=== PATIENT | female | born 1950 | race Caucasian/White ===

== ENCOUNTER → 2017-11-27 | Outpatient (CLI) | payer OTHER, MEDICARE ==
--- NOTE | 2017-11-27 20:15 | RADIOLOGY REPORT (SQ) ---
EXAM DESCRIPTION: MRI LUMBAR SPINE COMBO COMPLETED DATE/TIME: 11/27/2017 1:57 pm REASON FOR STUDY: OTHER SPONDYLOSIS WITH RADICULOPATHY, LUMBAR REGION (M47.26) M47.26 OTHER SPONDYL OSIS WITH RADICULOPATHY, LUMBAR REGION COMPARISON: PET-CT 04/11/2016 TECHNIQUE: Sagittal and Axial imaging includes T1, T1 post gadolinium, T2, STIR and gradient echo se quences. Coronal T2/HASTE imaging. CONTRAST TYPE AND DOSE: 15 mL Multihance. RENAL FUNCTION: GFR > 60. LIMITATIONS: None. FINDINGS: VISUALIZED UPPER ABDOMEN: Limited evaluation. No acute or suspicious findings suggested. SEGMENTATION: No transitional anatomy. The lowest well-developed disc space is labeled L5-S1. ALIGNMENT: Anatomic. VERTEBRAE: Intact. No fractures. BONE MARROW: Normal. No marrow replacement or reactive changes. DISC SIGNAL: Diffuse decreased T2 weighted intervertebral disc signal. High-grade disc space loss of height at L5-S1. POSTERIOR ELEMENTS: Right laminectomy at L3-4 HARDWARE: None in the spine. CORD AND CONUS: Normal in size and signal intensity. Conus at the L1-2 level. SOFT TISSUES: No aortic aneurysm seen. No bulky retroperitoneal adenopathy or mass. No paraspinal mas s or fluid. T11-12: Mild bilateral facet hypertrophy. No central or foraminal encroachment. T12-L1: No central or foraminal encroachment. L1-L2: Minimal posterior disc bulging. Mild bilateral facet and ligament hypertrophy. Borderline ce ntral canal narrowing. Mild bilateral inferior foraminal narrowing. L2-L3: Mild diffuse posterior disc bulging, moderate bilateral facet and ligament hypertrophy. Mild central canal narrowing. Mild bilateral inferior foraminal narrowing. L3-L4: Post right laminectomy. There is bulky bilateral facet hypertrophy, ligamentum flavum thicken ing, facet joint fluid. These findings combine with moderate posterior disc bulging cause moderate c entral canal narrowing with flattening of the thecal sac into a triangular shape, and effacement of t he CSF around the lumbar nerve roots. This is best shown on axial T2 image 18. Elsewhere at L3-4, there is moderate bilateral inferior foraminal narrowing without exiting L3 nerve root impingement. L4-L5: Mild diffuse posterior disc bulging, moderate bilateral facet and ligament hypertrophy. Borde rline central canal narrowing. Mild bilateral inferior foraminal narrowing. L5-S1: Mild diffuse posterior disc bulge with a small superimposed central protrusion. Moderate bila teral facet and ligament hypertrophy. No central stenosis. Moderate right, moderate left foraminal narrowing without definite exiting L5 nerve root impingement. SACRUM: Visualized upper sacrum intact. ENHANCEMENT: On the post contrasted images, there is enhancement of the ligamentum flavum a at L3-4. No abnormal conus or lumbar nerve root enhancement. OTHER: No other significant findings. IMPRESSION: Moderate central canal stenosis at L3-4 with facet arthropathy and enhancement of the li gamentum flavum. TECHNICAL DOCUMENTATION: JOB ID: [id number] [employer]- All Rights Reserved Reading location - IP/workstation name: [email or web address]
== END ==
LOC: RAD 12:51
PROVIDERS: ATTEND Neurological Surgery
DX: M47.26 Other spondylosis with radiculopathy, lumbar region (principal)
CPT/HCPCS: 82565; 72158; A9577

== ENCOUNTER 2018-08-10 07:26 | Day surgery (SDC) | payer BC, MEDICARE ==
--- NOTE | 2018-08-09 11:21 | RADIOLOGY REPORT (SQ) ---
EXAM DESCRIPTION: CHEST PA/LATERAL COMPLETED DATE/TIME: 08/09/2018 11:00 am REASON FOR STUDY: PRE-OP COMPARISON: 11/13/2013 EXAM PARAMETERS: NUMBER OF VIEWS: two views TECHNIQUE: Digital Frontal and Lateral radiographic views of the chest acquired. RADIATION DOSE: NA LIMITATIONS: none FINDINGS: LUNGS AND PLEURA: No opacities, masses or pneumothorax. No pleural effusion. MEDIASTINUM AND HILAR STRUCTURES: No masses or contour abnormalities. HEART AND VASCULAR STRUCTURES: Heart normal size. No evidence for failure. BONES: No acute findings. HARDWARE: None in the chest. OTHER: No other significant finding. IMPRESSION: NO SIGNIFICANT RADIOGRAPHIC FINDING IN THE CHEST. TECHNICAL DOCUMENTATION: JOB ID: [id number] [employer]- All Rights Reserved Reading location - IP/workstation name: [email or web address]
[2018-08-09 11:33] LABS: HEMATOCRIT 38.9 % (36.0-47.0); HEMOGLOBIN 13.5 g/dL (12.0-15.5); MEAN CORPUSCULAR HEMOGLOBIN 32.7 pg (27.0-33.4); MEAN CORPUSCULAR HGB CONC 34.7 g/dL (32.0-36.0); MEAN CORPUSCULAR VOLUME 94 fl (80-97); PLATELET COUNT 261 10^3/uL (150-450); RED BLOOD COUNT 4.12 10^6/uL (3.72-5.28); RED CELL DISTRIBUTION WIDTH 14.5 % (11.5-14.0); WHITE BLOOD COUNT 8.6 10^3/uL (4.0-10.5)
[2018-08-09 11:38] LABS: APPEARANCE,URINE CLOUDY; BILIRUBIN,URINE NEGATIVE (NEGATIVE); COLOR,URINE YELLOW; GLUCOSE, URINE NEGATIVE (NEGATIVE); KETONES,URINE NEGATIVE (NEGATIVE); LEUKOCYTE ESTERASE,URINE TRACE (NEGATIVE); NITRITE,URINE NEGATIVE (NEGATIVE); PROTEIN,URINE 30 mg/dL (NEGATIVE); URINE SPECIFIC GRAVITY 1.023; UROBILINOGEN,URINE NEGATIVE mg/dL (<2.0)
[2018-08-09 11:55] LABS: INTERNATIONAL RATION (INR) 0.94; PROTHROMBIN TIME 13.1 SEC (11.4-15.4)
[2018-08-09 11:56] LABS: PARTIAL THROMBOPLASTIN TIME 30.3 SEC (23.5-35.8)
--- NOTE | 2018-08-09 18:38 | EKG REPORT ---
SEVERITY:- NORMAL ECG - SINUS RHYTHM : Confirmed by: Kwabena Glover 09-Aug-2018 18:36:37
[~2018-08-10 07:26] MED LIST: CEFAZOLIN 1 GM/D5W RTU 1 GM/50 ML RTUPB IV PRN; LACTATED RINGERS 1000 ML IV PRN; LIDOCAINE 0.5% INJ-PF (5 MG/ML) 50 ML SDV SUBCUT PRN
[2018-08-10] MEDS ORDERED: BUPIVACAINE HCL 0.25% /EPINEPHRINE INJ/PF 30 ML SDV ONE ×2 (07:32→10:47)
[2018-08-10] MEDS ORDERED: SODIUM BICARBONATE 8.4% INJ 50 MEQ/50 ML DISP.SYRIN ONE (07:32)
[2018-08-10] MEDS ORDERED: LIDOCAINE 1% INJ-PF (10 MG/ML) 30 ML SDV ONE ×2 (07:32→10:50)
[2018-08-10] MEDS ORDERED: CEFAZOLIN 1 GM/D5W RTU 1 GM/50 ML RTUPB IV ONE (07:37)
[2018-08-10] MEDS ORDERED: ALBUTEROL SULFATE 0.083% NEB 2.5 MG/3 ML AMPUL NEB PRN (08:47)
[2018-08-10] MEDS ORDERED: ALBUTEROL SULFATE 0.083% NEB 2.5 MG/3 ML AMPUL NEB ONE (09:03)
[2018-08-10] MEDS ORDERED: MIDAZOLAM 2 MG/2 ML INJ ONE ×2 (09:18→10:02)
[2018-08-10] MEDS ORDERED: ONDANSETRON HCL INJ/PF 4 MG/2 ML SDV ONE (10:02)
[2018-08-10] MEDS ORDERED: FENTANYL CITRATE INJ/PF 100 MCG/2 ML AMPUL ONE (10:02)
[2018-08-10] MEDS ORDERED: PROPOFOL INJ 200 MG/20 ML VIAL IV ONE (10:03)
[2018-08-10] MEDS ORDERED: DIPHENHYDRAMINE HCL 50 MG/ML VIAL IV PRN (10:42)
[2018-08-10] MEDS ORDERED: PROMETHAZINE HCL INJ 25 MG/1 ML VIAL IV PRN (10:42)
[2018-08-10] MEDS ORDERED: MEPERIDINE HCL/PF INJ 25 MG/1 ML DISP.SYRIN IV PRN (10:42)
[2018-08-10] MEDS ORDERED: FENTANYL CITRATE INJ/PF 100 MCG/2 ML AMPUL IV PRN ×3 (10:42)
[2018-08-10] MEDS ORDERED: MORPHINE SULFATE 10 MG/ML INJ IV PRN (10:42)
[2018-08-10] MEDS ORDERED: CEFAZOLIN INJ 1 GM VIAL ONE (12:00)
[2018-08-10] MEDS: FENTANYL CITRATE INJ/PF 100 MCG/2 ML AMPUL ONE ×2 (12:05→12:15)
[2018-08-10] MEDS ORDERED: OXYCODONE-ACETAMINOPHEN 5-325 MG TABLET PO PRN (12:16)
--- NOTE | 2018-08-10 12:27 | OPERATIVE REPORT E ---
Operative Report NAME: PARESH FRANCISCO : 1950 AGE: 67Y DATE OF SURGERY: 08/10/2018 ROOM: PREOPERATIVE DIAGNOSIS: Lumbar radiculopathy. POSTOPERATIVE DIAGNOSIS: Lumbar radiculopathy. OPERATION: Spinal cord stimulator implantation with Dual leads and pulse generator lumbar radiculopathy with [employer]. SURGEON: JUAN ALBERTO ALEXANDRA M.D. TRAIN ATTENDANT: Raman Acosta MD ANESTHESIA: MAC. COMPLICATIONS: None. PROCEDURE IN DETAIL: After obtaining informed consent, I advised the patient of all the risks and benefits including serious neurologic injury, bleeding, infection, spinal fluid leak, allergic reaction, paralysis, nerve injury, , and failure to obtain satisfactory relief. She was taken to the operating room, placed comfortably in the prone position. MAC anesthesia was administered after application of monitoring. She was then prepped with ChloraPrep x2 and then draped. After appropriate waiting and drying time, she was then evaluated under fluoroscopy and adequate space was found at T12-L1. The skin over both of the pre-marked buttock incision on the left and the midline were anesthetized with 1% lidocaine with bicarbonate followed by 0.25% bupivacaine with epinephrine. Beginning at the midline incision, sharp and blunt dissection was performed down to the fascia. Using a left paramedian approach, a 14-gauge Tuohy needle was placed into the epidural space at T12-L1 level. Loss of resistance with saline technique was utilized beginning with the first needle. Electrode was advanced under fluoroscopic guidance at the bottom of T7, being positioned in the midline. A second lead was placed through a second needle using the same technique with loss of resistance to saline using a right paramedian approach on the right side. Lateral views were taken and initially showed satisfactory placement. The leads were then tested and appropriate stimulation was found with discussion with the patient and the [employer] rep. Once again, the lead was then secured using pursestrings with anchors in place. The anchors were then sutured in place. The needles were removed sequentially and the pursestrings were secured and the anchor was placed and secured as well. While lead positioning was occurring, Raman Acosta M.D. was assisting in creating the pocket for the new pulse generator. As soon as the pocket was made, proper hemostasis was confirmed. The skin between tunneling had been performed using anesthesia, 1% lidocaine and standard tunneling tool. Both incisions were felt to be satisfactory and proper hemostasis was confirmed. The wires were easily placed in the midline incision and stitched to the pocket and connected to the pulse generator which was then tested and appropriate communication was made. All connections were secured and the generator was then placed in the pocket, assessed and found to be satisfactory. Position was again checked via fluoroscopy in both the AP and lateral views. The wounds were then copiously irrigated. The areas were then closed with interrupted vertical mattress sutures using 3-0 Vicryl and 2-0 Vicryl for the deeper layer in the midline. Tape and Dermabond and skin cement was used. No mala were used. OpSite dressings were placed over the tape. The patient was then taken to the PACU for further postoperative care, wound care and management. DICTATING PHYSICIAN: JUAN ALBERTO ALEXANDRA M.D. [id number] PHY#: [id number] ID: [id number] JOB#: [id number] ACCT: [id number] cc:JUAN ALBERTO ALEXANDRA M.D. >
[2018-08-10] MEDS ORDERED: ACETAMINOPHEN 1,000 MG/100 ML RTUPB IV ONE (12:43)
[2018-08-10] MEDS ORDERED: KETOROLAC TROMETHAMINE INJ/PF 30 MG/1 ML SDV ONE (13:28)
--- NOTE | 2018-08-10 13:38 | RADIOLOGY REPORT (SQ) ---
EXAM DESCRIPTION: NO CHG FLUORO; THORACOLUMBAR SPINE AP/LAT COMPLETED DATE/TIME: 08/10/2018 12:58 pm REASON FOR STUDY: SPINAL STIMULATOR PLCMT ASST WITH FLUORO IN OR COMPARISON: None. FLUOROSCOPY TIME: 4.1 minutes 7 Images saved to PACS LIMITATIONS: None. PROCEDURE: Neurostimulator electrode placement. FINDINGS: Images from fluoro document the placement of the neurostimulator electrodes in the mid to lower thoracic spine. IMPRESSION: Neurostimulator electrode placement. Refer to operative note for further information. COMMENT: PQRS 6045F: Fluoroscopy time of the procedure is documented in the report. TECHNICAL DOCUMENTATION: JOB ID: [id number] [employer]- All Rights Reserved Reading location - IP/workstation name: [email or web address]
--- NOTE | 2018-08-10 13:38 | RADIOLOGY REPORT (SQ) ---
EXAM DESCRIPTION: NO CHG FLUORO; THORACOLUMBAR SPINE AP/LAT COMPLETED DATE/TIME: 08/10/2018 12:58 pm REASON FOR STUDY: SPINAL STIMULATOR PLCMT ASST WITH FLUORO IN OR COMPARISON: None. FLUOROSCOPY TIME: 4.1 minutes 7 Images saved to PACS LIMITATIONS: None. PROCEDURE: Neurostimulator electrode placement. FINDINGS: Images from fluoro document the placement of the neurostimulator electrodes in the mid to lower thoracic spine. IMPRESSION: Neurostimulator electrode placement. Refer to operative note for further information. COMMENT: PQRS 6045F: Fluoroscopy time of the procedure is documented in the report. TECHNICAL DOCUMENTATION: JOB ID: [id number] [employer]- All Rights Reserved Reading location - IP/workstation name: [email or web address]
[2018-08-10] MEDS ORDERED: OXYCODONE-ACETAMINOPHEN 5-325 MG TABLET ONE (13:59)
[2018-08-10 16:22] VITALS: BP 122/62
== END 2018-08-10 16:00 | disposition home or self-care (01) ==
LOC: OROUT 07:26
PROVIDERS: ATTEND Student in an Organized Health Care Education/Training Program
DX: M54.16 Radiculopathy, lumbar region (principal); Z79.899 Other long term (current) drug therapy; Z79.82 Long term (current) use of aspirin; F17.210 Nicotine dependence, cigarettes, uncomplicated; M19.90 Unspecified osteoarthritis, unspecified site; Z85.3 Personal history of malignant neoplasm of breast
CPT/HCPCS: 93005; 36415; 85027; 85610; 85730; 81001; 71046; 72080; 93010; 94640; 63685; 63650; C1778; C1820; C1713; J2250; J3490 ×3; J0690 ×2; J3010; J1885; J2405; J2704; J0131; 1936

== ENCOUNTER 2018-08-11 12:45 | Emergency (ER) | payer BC, MEDICARE ==
--- NOTE | 2018-08-11 13:14 | ER Document Report ---
ED General - General Chief Complaint: Back Pain Stated Complaint: BACK PAIN Time Seen by Provider: 08/11/18 13:13 TRAVEL OUTSIDE OF THE [place] IN LAST 30 DAYS: No - Related Data Allergies/Adverse Reactions: No Known Allergies Allergy (Verified 08/10/18 07:42) Past Medical History - Social History Smoking Status: Former Smoker Smoking Education Provided: Yes Family History: Reviewed & Not Pertinent - Past Medical History Cardiac Medical History: Denies: Hx Coronary Artery Disease, Hx Heart Attack, Hx Hypertension Pulmonary Medical History: Denies: Hx Asthma, Hx Bronchitis, Hx COPD, Hx Pneumonia Neurological Medical History: Denies: Hx Cerebrovascular Accident, Hx Seizures Musculoskeletal Medical History: Denies Hx Arthritis Psychiatric Medical History: Reports: Hx Anxiety - Immunizations Hx Diphtheria, Pertussis, Tetanus Vaccination: Yes Physical Exam - Vital signs Vitals: Temp Pulse Resp BP Pulse Ox 97.9 F 92 18 115/88 H 95 08/11/18 12:56 08/11/18 12:56 08/11/18 12:56 08/11/18 12:56 08/11/18 12:56 Course - Re-evaluation Re-evalutation: 67-year-old female who underwent implantation of a spinal stimulator yesterday for chronic pain and issues worse usually in her left leg who thereafter had worsening pain in her right leg following returning home. Her examination however does not demonstrate any obvious neurologic deficit she has intact patellar reflexes. She has intact strength in all extensors and flexors in her right lower extremity, 5 out of 5. Sp[address] Juan Alberto Trevino her anesthesiologist and interventionalist who performed her procedure yesterday he notes that his concerns would potentially be neuritis as a result of lead implantation possible DVT or hematoma around the spine. He had requested that the patient come to his office which she said because of the pain she was concerned she would be unable to make it. I discussed with the patient the concerns expressed by Dr. Trevino, though my examination is not consistent with DVT or an obvious hematoma as she is neurologically intact in the right lower extremity it is still possibly a risk, she stated that if she could have the appropriate level of pain control she does not think there would be an issue. She states that she does not wish to pursue workup of these diagnoses at this time. Because of this we agreed to treat presumptively neuritis with a burst of steroids. She also is able to see Dr. Trevino tomorrow in his office as he is agreed to this with me on the phone earlier. She stated that she will use the steroids prescribed, I did give her a shot of Toradol in the emergency department which helped greatly with her pain she also got a low-dose of an oral narcotic. Following administration of these analgesia measurements her pain did improve and she was able to ambulate with little assistance. I do not believe that she requires further investigation at this time she agreed with me. We will plan for her to undergo discharge and follow-up tomorrow with Dr. Trevino. At this time I do not believe that she has a DVT, large hematoma, CVA, or cauda equina syndrome. - Vital Signs Vital signs: Temp Pulse Resp BP Pulse Ox 97.7 F 85 18 141/60 H 93 08/11/18 15:47 08/11/18 15:47 08/11/18 15:47 08/11/18 15:47 08/11/18 15:47 Discharge - Discharge Clinical Impression: Leg pain, right Post-operative complication Qualifiers: Surgical complication system/body Area: musculoskeletal system Surgical complication type: unspecified Procedure type: musculoskeletal Qualified Code(s) : M96.89 - Other intraoperative and postprocedural complications and disorders of the musculoskeletal system Condition: Good Disposition: HOME, SELF-CARE Instructions: Oral Narcotic Medication ([facility]), Steroid Medication Additional Instructions: You were seen today in the emergency department for the pain in your leg after having a procedure done yesterday. You had evaluation including a physical exam. I spoke to your doctor, Dr. Lim. He is willing to see you tomorrow in clinic. Call his clinic at [phone] for your appointment tomorrow. Use the steroids prescribed to you as directed to help with your possible neuritis. Use the pain medication only as needed. We spoke about whether or not this could potentially be a clot in your leg or hematoma both which seem unlikely. We deferred doing any studies today, if you return we will consider doing further tests. If you are unable to go to your doctor tomorrow please return and we will reevaluate you. Prescriptions: Hydrocodone/Acetaminophen [[place] 10-325 Tablet] 1 each PO Q8 PRN 2 Days #5 tablet PRN Reason: For Pain Scale 4-5 Prednisone 50 mg PO DAILY 5 Days #5 tablet Referrals: JUAN ALBERTO TREVINO MD [ACTIVE STAFF] - Follow up tomorrow
[2018-08-11] MEDS ORDERED: OXYCODONE-ACETAMINOPHEN 5-325 MG TABLET PO ONE (13:44)
[2018-08-11] MEDS ORDERED: PREDNISONE 20 MG TABLET PO ONE (14:26)
[2018-08-11] MEDS ORDERED: KETOROLAC TROMETHAMINE 60 MG/2 ML SDV IM ONE (14:29)
[2018-08-11 15:49] VITALS: BP 141/60
== END 2018-08-11 15:49 | disposition home or self-care (01) ==
LOC: ER 12:45
DX: M96.89 Other intraoperative and postprocedural complications and disorders of the musculoskeletal system (principal); Y83.8 Other surgical procedures as the cause of abnormal reaction of the patient, or of later complication, without mention of misadventure at the time of the procedure; M79.604 Pain in right leg; G89.29 Other chronic pain
CPT/HCPCS: 99283; 96372; J1885; J7512

== ENCOUNTER 2018-09-10 10:26 | Emergency (ER) | payer BC, MEDICARE ==
[2018-09-10] MEDS ORDERED: NORMAL SALINE 500 ML IV ONE (11:02)
[2018-09-10 11:56] LABS: HEMATOCRIT 40.4 % (36.0-47.0); HEMOGLOBIN 13.7 g/dL (12.0-15.5); MEAN CORPUSCULAR HEMOGLOBIN 31.9 pg (27.0-33.4); MEAN CORPUSCULAR HGB CONC 33.8 g/dL (32.0-36.0); MEAN CORPUSCULAR VOLUME 94 fl (80-97); PLATELET COUNT 316 10^3/uL (150-450); RED BLOOD COUNT 4.29 10^6/uL (3.72-5.28); WHITE BLOOD COUNT 22.2 10^3/uL (4.0-10.5)
[2018-09-10 12:14] LABS: ALANINE AMINOTRANSFERASE 24 U/L (9-52); ALBUMIN 4.6 g/dL (3.5-5.0); ALKALINE PHOSPHATASE 140 U/L (38-126); ANION GAP 11 (5-19); ASPARTATE AMINO TRANSFERASE 80 U/L (14-36); BILIRUBIN,DIRECT 0.3 mg/dL (0.0-0.4); BILIRUBIN,TOTAL 0.6 mg/dL (0.2-1.3); BLOOD UREA NITROGEN 18 mg/dL (7-20); CALCIUM 9.8 mg/dL (8.4-10.2); CARBON DIOXIDE 26 mmol/L (22-30); CHLORIDE 105 mmol/L (98-107); GLUCOSE 115 mg/dL (75-110); POTASSIUM 4.2 mmol/L (3.6-5.0); SODIUM 142.2 mmol/L (137-145); TOTAL PROTEIN 8.2 g/dL (6.3-8.2)
[2018-09-10 12:20] LABS: ABSOLUTE LYMPHOCYTES# (MANUAL) 2.7 10^3/uL (0.5-4.7); ABSOLUTE MONOCYTES # (MANUAL) 0.9 10^3/uL (0.1-1.4); ABSOLUTE NEUTROPHILS# (MANUAL) 18.6 10^3/uL (1.7-8.2); BASOPHILS % (MANUAL) 0 % (0-2); EOSINOPHILS % (MANUAL) 0 % (0-6); LYMPHOCYTES % (MANUAL) 11 % (13-45); MONOCYTES % (MANUAL) 4 % (3-13); PLATELET COMMENT ADEQUATE; RBC MORPHOLOGY COMMENT NORMO-CYTIC/CHROMIC; SEGMENTED NEUTROPHILS % (MAN) 84 % (42-78); TOTAL CELLS COUNTED 100
[2018-09-10 12:26] LABS: C-REACTIVE PROTEIN 185.5 mg/L (<10.0)
[2018-09-10 12:32] LABS: ERYTHROCYTE SEDIMENTATION RATE 54 mm/hr (0-30)
--- NOTE | 2018-09-10 14:07 | RADIOLOGY REPORT (SQ) ---
EXAM DESCRIPTION: CT HEAD WITHOUT COMPLETED DATE/TIME: 09/10/2018 1:52 pm REASON FOR STUDY: rle weakness COMPARISON: None. TECHNIQUE: Axial images acquired through the brain without intravenous contrast. Images reviewed wi th bone, brain and subdural windows. Additional sagittal and coronal reconstructions were generated. Images stored on PACS. All CT scanners at this facility use dose modulation, iterative reconstruction, and/or weight based d osing when appropriate to reduce radiation dose to as low as reasonably achievable (ALARA). [facility]: Dose Right [facility]: CareDose [facility]: Dose Right [facility]: Teradose 4D [facility]: Smart hopTo RADIATION DOSE: CT Rad equipment meets quality standard of care and radiation dose reduction techniq ues were employed. CTDIvol: 53.2 mGy. DLP: 991 mGy-cm. mGy. LIMITATIONS: None. FINDINGS: VENTRICLES: Normal size and contour. CEREBRUM: No masses. No hemorrhage. No midline shift. No evidence for acute infarction. Normal gra y/white matter differentiation. No areas of low density in the white matter. CEREBELLUM: No masses. No hemorrhage. No alteration of density. No evidence for acute infarction. EXTRAAXIAL SPACES: No fluid collections. No masses. ORBITS AND GLOBE: No intra- or extraconal masses. Normal contour of globe without masses. CALVARIUM: No fracture. PARANASAL SINUSES: Mucosal thickening of the maxillary sinuses and ethmoid air cells with small bila teral air fluid levels of the maxillary sinuses. SOFT TISSUES: No mass or hematoma. OTHER: No other significant finding. IMPRESSION: 1. NO ACUTE INTRACRANIAL IMAGING FINDINGS. 2. Paranasal sinus disease. Correlate for signs and symptoms of acute sinusitis. EVIDENCE OF ACUTE STROKE: NO. COMMENT: Quality ID # [id number]: Final reports with documentation of one or more dose reduction techniques (e.g., Automated exposure control, adjustment of the mA and/or kV according to patient size, use of iterative reconstruction technique) TECHNICAL DOCUMENTATION: JOB ID: [id number] [employer] - [facility]- All Rights Reserved Reading location - IP/workstation name: [email or web address]
--- NOTE | 2018-09-10 16:25 | RADIOLOGY REPORT (SQ) ---
EXAM DESCRIPTION: MRI LUMBAR SPINE COMBO COMPLETED DATE/TIME: 09/10/2018 3:35 pm REASON FOR STUDY: Right leg weakness history of spinal stimulator COMPARISON: None. TECHNIQUE: Sagittal and Axial imaging includes T1, T1 post gadolinium, T2, STIR and gradient echo se quences. Coronal T2/HASTE imaging. CONTRAST TYPE AND DOSE: ML RENAL FUNCTION: Creatinine 0.8 LIMITATIONS: None. FINDINGS: VISUALIZED UPPER ABDOMEN: Limited evaluation. No acute or suspicious findings suggested. SEGMENTATION: No transitional anatomy. The lowest well-developed disc space is labeled L5-S1. ALIGNMENT: Anatomic. VERTEBRAE: Intact. No fractures. BONE MARROW: Normal. No marrow replacement or reactive changes. DISC SIGNAL: Disc desiccation and height loss at L5-S1. Remaining discs demonstrate normal signal. Posterior disc bulges as detailed below. POSTERIOR ELEMENTS: Generally intact. No pars defect evident. HARDWARE: Partially evaluated spinal stimulator device. CORD AND CONUS: There is increased T2 and STIR signal abnormality within the visualized cord extendin g from T12-L1. Cord demonstrates mild diffuse expansion compared to prior. Conus terminates at L2. SOFT TISSUES: No aortic aneurysm seen. No bulky retroperitoneal adenopathy or mass. No paraspinal mas s or fluid. L1-L2: Small broad-based disc bulge without significant spinal canal stenosis or neural foraminal aj rowing. L2-L3: Small broad-based disc bulge without significant spinal canal stenosis or neural foraminal aj rowing. L3-L4: Evidence of prior micro laminectomy on the right. Moderate broad-based disc bulge with associ ated facet hypertrophy and postsurgical changes from the micro laminectomy resulting in high-grade sp inal canal stenosis. Likely 3 mm synovial cyst on the left. Moderate bilateral neural foraminal aj rowing. L4-L5: Broad-based disc bulge and ligamentum flavum thickening with mild canal stenosis. Mild bilate ral neural foraminal narrowing. L5-S1: Disc desiccation and height loss with central disc extrusion resulting in mild canal stenosis and abutting the traversing nerve roots bilaterally. There is jezs-xy-suzitwic bilateral neural fora dm narrowing. LOWER THORACIC: Incompletely imaged. No stenosis seen. SACRUM: Visualized upper sacrum intact. ENHANCEMENT: No abnormal masslike enhancement. OTHER: Postsurgical change in the posterior subcutaneous tissue. No focal drainable collection or ma ss. IMPRESSION: 1. Mild diffuse cord expansion and abnormal signal in the visualized cord extending fro m T12-L1. Differential includes cord edema or spinal cord infarct. 2. Multilevel degenerative changes with high-grade spinal canal stenosis at L3-4 secondary to disc, facet and postsurgical change. 3. Additional multilevel degenerative changes as detailed above. COMMENT: Findings discussed with Dr. Cortez at the time of interpretation. TECHNICAL DOCUMENTATION: JOB ID: [id number] [employer]- All Rights Reserved Reading location - IP/workstation name: [email or web address]
[2018-09-10 16:28] LABS: APPEARANCE,URINE CLEAR; BILIRUBIN,URINE NEGATIVE (NEGATIVE); COLOR,URINE YELLOW; GLUCOSE, URINE NEGATIVE (NEGATIVE); KETONES,URINE 20 mg/dL (NEGATIVE); LEUKOCYTE ESTERASE,URINE NEGATIVE (NEGATIVE); NITRITE,URINE NEGATIVE (NEGATIVE); PROTEIN,URINE >=500 mg/dL (NEGATIVE); URINE SPECIFIC GRAVITY 1.017; UROBILINOGEN,URINE NEGATIVE mg/dL (<2.0)
--- NOTE | 2018-09-10 16:30 | ER Document Report ---
ED General - General TRAVEL OUTSIDE OF THE U.S. IN LAST 30 DAYS: No - HPI Patient complains to provider of: Right leg weakness <BUCK GALLO - Last Filed: 09/10/18 16:37> <VALENTINO ZARATE - Last Filed: 09/11/18 02:33> - General Chief Complaint: Fall Stated Complaint: RIGHT LEG WEAKNESS Time Seen by Provider: 09/10/18 10:53 - HPI Notes: Patient coming in for evaluation of right leg weakness. Patient on August 10 had a spinal cord similar placed in patient did follow-up on the due to some right leg weakness was thought to be postop neuritis started on steroids patient states did have a period of feeling better however worse over the last few days patient was able to see the paint roller cover machine setter that placed the stimulator in 24 hours ago was scheduled to have MRI however unfortunately did not have the proper equipment to have the MRI performed patient continued to have right leg weakness therefore came to the ER today for further evaluation. Patient states that she has had bowel bladder incontinence along with numbness and tingling of the perineal region. Patient states that she has been having difficulty in ambulating EMS reports that the patient was dragging her right foot when trying to get to the EMS stretcher. Patient otherwise does have a history of anxiety and hypertension. Patient denies any fevers chills or nausea (BUCK GALLO) - Related Data Allergies/Adverse Reactions: No Known Allergies Allergy (Verified 08/10/18 07:42) Past Medical History - Social History Smoking Status: Former Smoker Frequency of alcohol use: Social Drug Abuse: Marijuana Family History: Reviewed & Not Pertinent Patient has suicidal ideation: No Patient has homicidal ideation: No - Past Medical History Cardiac Medical History: Denies: Hx Coronary Artery Disease, Hx Heart Attack, Hx Hypertension Pulmonary Medical History: Denies: Hx Asthma, Hx Bronchitis, Hx COPD, Hx Pneumonia Neurological Medical History: Denies: Hx Cerebrovascular Accident, Hx Seizures Renal/ Medical History: Denies: Hx Peritoneal Dialysis Musculoskeletal Medical History: Denies Hx Arthritis Psychiatric Medical History: Reports: Hx Anxiety Past Surgical History: Reports: Hx Appendectomy, Hx Breast Surgery - lumpectomy, Hx Hysterectomy, Hx Neurologic Surgery - spinal stimulator 08/10/2018, Hx Orthopedic Surgery - L knee - Immunizations Hx Diphtheria, Pertussis, Tetanus Vaccination: Yes <BUCK GALLO - Last Filed: 09/10/18 16:37> Review of Systems - Review of Systems Constitutional: No symptoms reported EENT: No symptoms reported Cardiovascular: No symptoms reported Respiratory: No symptoms reported Gastrointestinal: No symptoms reported Genitourinary: No symptoms reported Female Genitourinary: No symptoms reported Musculoskeletal: Other - Weakness Skin: No symptoms reported Hematologic/Lymphatic: No symptoms reported Neurological/Psychological: Weakness -: Yes All other systems reviewed and negative <BUCK GALLO - Last Filed: 09/10/18 16:37> Physical Exam - Vital signs Interpretation: Normal - General General appearance: Appears well, Alert - HEENT Head: Normocephalic, Atraumatic Eyes: Normal Pupils: PERRL - Respiratory Respiratory status: No respiratory distress Chest status: Nontender Breath sounds: Normal Chest palpation: Normal - Cardiovascular Rhythm: Regular Heart sounds: Normal auscultation Murmur: No - Abdominal Inspection: Normal Distension: No distension Bowel sounds: Normal Tenderness: Nontender Organomegaly: No organomegaly - Back Back: Normal, Nontender - Extremities General upper extremity: Normal inspection, Nontender, Normal color, Normal ROM, Normal temperature General lower extremity: Normal inspection, Nontender, Normal color, Normal ROM, Normal temperature, Normal weight bearing. No: Sigrid's sign - Neurological Neuro grossly intact: Yes Cognition: Normal Orientation: AAOx4 Max Coma Scale Eye Opening: Spontaneous [place] Coma Scale Verbal: Oriented [place] Coma Scale Motor: Obeys Commands Max Coma Scale Total: 15 Speech: Normal Sensory: Normal - Psychological Associated symptoms: Normal affect, Normal mood - Skin Skin Temperature: Warm Skin Moisture: Dry Skin Color: Normal <BUCK GALLO - Last Filed: 09/10/18 16:37> - Vital signs Vitals: Resp Pulse Ox 14 94 09/10/18 10:32 09/10/18 10:32 - Rectal Notes: Patient with no rectal tone on examination patient does have sensation around the anal region however states that it feels different and not normal however the abnormal feeling of bilateral patient also has feeling sensation bilateral gluteal regions however again states that it feels abnormal but equal bilateral (BUCK GALLO) - Neurological Notes: Patient is unable to lift her leg off the stretcher has no effort with plantar or dorsiflexion of the right leg minimal with the left leg is only able to lift her left leg off the stretcher approximately 2 cm. Deep tendon reflexes are intact at the patella (BUCK GALLO) Course - Laboratory Result Diagrams: 09/10/18 11:25 09/10/18 11:25 <BUCK GALLO - Last Filed: 09/10/18 16:37> - Laboratory Result Diagrams: 09/10/18 11:25 09/10/18 11:25 <VALENTINO ZARATE - Last Filed: 09/11/18 02:33> - Re-evaluation Re-evalutation: 09/10/18 16:40 Patient's procedure was performed by Dr. Trevino of [facility] here in [place] was able to contact him who requested sed rate CBC CRP and MRI with IV contrast be performed. I have just received word from the radiologist that there is abnormal cord signal at T12-L1 is consistent with possible infarction versus edema otherwise patient does have otherwise chronic findings. I did notify the patient of these findings and they recommend transfer for neurological neurosurgical evaluation. Patient initially requested to go to [facility] then to [facility] with no symptoms is that these 3 facilities are on diversion at this time is that they are at capacity. Did contact [facility] currently waiting call back (BUCK GALLO) 09/10/18 17:18 Dr. Trevino called regarding the patient. He states that he has spoken to a neurosurgeon at [facility] who states that the spinal stimulator should be removed immediately. He questioned where the patient was going and states that he will call me back regarding a change in transfer. 09/10/18 17:34 Dr. Trevino called back and stated that neurosurgery said to continue with the transfer to [facility]. He states that he will come and assess the patient now. 09/10/18 17:35 Patient requesting her home medication of clonazepam. Patient also requesting cough medicine. 09/11/18 02:33 Patient evaluated upon transfer team arrival vital signs stable. Patient stable for transfer. (VALENTINO ZARATE) - Vital Signs Vital signs: Temp Pulse Resp BP Pulse Ox 98 F 110 H 22 H 120/50 L 94 09/10/18 23:00 09/10/18 22:21 09/10/18 23:01 09/10/18 23:01 09/10/18 22:50 - Laboratory Laboratory results interpreted by me: 09/10/18 09/10/18 09/10/18 11:25 11:25 16:10 WBC 22.2 H Seg Neuts % (Manual) 84 H Lymphocytes % (Manual) 11 L Abs Neuts (Manual) 18.6 H ESR 54 H Glucose 115 H AST 80 H Alkaline Phosphatase 140 H C-Reactive Protein 185.5 H Urine Protein >=500 H Urine Ketones 20 H Critical Care Note - Critical Care Note Total time excluding time spent on procedures (mins): 35 <BUCK GALLO - Last Filed: 09/10/18 16:37> - Critical Care Note Comments: Multiple evaluation for patient with abnormal neurological findings. (BUCK GALLO) Discharge <BUCK GALLO - Last Filed: 09/10/18 16:37> <VALENTINO ZARATE - Last Filed: 09/11/18 02:33> - Discharge Clinical Impression: Edema, spinal cord, Right leg weakness Bowel incontinence Qualifiers: Fecal incontinence type: unspecified Qualified Code(s): R15.9 - Full incontinence of feces Bladder incontinence Qualifiers: Urinary Incontinence type: unspecified incontinence Qualified Code(s): R32 - Unspecified urinary incontinence Condition: Good Disposition: [place]
[2018-09-10] MEDS ORDERED: CLONAZEPAM 1 MG TABLET PO ONE (17:19)
[2018-09-10] MEDS ORDERED: BENZONATATE 100 MG CAPSULE PO ONE (20:42)
[2018-09-10 23:46] VITALS: BP 120/50
== END 2018-09-10 23:30 | disposition short-term general hospital (02) ==
LOC: ER 10:26
DX: R15.9 Full incontinence of feces (principal); G95.19 Other vascular myelopathies; R32 Unspecified urinary incontinence; R53.1 Weakness; R20.2 Paresthesia of skin; R26.2 Difficulty in walking, not elsewhere classified; I10 Essential (primary) hypertension; F41.9 Anxiety disorder, unspecified; Z79.899 Other long term (current) drug therapy; Z96.89 Presence of other specified functional implants; Z87.891 Personal history of nicotine dependence
CPT/HCPCS: 99291; 96360; 51701; 36415; 87040; 85025; 85652; 86140; 80053; 81001; 72158; 70450; A9576; J7040

== ENCOUNTER 2018-11-15 17:03 | Inpatient (IN) | payer BC, MEDICARE ==
[2018-11-15 18:31] LABS: ABSOLUTE BASOPHILS # (AUTO) 0.1 10^3/uL (0.0-0.2); ABSOLUTE EOSINOPHILS # (AUTO) 0.2 10^3/uL (0.0-0.6); ABSOLUTE LYMPHOCYTES (AUTO) 3.4 10^3/uL (0.5-4.7); ABSOLUTE MONOCYTES (AUTO) 1.4 10^3/uL (0.1-1.4); ABSOLUTE NEUT (AUTO) 11.3 10^3/uL (1.7-8.2); BASOPHILS % (AUTO) 0.8 % (0-2); HEMATOCRIT 28.5 % (36.0-47.0); HEMOGLOBIN 9.5 g/dL (12.0-15.5); MEAN CORPUSCULAR HEMOGLOBIN 29.5 pg (27.0-33.4); MEAN CORPUSCULAR HGB CONC 33.5 g/dL (32.0-36.0); MEAN CORPUSCULAR VOLUME 88 fl (80-97); MONOCYTES % (AUTO) 8.3 % (3-13); PLATELET COUNT 467 10^3/uL (150-450); RED BLOOD COUNT 3.23 10^6/uL (3.72-5.28); RED CELL DISTRIBUTION WIDTH 14.5 % (11.5-14.0); SEGMENTED NEUTROPHILS % (AUTO) 68.9 % (42-78); TOTAL CELLS COUNTED % (AUTO) 100 %; WHITE BLOOD COUNT 16.3 10^3/uL (4.0-10.5)
--- NOTE | 2018-11-15 18:34 | ER Document Report ---
ED General - General Chief Complaint: General Weakness Stated Complaint: WEAKNESS Time Seen by Provider: 11/15/18 18:33 Mode of Arrival: Medic Information source: Patient, Relative TRAVEL OUTSIDE OF THE [place].S. IN LAST 30 DAYS: No - HPI Onset: Just prior to arrival Onset/Duration: Sudden Quality of pain: No pain Severity: None Pain Level: Denies Associated symptoms: None Exacerbated by: Denies Relieved by: Denies Similar symptoms previously: No Recently seen / treated by doctor: Yes - Related Data Allergies/Adverse Reactions: No Known Allergies Allergy (Verified 08/10/18 07:42) Past Medical History - Social History Smoking Status: Former Smoker Family History: Reviewed & Not Pertinent Patient has suicidal ideation: No Patient has homicidal ideation: No - Past Medical History Cardiac Medical History: Denies: Hx Coronary Artery Disease, Hx Heart Attack, Hx Hypertension Pulmonary Medical History: Denies: Hx Asthma, Hx Bronchitis, Hx COPD, Hx Pneumonia Neurological Medical History: Denies: Hx Cerebrovascular Accident, Hx Seizures Renal/ Medical History: Denies: Hx Peritoneal Dialysis Musculoskeletal Medical History: Denies Hx Arthritis Psychiatric Medical History: Reports: Hx Anxiety Past Surgical History: Reports: Hx Appendectomy, Hx Breast Surgery - lumpectomy, Hx Hysterectomy, Hx Neurologic Surgery - spinal stimulator 08/10/2018, Hx Orthopedic Surgery - L knee - Immunizations Hx Diphtheria, Pertussis, Tetanus Vaccination: Yes Review of Systems - Review of Systems Constitutional: No symptoms reported EENT: No symptoms reported Cardiovascular: No symptoms reported Respiratory: No symptoms reported Gastrointestinal: No symptoms reported Genitourinary: Dysuria Female Genitourinary: No symptoms reported Musculoskeletal: No symptoms reported Skin: No symptoms reported Hematologic/Lymphatic: No symptoms reported Neurological/Psychological: No symptoms reported -: Yes All other systems reviewed and negative Physical Exam - Vital signs Vitals: Resp Pulse Ox 12 88 L 11/15/18 17:14 11/15/18 17:14 Interpretation: Normal - General General appearance: Appears well, Alert - HEENT Head: Normocephalic, Atraumatic Eyes: Normal Pupils: PERRL - Respiratory Respiratory status: No respiratory distress Chest status: Nontender Breath sounds: Normal Chest palpation: Normal - Cardiovascular Rhythm: Regular Heart sounds: Normal auscultation Murmur: No - Abdominal Inspection: Normal Distension: No distension Bowel sounds: Normal Tenderness: Nontender Organomegaly: No organomegaly - Back Back: Normal, Nontender - Extremities General upper extremity: Normal inspection, Nontender, Normal color, Normal ROM, Normal temperature General lower extremity: Normal inspection, Nontender, Normal color, Normal ROM, Normal temperature, Normal weight bearing. No: Sigrid's sign - Neurological Neuro grossly intact: Yes Cognition: Normal Orientation: AAOx4 [place] Coma Scale Eye Opening: Spontaneous [place] Coma Scale Verbal: Oriented [place] Coma Scale Motor: Obeys Commands [place] Coma Scale Total: 15 Speech: Normal Motor strength normal: LUE, RUE, LLE, RLE Sensory: Normal - Psychological Associated symptoms: Normal affect, Normal mood - Skin Skin Temperature: Warm Skin Moisture: Dry Skin Color: Normal Course - Vital Signs Vital signs: Temp Pulse Resp BP Pulse Ox 12 111/67 98 11/15/18 20:36 11/15/18 20:36 11/15/18 20:36 - Laboratory Result Diagrams: 11/15/18 18:16 11/15/18 18:16 Laboratory results interpreted by me: 11/15/18 11/15/18 11/15/18 18:16 18:16 19:24 WBC 16.3 H RBC 3.23 L Hgb 9.5 L Hct 28.5 L RDW 14.5 H Plt Count 467 H Absolute Neutrophils 11.3 H Sodium 136.5 L BUN 29 H Creatinine 1.71 H Est GFR ( Amer) 36 L Est GFR (Non-Af Amer) 30 L Urine Protein 100 H Urine Blood SMALL H Ur Leukocyte Esterase LARGE H - Diagnostic Test Radiology reviewed: Reports reviewed - EKG Interpretation by Me EKG shows normal: Sinus rhythm Rate: Normal - 82 Rhythm: NSR When compared to previous EKG there are: No significant change Additional EKG results interpreted by me: 11/15/18 22:48 No STEMI. - Consults Dr Marshal Heck Time consulted: 22:35 Consulted provider: will see as inpatient - Transfer of Care Notes: 11/15/18 22:37 Patient will be admitted to the hospital by Dr. Marshal Heck the hospitalist information officer for further management. Critical Care Note - Critical Care Note Total time excluding time spent on procedures (mins): 50 Discharge - Discharge Clinical Impression: ARIAN (acute kidney injury), Dehydration UTI (urinary tract infection) Qualifiers: Urinary tract infection type: acute cystitis Hematuria presence: without hematuria Qualified Code(s): N30.00 - Acute cystitis without hematuria Hypotension Qualifiers: Hypotension type: unspecified hypotension type Qualified Code(s): I95.9 - Hypotension, unspecified Sepsis Qualifiers: Sepsis type: sepsis due to unspecified organism Qualified Code(s): A41.9 - Sepsis, unspecified organism Condition: Stable Disposition: ADMITTED INPATIENT Admitting Provider: Hospitalist Unit Admitted: [facility]
[2018-11-15 18:49] LABS: ALANINE AMINOTRANSFERASE 22 U/L (9-52); ALBUMIN 3.9 g/dL (3.5-5.0); ALKALINE PHOSPHATASE 123 U/L (38-126); ANION GAP 11 (5-19); ASPARTATE AMINO TRANSFERASE 25 U/L (14-36); BILIRUBIN,DIRECT 0.3 mg/dL (0.0-0.4); BILIRUBIN,TOTAL 0.5 mg/dL (0.2-1.3); BLOOD UREA NITROGEN 29 mg/dL (7-20); CARBON DIOXIDE 27 mmol/L (22-30); CHLORIDE 99 mmol/L (98-107); CREATINE KINASE 53 U/L (30-135); GLUCOSE 103 mg/dL (75-110); POTASSIUM 4.7 mmol/L (3.6-5.0); SODIUM 136.5 mmol/L (137-145); TOTAL PROTEIN 7.1 g/dL (6.3-8.2)
[2018-11-15 19:04] LABS: CREATINE KINASE MB 1.03 ng/mL (<4.55); TROPONIN I < 0.012 ng/mL
--- NOTE | 2018-11-15 19:30 | EKG REPORT ---
SEVERITY:- NORMAL ECG - SINUS RHYTHM : Confirmed by: Joaquín Riley MD 15-Nov-2018 19:30:00
--- NOTE | 2018-11-15 19:34 | RADIOLOGY REPORT (SQ) ---
EXAM DESCRIPTION: CT HEAD WITHOUT COMPLETED DATE/TIME: 11/15/2018 7:07 pm REASON FOR STUDY: weakness COMPARISON: 09/10/2018 TECHNIQUE: Axial images acquired through the brain without intravenous contrast. Images reviewed wi th bone, brain and subdural windows. Additional sagittal and coronal reconstructions were generated. Images stored on PACS. All CT scanners at this facility use dose modulation, iterative reconstruction, and/or weight based d osing when appropriate to reduce radiation dose to as low as reasonably achievable (ALARA). [facility]: Dose Right [facility]: CareDose [facility]: Dose Right [facility]: Teradose 4D [facility]: Smart VitaPortal RADIATION DOSE: CT Rad equipment meets quality standard of care and radiation dose reduction techniq ues were employed. CTDIvol: 53.2 mGy. DLP: 937 mGy-cm. mGy. LIMITATIONS: None. FINDINGS: VENTRICLES: Normal size and contour. CEREBRUM: No masses. No hemorrhage. No midline shift. No evidence for acute infarction. Normal gra y/white matter differentiation. No areas of low density in the white matter. CEREBELLUM: No masses. No hemorrhage. No alteration of density. No evidence for acute infarction. EXTRAAXIAL SPACES: No fluid collections. No masses. ORBITS AND GLOBE: No intra- or extraconal masses. Normal contour of globe without masses. CALVARIUM: No fracture. PARANASAL SINUSES: No fluid or mucosal thickening. SOFT TISSUES: No mass or hematoma. OTHER: No other significant finding. IMPRESSION: NORMAL BRAIN CT WITHOUT CONTRAST. EVIDENCE OF ACUTE STROKE: NO. COMMENT: Quality ID # [id number]: Final reports with documentation of one or more dose reduction techniques (e.g., Automated exposure control, adjustment of the mA and/or kV according to patient size, use of iterative reconstruction technique) TECHNICAL DOCUMENTATION: JOB ID: [id number] [employer]- All Rights Reserved Reading location - IP/workstation name: [email or web address]
[2018-11-15 19:49] LABS: APPEARANCE,URINE CLOUDY; BILIRUBIN,URINE NEGATIVE (NEGATIVE); COLOR,URINE AMBER; GLUCOSE, URINE NEGATIVE (NEGATIVE); KETONES,URINE NEGATIVE (NEGATIVE); LEUKOCYTE ESTERASE,URINE LARGE (NEGATIVE); NITRITE,URINE NEGATIVE (NEGATIVE); PROTEIN,URINE 100 mg/dL (NEGATIVE); UROBILINOGEN,URINE NEGATIVE mg/dL (<2.0)
--- NOTE | 2018-11-15 20:03 | RADIOLOGY REPORT (SQ) ---
XR CHEST 1 VIEW HISTORY: Weakness. COMPARISON: None. FINDINGS: The heart size is normal. The lungs are clear. No pleural effusion or pneumothorax is seen. No acute bony findings. IMPRESSION: No evidence of acute cardiopulmonary disease.
[2018-11-15] MEDS ORDERED: CEFTRIAXONE 2 GM/D5W RTU 2 GM/50 ML RTUPB IV ONE (20:23)
[2018-11-15] MEDS ORDERED: NORMAL SALINE 1000 ML 1,000 ML IV ONE ×2 (20:24)
[2018-11-15] MEDS ORDERED: MAGNESIUM HYDROXIDE SUSP 30 ML UDCUP PO PRN (22:22)
[2018-11-15] MEDS ORDERED: IPRATROPIUM/ALBUTEROL 0.5-2.5 MG/3 ML AMPUL NEB PRN (22:22)
[2018-11-15] MEDS ORDERED: MAG HYDROX/AL HYDROX/SIMETH SUSP 30 ML UDCUP PO PRN (22:22)
[2018-11-15] MEDS ORDERED: NORMAL SALINE 1000 ML 1,000 ML IV PRN (22:30)
[2018-11-15 22:37] LABS: ABSOLUTE RETICS # 0.051 10^6/uL (0.028-0.122); RETICULOCYTE COUNT (AUTO) 1.57 % (0.66-2.85)
[2018-11-15 23:00] LABS: IRON(TIBC) 13.3 ug/dL (37-170)
--- NOTE | 2018-11-15 23:07 | RADIOLOGY REPORT (SQ) ---
CT ABDOMEN PELVIS WITHOUT IV CONTRAST HISTORY: Right lower quadrant pain. COMPARISON: None. TECHNIQUE: CT scan of the abdomen and pelvis without IV contrast. This exam was performed according to our departmental dose-optimization program, which includes automated exposure control, adjustment of the mA and/or kV according to patient size and/or use of iterative reconstruction technique. FINDINGS: Scattered atelectasis at the lung bases. No pleural or pericardial effusions. There is a small hiatal hernia. The liver, gallbladder, spleen, pancreas, adrenal glands, and kidneys are normal. No hydronephrosis or obstructing urinary stones. There has been a prior hysterectomy. No small bowel obstruction. The appendix is not well visualized; however there are no inflammatory changes in the right lower quadrant. There is no evidence of diverticulitis. No intraperitoneal free fluid or free air is identified. There are mild degenerative changes of the spine. The aorta is normal caliber and contains atherosclerotic calcifications. IMPRESSION: No acute abdominal or pelvic pathology.
[2018-11-16 00:09] LABS: FOLATE > 20.00 ng/mL (>2.76)
[2018-11-16] MEDS ORDERED: IRON SUCROSE COMPLEX INJ/PF 100 MG/5 ML SDV IV ONE ×2 (04:42→05:00)
--- NOTE | 2018-11-16 05:06 | PDOC H&P ---
History of Present Illness Admission Date/PCP: 11/15/18 22:37 Patient complains of: Generalized weakness History of Present Illness: PARESH FRANCISCO is a 68 year old female who is an extraordinarily poor historian whose history by record is limited but includes chronic back pain prompting placement of spinal stimulator 3 months ago which was followed by profound lower extremity weakness prompting transfer to [facility] for workup. Patient is unable to give a diagnosis or treatment for her weakness which persists primarily of the lower extremity with deficits requiring wheelchair. She states the spinal stimulator was removed but they could not find a the caus e. Patient is admitted with 48 hours of profound generalized weakness. In the emergency department she is found to have constipation, pyuria with urinary tract infection and acute renal failure. She started on empiric antibiotics and referred to the hospitalist for admission. Patient denies viral illness, diarrhea, fever, chest pain, shortness of breath or recent antibiotic use. Records are requested from [facility] but pending Past Medical History Cardiac Medical History: Denies: Coronary Artery Disease, Myocardial Infarction, Hypertension Pulmonary Medical History: Denies: Asthma, Bronchitis, Chronic Obstructive Pulmonary Disease (COPD), Pneumonia Neurological Medical History: Reports: Other - As per history of present illness Denies: Seizures Musculoskeltal Medical History: Reports: Other - Chronic back pain Denies: Arthritis Skin Medical History: Reports: None Psychiatric Medical History: Reports: None Traumatic Medical History: Reports: None Hematology: Denies: Anemia Infectious Medical History: Reports: None Past Surgical History Past Surgical History: Reports: Appendectomy, Hysterectomy, Orthopedic Surgery - L knee, Other - Spinal stimulator September 2018 with subsequent removal Social History Information Source: Patient Lives with: Family Smoking Status: Former Smoker Frequency of Alcohol Use: None Drugs: None - Advance Directive Resuscitation Status: Full Code Family History Family History: Hypertension Parental Family History Reviewed: Yes Children Family History Reviewed: Yes Sibling(s) Family History Reviewed.: Yes Medication/Allergy Home Medications: Clonazepam [Klonopin 1 mg Tablet] 1 mg PO BID 10/02/15 Escitalopram Oxalate [Lexapro] 20 mg PO DAILY 10/02/15 Anastrozole [Arimidex 1 mg Tablet] 1 mg PO DAILY 08/10/18 Fa[place]skin-3 Fatty Acids/Fish Oil [Fish Oil 1,000 Mg Capsule] 1 each PO DAILY 11/15/18 Pregabalin [Lyrica 100 Mg Capsule] 100 mg PO TID 11/15/18 Cochiti's Wort 300 mg PO DAILY 11/15/18 Turmeric Root Extract [Turmeric] 500 mg PO DAILY 11/15/18 Allergies/Adverse Reactions: No Known Allergies Allergy (Verified 08/10/18 07:42) Review of Systems Constitutional: ABSENT: chills, fever(s), headache(s), weight gain, weight loss Eyes: ABSENT: visual disturbances Ears: ABSENT: hearing changes Cardiovascular: ABSENT: chest pain, dyspnea on exertion, edema, orthropnea, pal pitations Respiratory: ABSENT: cough, hemoptysis Gastrointestinal: ABSENT: abdominal pain, constipation, diarrhea, hematemesis, hematochezia, nausea, vomiting Genitourinary: ABSENT: dysuria, hematuria Musculoskeletal: ABSENT: joint swelling Integumentary: ABSENT: rash, wounds Neurological: ABSENT: abnormal gait, abnormal speech, confusion, dizziness, focal weakness, syncope Psychiatric: ABSENT: anxiety, depression, homidical ideation, suicidal ideation Endocrine: ABSENT: cold intolerance, heat intolerance, polydipsia, polyuria Hematologic/Lymphatic: ABSENT: easy bleeding, easy bruising Physical Exam Vital Signs: Temp Pulse Resp BP Pulse Ox 97.9 F 12 104/51 L 97 11/16/18 03:08 11/16/18 03:09 11/16/18 03:09 11/16/18 03:09 Intake & Output 11/14/18 11/15/18 11/16/18 11:59 11:59 11:59 Weight 84.2 kg General appearance: PRESENT: cooperative, disheveled, mild distress Head exam: PRESENT: atraumatic, normocephalic Eye exam: PRESENT: conjunctiva pink, EOMI, PERRLA. ABSENT: scleral icterus Ear exam: PRESENT: normal external ear exam Mouth exam: PRESENT: moist, tongue midline Neck exam: ABSENT: carotid bruit, JVD, lymphadenopathy, thyromegaly Respiratory exam: PRESENT: clear to auscultation sujey. ABSENT: rales, rhonchi, wheezes Cardiovascular exam: PRESENT: RRR. ABSENT: diastolic murmur, rubs, systolic murmur Pulses: PRESENT: normal dorsalis pedis pul Vascular exam: PRESENT: normal capillary refill GI/Abdominal exam: PRESENT: hypoactive bowel sounds, normal bowel sounds, soft. ABSENT: distended, guarding, mass, organolmegaly, rebound, tenderness Rectal exam: PRESENT: deferred Extremities exam: PRESENT: pedal edema, tenderness, +2 edema Neurological exam: PRESENT: alert, awake, oriented to person, oriented to place, oriented to time, oriented to situation, CN II-XII grossly intact. ABSENT: motor sensory deficit Psychiatric exam: PRESENT: appropriate affect, normal mood, unusual affect. ABSENT: homicidal ideation, suicidal ideation Skin exam: PRESENT: dry, intact, warm. ABSENT: cyanosis, rash Results Laboratory Results: 11/15/18 18:16 11/15/18 18:16 11/15/18 11/15/18 11/15/18 18:16 18:16 18:16 WBC 16.3 H RBC 3.23 L Hgb 9.5 L Hct 28.5 L MCV 88 MCH 29.5 MCHC 33.5 RDW 14.5 H Plt Count 467 H Seg Neutrophils % 68.9 Lymphocytes % 21.0 Monocytes % 8.3 Eosinophils % 1.0 Basophils % 0.8 Absolute Neutrophils 11.3 H Absolute Lymphocytes 3.4 Absolute Monocytes 1.4 Absolute Eosinophils 0.2 Absolute Basophils 0.1 Retic Count (auto) Absolute Retic Sodium 136.5 L Potassium 4.7 Chloride 99 Carbon Dioxide 27 Anion Gap 11 BUN 29 H Creatinine 1.71 H Est GFR ( Amer) 36 L Est GFR (Non-Af Amer) 30 L Glucose 103 Lactic Acid Calcium 10.0 Magnesium 1.7 Iron 13.3 L TIBC 267 % Saturation 5 Ferritin 254.00 Total Bilirubin 0.5 AST 25 ALT 22 Alkaline Phosphatase 123 Total Protein 7.1 Albumin 3.9 Vitamin B12 823.0 Folate > 20.00 Urine Color Urine Appearance Urine pH Ur Specific [place] Urine Protein Urine Glucose (UA) Urine Ketones Urine Blood Urine Nitrite Ur Leukocyte Esterase Urine WBC (Auto) Urine RBC (Auto) 11/15/18 11/15/18 11/15/18 18:16 19:24 23:07 WBC RBC Hgb Hct MCV MCH MCHC RDW Plt Count Seg Neutrophils % Lymphocytes % Monocytes % Eosinophils % Basophils % Absolute Neutrophils Absolute Lymphocytes Absolute Monocytes Absolute Eosinophils Absolute Basophils Retic Count (auto) 1.57 Absolute Retic 0.051 Sodium Potassium Chloride Carbon Dioxide Anion Gap BUN Creatinine Est GFR ( Amer) Est GFR (Non-Af Amer) Glucose Lactic Acid 1.4 Calcium Magnesium Iron TIBC % Saturation Ferritin Total Bilirubin AST ALT Alkaline Phosphatase Total Protein Albumin Vitamin B12 Folate Urine Color ANA Urine Appearance CLOUDY Urine pH 9.0 Ur Specific [place] 1.010 Urine Protein 100 H Urine Glucose (UA) NEGATIVE Urine Ketones NEGATIVE Urine Blood SMALL H Urine Nitrite NEGATIVE Ur Leukocyte Esterase LARGE H Urine WBC (Auto) >182 Urine RBC (Auto) 5 11/15/18 11/15/18 18:16 18:16 Creatine Kinase 53 CK-MB (CK-2) 1.03 Troponin I < 0.012 Impressions: Chest X-Ray 11/15/18 18:34 IMPRESSION: No evidence of acute cardiopulmonary disease. Head CT 11/15/18 18:34 IMPRESSION: NORMAL BRAIN CT WITHOUT CONTRAST. EVIDENCE OF ACUTE STROKE: NO. Abdomen/Pelvis CT 11/15/18 20:32 IMPRESSION: No acute abdominal or pelvic pathology. Assessment & Plan - Diagnosis (1) UTI (urinary tract infection) Qualifiers: Urinary tract infection type: acute cystitis Hematuria presence: without hematuria Qualified Code(s): N30.00 - Acute cystitis without hematuria Is this a current diagnosis for this admission?: Yes Plan: CT negative for obstruction or stone, empiric antibiotics, IV fluid challenge, follow-up blood urine culture and CBC (2) Sepsis Qualifiers: Sepsis type: sepsis due to unspecified organism Qualified Code(s): A41.9 - Sepsis, unspecified organism Is this a current diagnosis for this admission?: Yes Plan: Secondary to #1, IV fluid challenge, pressor as needed (3) ARIAN (acute kidney injury) Is this a current diagnosis for this admission?: Yes Plan: Secondary to sepsis with urinary tract infection, no evidence for obstruction. IV fluid challenge, avoid nephrotoxic meds and doses follow-up chemistry. (4) Weakness Is this a current diagnosis for this admission?: Yes Plan: Subacute times 3 months. Poor historian, follow-up medical records from [facility] - Time Time Spent: 50 to 70 Minutes - Inpatient Certification Medical Necessity: Need Close Monitoring Due to Risk of Patient Decompensation
[2018-11-16 06:13] LABS: ABSOLUTE EOSINOPHILS # (AUTO) 0.1 10^3/uL (0.0-0.6); ABSOLUTE LYMPHOCYTES (AUTO) 2.5 10^3/uL (0.5-4.7); ABSOLUTE MONOCYTES (AUTO) 0.9 10^3/uL (0.1-1.4); ABSOLUTE NEUT (AUTO) 7.4 10^3/uL (1.7-8.2); BASOPHILS % (AUTO) 0.4 % (0-2); EOSINOPHILS % (AUTO) 1.1 % (0-6); HEMATOCRIT 26.4 % (36.0-47.0); MEAN CORPUSCULAR HEMOGLOBIN 29.8 pg (27.0-33.4); MEAN CORPUSCULAR VOLUME 88 fl (80-97); MONOCYTES % (AUTO) 8.4 % (3-13); PLATELET COUNT 402 10^3/uL (150-450); RED BLOOD COUNT 3.01 10^6/uL (3.72-5.28); RED CELL DISTRIBUTION WIDTH 14.2 % (11.5-14.0); SEGMENTED NEUTROPHILS % (AUTO) 67.1 % (42-78); TOTAL CELLS COUNTED % (AUTO) 100 %; WHITE BLOOD COUNT 11.1 10^3/uL (4.0-10.5)
[2018-11-16 06:40] LABS: ANION GAP 7 (5-19); BLOOD UREA NITROGEN 25 mg/dL (7-20); CALCIUM 9.4 mg/dL (8.4-10.2); CARBON DIOXIDE 26 mmol/L (22-30); CHLORIDE 106 mmol/L (98-107); GLUCOSE 87 mg/dL (75-110); SODIUM 139.1 mmol/L (137-145)
[2018-11-16] MEDS: HEPARIN SOD (PORCINE) 5,000 UNIT/ML 1 ML SYRINGE SUBCUT SCH ×3 (09:18→21:23)
[2018-11-16] MEDS: ESCITALOPRAM OXALATE 10 MG TABLET PO SCH (09:48)
[2018-11-16] MEDS: OMEGA-3 ACID ETHYL ESTERS 1 GM CAPSULE PO SCH (09:48)
[2018-11-16] MEDS: MAGNESIUM OXIDE 400 MG TABLET PO SCH ×2 (09:48→17:14)
[2018-11-16] MEDS: PREGABALIN 100 MG CAPSULE PO SCH ×3 (09:48→17:13)
[2018-11-16] MEDS: CLONAZEPAM 1 MG TABLET PO SCH ×2 (09:48→17:13)
[2018-11-16] MEDS: ANASTROZOLE 1 MG TABLET PO SCH (09:49)
[2018-11-16] MEDS ORDERED: TURMERIC ROOT EXTRACT 500 MG PO SCH (10:00)
[2018-11-16] MEDS ORDERED: ST JOHN S WORT PO SCH (10:00)
[2018-11-16] MEDS ORDERED: (PENDING PHARMACY ID) (Omega-3 Fatty Acids/Fish Oil [Fish Oil 1,000 Mg Capsule] 1 EACH) PO SCH (10:00)
--- NOTE | 2018-11-16 14:14 | PDOC PROGRESS REPORT ---
Subjective Progress Note for:: 11/16/18 Subjective:: 68 year old female who is an extraordinarily poor historian whose history by record is limited but includes chronic back pain prompting placement of spinal stimulator 3 months ago which was followed by profound lower extremity weakness prompting transfer to [facility] for workup. Patient is unable to give a diagnosis or treatment for her weakness which persists primarily of the lower extremity with deficits requiring wheelchair. She states the spinal stimulator was removed but they could not find a the cause. Patient is admitted with 48 hours of profound generalized weakness. In the emergency department she is found to have constipation, pyuria with urinary tract infection and acute renal failure. She started on empiric antibiotics and referred to the hospitalist for admission. Patient denies viral illness, diarrhea, fever, chest pain, shortness of breath or recent antibiotic use. 11/16/2018 no acute events so far. Nurse requested for Matthews's catheter. Patient hemoglobin is 9.0 it was around 13.7 in September this year. Stool for ocult blood was requested. Patient comfortably in the bed denies any complaints. Reason For Visit: UTI,SEPSIS,ARF ANEMIA Physical Exam Vital Signs: Temp Pulse Resp BP Pulse Ox 98.0 F 82 15 113/87 H 97 11/16/18 07:52 11/16/18 14:04 11/16/18 14:04 11/16/18 07:52 11/16/18 14:04 Intake & Output 11/15/18 11/16/18 11/17/18 06:59 06:59 06:59 Intake Total 2049 Balance 2049 Weight 84.2 kg General appearance: PRESENT: no acute distress Head exam: PRESENT: atraumatic Eye exam: PRESENT: PERRLA Neck exam: ABSENT: carotid bruit, JVD, lymphadenopathy, thyromegaly Respiratory exam: PRESENT: clear to auscultation sujey. ABSENT: rales, rhonchi, wheezes Cardiovascular exam: PRESENT: RRR. ABSENT: diastolic murmur, rubs, systolic murmur GI/Abdominal exam: PRESENT: normal bowel sounds, soft. ABSENT: distended, gua rding, mass, organolmegaly, rebound, tenderness Extremities exam: PRESENT: full ROM. ABSENT: calf tenderness, clubbing, pedal edema Neurological exam: PRESENT: alert, awake, oriented to person, oriented to place, oriented to time Psychiatric exam: PRESENT: appropriate affect, normal mood. ABSENT: homicidal ideation, suicidal ideation Results Laboratory Results: 11/16/18 06:04 11/16/18 06:04 11/15/18 11/15/18 11/15/18 18:16 18:16 18:16 WBC 16.3 H RBC 3.23 L Hgb 9.5 L Hct 28.5 L MCV 88 MCH 29.5 MCHC 33.5 RDW 14.5 H Plt Count 467 H Seg Neutrophils % 68.9 Lymphocytes % 21.0 Monocytes % 8.3 Eosinophils % 1.0 Basophils % 0.8 Absolute Neutrophils 11.3 H Absolute Lymphocytes 3.4 Absolute Monocytes 1.4 Absolute Eosinophils 0.2 Absolute Basophils 0.1 Retic Count (auto) Absolute Retic Sodium 136.5 L Potassium 4.7 Chloride 99 Carbon Dioxide 27 Anion Gap 11 BUN 29 H Creatinine 1.71 H Est GFR ( Amer) 36 L Est GFR (Non-Af Amer) 30 L Glucose 103 Lactic Acid Calcium 10.0 Magnesium 1.7 Iron 13.3 L TIBC 267 % Saturation 5 Ferritin 254.00 Total Bilirubin 0.5 AST 25 ALT 22 Alkaline Phosphatase 123 Total Protein 7.1 Albumin 3.9 Vitamin B12 823.0 Folate > 20.00 Urine Color Urine Appearance Urine pH Ur Specific [place] Urine Protein Urine Glucose (UA) Urine Ketones Urine Blood Urine Nitrite Ur Leukocyte Esterase Urine WBC (Auto) Urine RBC (Auto) 11/15/18 11/15/18 11/15/18 18:16 19:24 23:07 WBC RBC Hgb Hct MCV MCH MCHC RDW Plt Count Seg Neutrophils % Lymphocytes % Monocytes % Eosinophils % Basophils % Absolute Neutrophils Absolute Lymphocytes Absolute Monocytes Absolute Eosinophils Absolute Basophils Retic Count (auto) 1.57 Absolute Retic 0.051 Sodium Potassium Chloride Carbon Dioxide Anion Gap BUN Creatinine Est GFR ( Amer) Est GFR (Non-Af Amer) Glucose Lactic Acid 1.4 Calcium Magnesium Iron TIBC % Saturation Ferritin Total Bilirubin AST ALT Alkaline Phosphatase Total Protein Albumin Vitamin B12 Folate Urine Color ANA Urine Appearance CLOUDY Urine pH 9.0 Ur Specific [place] 1.010 Urine Protein 100 H Urine Glucose (UA) NEGATIVE Urine Ketones NEGATIVE Urine Blood SMALL H Urine Nitrite NEGATIVE Ur Leukocyte Esterase LARGE H Urine WBC (Auto) >182 Urine RBC (Auto) 5 11/16/18 11/16/18 06:04 06:04 WBC 11.1 H RBC 3.01 L Hgb 9.0 L Hct 26.4 L MCV 88 MCH 29.8 MCHC 34.0 RDW 14.2 H Plt Count 402 Seg Neutrophils % 67.1 Lymphocytes % 23.0 Monocytes % 8.4 Eosinophils % 1.1 Basophils % 0.4 Absolute Neutrophils 7.4 Absolute Lymphocytes 2.5 Absolute Monocytes 0.9 Absolute Eosinophils 0.1 Absolute Basophils 0.0 Retic Count (auto) Absolute Retic Sodium 139.1 Potassium 4.0 Chloride 106 Carbon Dioxide 26 Anion Gap 7 BUN 25 H Creatinine 1.12 Est GFR ( Amer) 58 L Est GFR (Non-Af Amer) 48 L Glucose 87 Lactic Acid Calcium 9.4 Magnesium Iron TIBC % Saturation Ferritin Total Bilirubin AST ALT Alkaline Phosphatase Total Protein Albumin Vitamin B12 Folate Urine Color Urine Appearance Urine pH Ur Specific [place] Urine Protein Urine Glucose (UA) Urine Ketones Urine Blood Urine Nitrite Ur Leukocyte Esterase Urine WBC (Auto) Urine RBC (Auto) 11/15/18 11/15/18 18:16 18:16 Creatine Kinase 53 CK-MB (CK-2) 1.03 Troponin I < 0.012 Impressions: Chest X-Ray 11/15/18 18:34 IMPRESSION: No evidence of acute cardiopulmonary disease. Head CT 11/15/18 18:34 IMPRESSION: NORMAL BRAIN CT WITHOUT CONTRAST. EVIDENCE OF ACUTE STROKE: NO. Abdomen/Pelvis CT 11/15/18 20:32 IMPRESSION: No acute abdominal or pelvic pathology. Assessment & Plan - Diagnosis (1) UTI (urinary tract infection) Qualifiers: Urinary tract infection type: acute cystitis Hematuria presence: without hematuria Qualified Code(s): N30.00 - Acute cystitis without hematuria Is this a current diagnosis for this admission?: Yes Plan: 11 22 urine culture came back positive for gram-negative rods. Presently on IV Rocephin 1 g daily waiting for the sensitivity report. (2) Sepsis Qualifiers: Sepsis type: sepsis due to unspecified organism Qualified Code(s): A41.9 - Sepsis, unspecified organism Is this a current diagnosis for this admission?: Yes Plan: 11/16/2018-sepsis most likely secondary to UTI. She also admitted with acute kidney injury. WBC is elevated at the time of admission. Lactic acid on admission is 1.4. Plan is to continue IV Rocephin 1 g daily. (3) ARIAN (acute kidney injury) Is this a current diagnosis for this admission?: Yes Plan: 11/16/2018-patient's baseline creatinine is around 0.8, on admission is it is 1.71 improved to 1.12 with IV fluids. Acute kidney injury most likely secondary to prerenal causes. (4) Anemia Is this a current diagnosis for this admission?: Yes Plan: 11/16/2018-patient hemoglobin on admission is 9.5 and dropped to 9.0 ,baseline hemoglobin is around 13.5. Cause for acute blood loss anemia is unknown at this time. Stool for occult blood was requested. Plan is to repeat the CBC tomorrow. - Time Time Spent with patient: 15-24 minutes Medications reviewed and adjusted accordingly: Yes Anticipated discharge: Home
[2018-11-16] MEDS: NORMAL SALINE 1000 ML 1,000 ML IV PRN (19:44)
[2018-11-16] MEDS: ACETAMINOPHEN 325 MG TABLET PO PRN (19:50)
[2018-11-16] MEDS: CEFTRIAXONE 1 GM/D5W RTU 1 GM/50 ML RTUPB IV SCH (21:23)
[2018-11-17] MEDS: ACETAMINOPHEN 325 MG TABLET PO PRN ×2 (04:42→21:14)
[2018-11-17] MEDS: HEPARIN SOD (PORCINE) 5,000 UNIT/ML 1 ML SYRINGE SUBCUT SCH ×3 (05:10→21:12)
[2018-11-17 05:36] LABS: ABSOLUTE EOSINOPHILS # (AUTO) 0.3 10^3/uL (0.0-0.6); ABSOLUTE MONOCYTES (AUTO) 0.9 10^3/uL (0.1-1.4); ABSOLUTE NEUT (AUTO) 4.1 10^3/uL (1.7-8.2); BASOPHILS % (AUTO) 0.6 % (0-2); EOSINOPHILS % (AUTO) 3.4 % (0-6); HEMATOCRIT 26.6 % (36.0-47.0); LYMPHOCYTES % (AUTO) 35.9 % (13-45); MEAN CORPUSCULAR HEMOGLOBIN 29.6 pg (27.0-33.4); MEAN CORPUSCULAR VOLUME 87 fl (80-97); MONOCYTES % (AUTO) 10.6 % (3-13); PLATELET COUNT 443 10^3/uL (150-450); RED BLOOD COUNT 3.05 10^6/uL (3.72-5.28); RED CELL DISTRIBUTION WIDTH 14.6 % (11.5-14.0); SEGMENTED NEUTROPHILS % (AUTO) 49.5 % (42-78); TOTAL CELLS COUNTED % (AUTO) 100 %; WHITE BLOOD COUNT 8.3 10^3/uL (4.0-10.5)
[2018-11-17 05:51] LABS: ALANINE AMINOTRANSFERASE 24 U/L (9-52); ALBUMIN 3.2 g/dL (3.5-5.0); ALKALINE PHOSPHATASE 100 U/L (38-126); ANION GAP 6 (5-19); ASPARTATE AMINO TRANSFERASE 21 U/L (14-36); BILIRUBIN,DIRECT 0.2 mg/dL (0.0-0.4); BILIRUBIN,TOTAL 0.2 mg/dL (0.2-1.3); BLOOD UREA NITROGEN 19 mg/dL (7-20); CALCIUM 9.4 mg/dL (8.4-10.2); CARBON DIOXIDE 25 mmol/L (22-30); CHLORIDE 108 mmol/L (98-107); GLUCOSE 93 mg/dL (75-110); POTASSIUM 4.1 mmol/L (3.6-5.0)
[2018-11-17] MEDS: CLONAZEPAM 1 MG TABLET PO SCH ×2 (09:06→17:17)
[2018-11-17] MEDS: ESCITALOPRAM OXALATE 10 MG TABLET PO SCH (09:07)
[2018-11-17] MEDS: MAGNESIUM OXIDE 400 MG TABLET PO SCH ×2 (09:07→17:17)
[2018-11-17] MEDS: ANASTROZOLE 1 MG TABLET PO SCH (09:07)
[2018-11-17] MEDS: OMEGA-3 ACID ETHYL ESTERS 1 GM CAPSULE PO SCH (09:08)
[2018-11-17] MEDS: PREGABALIN 100 MG CAPSULE PO SCH ×3 (09:08→17:17)
[2018-11-17] MEDS: NORMAL SALINE 1000 ML 1,000 ML IV PRN (10:59)
--- NOTE | 2018-11-17 15:17 | PDOC PROGRESS REPORT ---
Subjective Progress Note for:: 11/17/18 Subjective:: No adverse events overnight. No new complaints. Vital signs been stable. No fevers. No dysuria. Appetite has been normal. She has not had any trouble sleeping. Reason For Visit: UTI,SEPSIS,ARF ANEMIA Physical Exam Vital Signs: Temp Pulse Resp BP Pulse Ox 97.5 F 66 16 122/63 97 11/17/18 12:00 11/17/18 12:00 11/17/18 12:00 11/17/18 12:00 11/17/18 12:00 Intake & Output 11/16/18 11/17/18 11/18/18 06:59 06:59 06:59 Intake Total 2049 1667 1237 Output Total 1750 200 Balance 2049 1037 Weight 84.2 kg 85.4 kg General appearance: PRESENT: no acute distress, cooperative, disheveled, obese Respiratory exam: PRESENT: clear to auscultation sujey, symmetrical, unlabored. ABSENT: accessory muscle use, crackles, prolonged expiratory phas, rhonchi, tachypnea, wheezes Cardiovascular exam: PRESENT: RRR, +S1, +S2. ABSENT: diastolic murmur, systolic murmur Pulses: PRESENT: normal carotid pulses Vascular exam: PRESENT: normal capillary refill GI/Abdominal exam: PRESENT: normal bowel sounds, soft. ABSENT: distended, guarding, rebound, tenderness Extremities exam: ABSENT: clubbing, pedal edema Musculoskeletal exam: PRESENT: normal inspection. ABSENT: deformity Neurological exam: PRESENT: awake, oriented to person, oriented to place, oriented to situation Psychiatric exam: PRESENT: flat affect Skin exam: PRESENT: dry, warm Results Laboratory Results: 11/17/18 05:07 11/17/18 05:07 11/17/18 11/17/18 05:07 05:07 WBC 8.3 RBC 3.05 L Hgb 9.0 L Hct 26.6 L MCV 87 MCH 29.6 MCHC 34.0 RDW 14.6 H Plt Count 443 Seg Neutrophils % 49.5 Lymphocytes % 35.9 Monocytes % 10.6 Eosinophils % 3.4 Basophils % 0.6 Absolute Neutrophils 4.1 Absolute Lymphocytes 3.0 Absolute Monocytes 0.9 Absolute Eosinophils 0.3 Absolute Basophils 0.0 Sodium 139.0 Potassium 4.1 Chloride 108 H Carbon Dioxide 25 Anion Gap 6 BUN 19 Creatinine 0.81 Est GFR ( Amer) > 60 Est GFR (Non-Af Amer) > 60 Glucose 93 Calcium 9.4 Magnesium 1.6 Total Bilirubin 0.2 AST 21 ALT 24 Alkaline Phosphatase 100 Total Protein 6.0 L Albumin 3.2 L 11/15/18 19:24 Clean Catch Midstream Urine Culture - Final Klebsiella Oxytoca 11/15/18 11/15/18 18:16 18:16 Creatine Kinase 53 CK-MB (CK-2) 1.03 Troponin I < 0.012 Impressions: Chest X-Ray 11/15/18 18:34 IMPRESSION: No evidence of acute cardiopulmonary disease. Head CT 11/15/18 18:34 IMPRESSION: NORMAL BRAIN CT WITHOUT CONTRAST. EVIDENCE OF ACUTE STROKE: NO. Abdomen/Pelvis CT 11/15/18 20:32 IMPRESSION: No acute abdominal or pelvic pathology. Assessment & Plan - Diagnosis (1) UTI (urinary tract infection) Qualifiers: Urinary tract infection type: acute cystitis Hematuria presence: without hematuria Qualified Code(s): N30.00 - Acute cystitis without hematuria Is this a current diagnosis for this admission?: Yes Plan: She has grown out a Klebsiella oxytocin that is resistant to ampicillin and cefazolin. We will likely switch over to Ceftin and she can complete a course of that as an outpatient. (2) ARIAN (acute kidney injury) Is this a current diagnosis for this admission?: Yes Plan: Resolved (3) Anemia Qualifiers: Anemia type: iron deficiency Iron deficiency anemia type: inadequate dietary iron intake Qualified Code(s): D50.8 - Other iron deficiency anemias Is this a current diagnosis for this admission?: Yes Plan: We will start ferrous sulfate twice a day (4) Weakness Is this a current diagnosis for this admission?: Yes Plan: She wants to go to [place] for rehab. Discharge planning is involved. - Time Time Spent with patient: 15-24 minutes
[2018-11-17] MEDS: CEFTRIAXONE 1 GM/D5W RTU 1 GM/50 ML RTUPB IV SCH (21:11)
[2018-11-18] MEDS: NORMAL SALINE 1000 ML 1,000 ML IV PRN ×2 (01:57→13:46)
[2018-11-18] MEDS: HEPARIN SOD (PORCINE) 5,000 UNIT/ML 1 ML SYRINGE SUBCUT SCH ×3 (05:16→21:30)
[2018-11-18] MEDS: CLONAZEPAM 1 MG TABLET PO SCH ×2 (09:38→17:45)
[2018-11-18] MEDS: OMEGA-3 ACID ETHYL ESTERS 1 GM CAPSULE PO SCH (09:38)
[2018-11-18] MEDS: PREGABALIN 100 MG CAPSULE PO SCH ×3 (09:39→17:44)
[2018-11-18] MEDS: ESCITALOPRAM OXALATE 10 MG TABLET PO SCH (09:39)
[2018-11-18] MEDS: MAGNESIUM OXIDE 400 MG TABLET PO SCH ×2 (09:39→17:45)
[2018-11-18] MEDS: ANASTROZOLE 1 MG TABLET PO SCH (09:40)
[2018-11-18] MEDS: ACETAMINOPHEN 325 MG TABLET PO PRN (16:02)
--- NOTE | 2018-11-18 18:24 | PDOC PROGRESS REPORT ---
Subjective Progress Note for:: 11/18/18 Subjective:: No adverse events overnight. No new complaints. Vital signs been stable. No fevers. No dysuria. Appetite has been normal. She has not had any trouble sleeping. Still waiting for word regarding placement, because her first choice does not accept her insurance. Reason For Visit: UTI,SEPSIS,ARF ANEMIA Physical Exam Vital Signs: Temp Pulse Resp BP Pulse Ox 97.7 F 68 16 127/58 H 98 11/18/18 16:10 11/18/18 16:10 11/18/18 16:10 11/18/18 16:10 11/18/18 16:10 Intake & Output 11/17/18 11/18/18 11/19/18 06:59 06:59 06:59 Intake Total 1667 2669 886 Output Total 1750 1500 450 Balance -83 1169 436 Weight 85.4 kg 84.1 kg General appearance: PRESENT: no acute distress, cooperative, disheveled, obese Respiratory exam: PRESENT: clear to auscultation sujey, symmetrical, unlabored. ABSENT: accessory muscle use, crackles, prolonged expiratory phas, rhonchi, tachypnea, wheezes Cardiovascular exam: PRESENT: RRR, +S1, +S2. ABSENT: diastolic murmur, systolic murmur Pulses: PRESENT: normal carotid pulses Vascular exam: PRESENT: normal capillary refill GI/Abdominal exam: PRESENT: normal bowel sounds, soft. ABSENT: distended, guarding, rebound, tenderness Extremities exam: ABSENT: clubbing, pedal edema Musculoskeletal exam: PRESENT: normal inspection. ABSENT: deformity Neurological exam: PRESENT: awake, oriented to person, oriented to place, oriented to situation Psychiatric exam: PRESENT: flat affect Skin exam: PRESENT: dry, warm Results Laboratory Results: 11/17/18 05:07 11/17/18 05:07 11/15/18 11/15/18 18:16 18:16 Creatine Kinase 53 CK-MB (CK-2) 1.03 Troponin I < 0.012 Impressions: Chest X-Ray 11/15/18 18:34 IMPRESSION: No evidence of acute cardiopulmonary disease. Head CT 11/15/18 18:34 IMPRESSION: NORMAL BRAIN CT WITHOUT CONTRAST. EVIDENCE OF ACUTE STROKE: NO. Abdomen/Pelvis CT 11/15/18 20:32 IMPRESSION: No acute abdominal or pelvic pathology. Assessment & Plan - Diagnosis (1) UTI (urinary tract infection) Qualifiers: Urinary tract infection type: acute cystitis Hematuria presence: without hematuria Qualified Code(s): N30.00 - Acute cystitis without hematuria Is this a current diagnosis for this admission?: Yes Plan: She has grown out a Klebsiella oxytocin that is resistant to ampicillin and cefazolin. We will switch over to Ceftin and she can complete a course of that as an outpatient. (2) ARIAN (acute kidney injury) Is this a current diagnosis for this admission?: Yes Plan: Resolved (3) Anemia Qualifiers: Anemia type: iron deficiency Iron deficiency anemia type: inadequate dietary iron intake Qualified Code(s): D50.8 - Other iron deficiency anemias Is this a current diagnosis for this admission?: Yes Plan: We started ferrous sulfate twice a day (4) Weakness Is this a current diagnosis for this admission?: Yes Plan: She wants to go to [facility] for rehab but they do not accept her insurance so alternatives are being considered. Discharge planning is involved. - Time Time Spent with patient: 25-34 minutes
[2018-11-19] MEDS: NORMAL SALINE 1000 ML 1,000 ML IV PRN ×2 (02:15→15:01)
[2018-11-19] MEDS: HEPARIN SOD (PORCINE) 5,000 UNIT/ML 1 ML SYRINGE SUBCUT SCH ×2 (05:06→14:54)
[2018-11-19] MEDS: ESCITALOPRAM OXALATE 10 MG TABLET PO SCH (09:19)
[2018-11-19] MEDS: PREGABALIN 100 MG CAPSULE PO SCH ×3 (09:19→17:51)
[2018-11-19] MEDS: OMEGA-3 ACID ETHYL ESTERS 1 GM CAPSULE PO SCH (09:19)
[2018-11-19] MEDS: CEFUROXIME 500 MG TABLET PO SCH ×2 (09:19→17:52)
[2018-11-19] MEDS: ANASTROZOLE 1 MG TABLET PO SCH (09:19)
[2018-11-19] MEDS: FERROUS SULFATE 325 MG TABLET PO SCH ×2 (09:20→17:52)
[2018-11-19] MEDS: MAGNESIUM OXIDE 400 MG TABLET PO SCH ×2 (09:20→17:52)
[2018-11-19] MEDS: CLONAZEPAM 1 MG TABLET PO SCH ×2 (09:20→17:49)
[2018-11-19] MEDS: ACETAMINOPHEN 325 MG TABLET PO PRN (11:54)
[2018-11-19 16:32] VITALS: BP 113/87
--- NOTE | 2018-11-19 18:29 | PDOC DISCHARGE SUMMARY ---
General - Admit/Disc Date/PCP Admission Date/Primary Care Provider: 11/15/18 22:37 Discharge Date: 11/19/18 - Discharge Diagnosis (1) UTI (urinary tract infection) Is this a current diagnosis for this admission?: Yes Summary: She responded well to treatment and were going to switch her over to p.o. Ceftin to complete a course of treatment. (2) ARIAN (acute kidney injury) Is this a current diagnosis for this admission?: Yes Summary: Resolved with IV fluid administration (3) Anemia Is this a current diagnosis for this admission?: Yes Summary: Chronic dietary iron deficiency, she will take an iron supplement at home (4) Weakness Is this a current diagnosis for this admission?: Yes Summary: This is a chronic long-standing issue, she is in a get physical therapy at home. She was able to stand up independently with the use of a walker in the room. - Additional Information Resuscitation Status: Full Code Discharge Diet: As Tolerated, Cardiac Discharge Activity: Balance Activity w/Rest, Supervised Activity Prescriptions: Cefuroxime Axetil [Ceftin 500 mg Tablet] 500 mg PO BID #14 tablet Home Medications: Clonazepam [Klonopin 1 mg Tablet] 1 mg PO BID 10/02/15 Escitalopram Oxalate [Lexapro] 20 mg PO DAILY 10/02/15 Anastrozole [Arimidex 1 mg Tablet] 1 mg PO DAILY 08/10/18 Gleason-3 Fatty Acids/Fish Oil [Fish Oil 1,000 mg Capsule] 1 each PO DAILY 11/15/18 Pregabalin [Lyrica 100 mg Capsule] 100 mg PO TID 11/15/18 [place]'s Wort 300 mg PO DAILY 11/15/18 Turmeric Root Extract [Turmeric] 500 mg PO DAILY 11/15/18 Cefuroxime Axetil [Ceftin 500 mg Tablet] 500 mg PO BID #14 tablet 11/19/18 Ferrous Sulfate [Feosol 325 mg Tablet] 325 mg PO BIDPCBS tablet 11/19/18 History of Present Illness History of Present Illness: PARESH FRANCISCO is a 68 year old female who is an extraordinarily poor historian whose history by record is limited but includes chronic back pain prompting placement of spinal stimulator 3 months ago which was followed by profound lower extremity weakness prompting transfer to [facility] for workup. Patient is unable to give a diagnosis or treatment for her weakness which persists primarily of the lower extremity with deficits requiring wheelchair. She states the spinal stimulator was removed but they could not find a the cause. Patient is admitted with 48 hours of profound generalized weakness. In the emergency department she is found to have constipation, pyuria with urinary tract infection and acute renal failure. She started on empiric antibiotics and referred to the hospitalist for admission. Patient denies viral illness, diarrhea, fever, chest pain, shortness of breath or recent antibiotic use. Hospital Course Hospital Course: She was treated for a urinary tract infection was switched over to oral antibiotics to reflect coverage for the organism that showed up in her urine. She will complete a course of Ceftin at home. She was seen and evaluated by physical therapy and we try to get her into a rehab facility, but the initial place she wanted to go did not accept her insurance, and we tried to send her records to a local facility, but her family changed her mind and said they want her to go to a place in [place]. When the family found out that we would not know anything until after the weekend, they decided to take her home with home health. She was able to stand up with use of walker independently in the room. Her labs and examination were reassuring she was discharged home in good condition. Physical Exam Vital Signs: Temp Pulse Resp BP Pulse Ox 98.1 F 65 20 113/87 H 98 11/19/18 16:06 11/19/18 16:06 11/19/18 16:06 11/19/18 16:06 11/19/18 16:06 Intake & Output 11/18/18 11/19/18 11/20/18 06:59 06:59 06:59 Intake Total 2669 1786 1180 Output Total 1500 1650 400 Balance 1169 136 780 Weight 84.1 kg 87.1 kg General appearance: PRESENT: no acute distress, cooperative, disheveled, obese Respiratory exam: PRESENT: clear to auscultation sujey, symmetrical, unlabored. ABSENT: accessory muscle use, crackles, prolonged expiratory phas, rhonchi, tachypnea, wheezes Cardiovascular exam: PRESENT: RRR, +S1, +S2. ABSENT: diastolic murmur, systolic murmur Pulses: PRESENT: normal carotid pulses Vascular exam: PRESENT: normal capillary refill GI/Abdominal exam: PRESENT: normal bowel sounds, soft. ABSENT: distended, guarding, rebound, tenderness Extremities exam: ABSENT: clubbing, pedal edema Musculoskeletal exam: PRESENT: normal inspection. ABSENT: deformity Neurological exam: PRESENT: awake, oriented to person, oriented to place, or iented to situation Psychiatric exam: PRESENT: flat affect Skin exam: PRESENT: dry, warm Results Laboratory Results: 11/17/18 05:07 11/17/18 05:07 11/15/18 11/15/18 18:16 18:16 Creatine Kinase 53 CK-MB (CK-2) 1.03 Troponin I < 0.012 Impressions: Chest X-Ray 11/15/18 18:34 IMPRESSION: No evidence of acute cardiopulmonary disease. Head CT 11/15/18 18:34 IMPRESSION: NORMAL BRAIN CT WITHOUT CONTRAST. EVIDENCE OF ACUTE STROKE: NO. Abdomen/Pelvis CT 11/15/18 20:32 IMPRESSION: No acute abdominal or pelvic pathology. Qualifiers - * PATIENT BEING DISCHARGED WITH ANY OF THE FOLLOWING DIAGNOSIS: No
== END 2018-11-19 19:51 | disposition home or self-care (01) | DRG 872 ==
LOC: ER 17:03 → EH 22:37 → 3W 11-16 07:02
PROVIDERS: ADMIT Internal Medicine; ATTEND Internal Medicine
DX: A41.9 Sepsis, unspecified organism (principal); N30.00 Acute cystitis without hematuria; N17.9 Acute kidney failure, unspecified; E86.0 Dehydration; B96.89 Other specified bacterial agents as the cause of diseases classified elsewhere; D50.8 Other iron deficiency anemias; G89.29 Other chronic pain; Z16.11 Resistance to penicillins; M54.9 Dorsalgia, unspecified; Z90.49 Acquired absence of other specified parts of digestive tract; Z90.710 Acquired absence of both cervix and uterus; Z87.891 Personal history of nicotine dependence; Z82.49 Family history of ischemic heart disease and other diseases of the circulatory system
CPT/HCPCS: 36415; 51701; 70450; 71045; 74176; 80048; 80053; 81001; 82550; 82553; 82607; 82728; 82746; 83540; 83550; 83605; 83735; 84484; 85025; 85045; 87040; 87086; 87088; 87186; 93005; 93010; 96361; 96365; 99291; J0696; J1644; J3490; J7030

== ENCOUNTER 2018-12-17 11:09 | Emergency (ER) | payer BC, MEDICARE ==
[2018-12-17 12:24] LABS: AMORPHOUS SEDIMENT,URINE TRACE /HPF; APPEARANCE,URINE TURBID; BILIRUBIN,URINE NEGATIVE (NEGATIVE); COLOR,URINE AMBER; GLUCOSE, URINE NEGATIVE (NEGATIVE); KETONES,URINE NEGATIVE (NEGATIVE); LEUKOCYTE ESTERASE,URINE LARGE (NEGATIVE); NITRITE,URINE POSITIVE (NEGATIVE); PROTEIN,URINE 100 mg/dL (NEGATIVE); URINE SPECIFIC GRAVITY 1.014; UROBILINOGEN,URINE NEGATIVE mg/dL (<2.0)
[2018-12-17] MEDS ORDERED: CEFTRIAXONE INJ 1000 MG VIAL IM ONE (12:39)
[2018-12-17] MEDS ORDERED: LIDOCAINE 1% INJ (10 MG/ML) 10 ML MDV INJ ONE (12:44)
--- NOTE | 2018-12-17 13:00 | ER Document Report ---
ED General - General Chief Complaint: Urinary Problem Stated Complaint: WEAKNESS Time Seen by Provider: 12/17/18 11:55 Notes: Patient thinks she has a urinary tract infection. She has had previous infections with similar symptoms. Her symptoms are primarily about the urine she is making smells badly and is darker in color than usual for the past week. Denies any significant burning or stinging. Patient is felt nauseated but has not vomited any. Patient has some some form of paralysis of her lower extremities which she says is attributed to insertion of stimulator in her back by [facility]. Patient had a mammogram done yesterday and she is concerned about the results. She has a history of breast cancer diagnosed stage I, 3 years ago. She had surgery with a lumpectomy at that time and she currently takes a pill every day. TRAVEL OUTSIDE OF THE [place] IN LAST 30 DAYS: No - Related Data Allergies/Adverse Reactions: No Known Allergies Allergy (Verified 08/10/18 07:42) Past Medical History - Social History Smoking Status: Former Smoker - Stop smoking in August,. Family History: Reviewed & Not Pertinent, Hypertension Patient has suicidal ideation: No Patient has homicidal ideation: No Psychiatric Medical History: Reports: Hx Anxiety, Hx Depression Past Surgical History: Reports: Hx Appendectomy, Hx Breast Surgery - lumpectomy, Hx Hysterectomy, Hx Neurologic Surgery - spinal stimulator 08/10/2018, Hx Orthopedic Surgery - L knee, Other - Spinal stimulator September 2018 with subsequent removal - Immunizations Hx Diphtheria, Pertussis, Tetanus Vaccination: Yes Review of Systems - Review of Systems Notes: CONSTITUTIONAL : Denies fever. CARDIOVASCULAR: Denies chest pain. RESPIRATORY: Denies cough, chest congestion, or shortness of breath. GASTROINTESTINAL: Denies abdominal pain or nausea, vomiting, or diarrhea. GENITOURINARY: See HPI. Patient has some abrasions and bruises of the toes of both feet which she attributes to having to use a wheelchair to get around because of her paralysis mentioned in the history of present illness. Physical Exam - Vital signs Vitals: Temp Pulse Resp BP Pulse Ox 97.7 F 85 16 79/58 L 96 12/17/18 11:33 12/17/18 11:33 12/17/18 11:33 12/17/18 11:33 12/17/18 11:33 Notes: PHYSICAL EXAMINATION: GENERAL: Well-appearing, in no acute distress. Blood pressure recorded at triage was 79/58, but subsequently normal. Patient is not in shock and I question the accuracy of that blood pressure recording. HEAD: Atraumatic, normocephalic. NECK: Normal range of motion, supple. LUNGS: Breath sounds clear and equal bilaterally. HEART: Regular rate and rhythm without murmurs. ABDOMEN: Soft, nontender. No guarding or rebound. No masses. BACK: No tenderness throughout entire back. EXTREMITIES: Normal range of motion without pain. Toes both feet with abrasions. NEUROLOGICAL: Normal speech, gait not tested--wheel chair confined. Says has little feeling both legs, minimal movement of both legs. Awake, alert, and oriented x3. PSYCH: Normal mood, normal affect. SKIN: Warm, dry, no rashes. Course - Re-evaluation Re-evalutation: 12/17/18 18:43 Urine looks like an infection. We will give her an injection of Rocephin IM and then put her on Macrobid pending culture. Was able to get a copy of the patient's mammogram results from yesterday. It shows a lumpectomy site with some apparent scar tissue around it. There is no evidence of any cancerous lesions. She does have some cysts in both breasts. She is been advised to get another mammogram in 1 year. Patient made aware of all of these findings. - Vital Signs Vital signs: Temp Pulse Resp BP Pulse Ox 97.3 F 87 18 104/86 H 100 12/17/18 13:38 12/17/18 13:38 12/17/18 13:38 12/17/18 13:38 12/17/18 13:38 - Laboratory Laboratory results interpreted by me: 12/17/18 11:30 Urine Protein 100 H Urine Nitrite POSITIVE H Ur Leukocyte Esterase LARGE H Discharge - Discharge Clinical Impression: UTI (urinary tract infection) Condition: Stable Disposition: HOME, SELF-CARE Additional Instructions: URINARY TRACT INFECTION: Your evaluation indicates that you have a urinary tract infection. This is due to germs growing in the bladder. This is a common problem. This infection usually responds quickly to antibiotics. Your antibiotic should be taken exactly as prescribed. Drink plenty of fluids -- three to four quarts a day. Occasionally, a bladder anesthetic will be prescribed to help stop the feeling of urgency until the antibiotic has a chance to clear the infection. This may cause your urine to be dark orange. Certain urine infections require a culture. If the doctor obtained a culture, the results will be back in two days. You should call to see if a change in treatment is needed. A repeat urinalysis after you finish treatment is often recommended. The physician will let you know if further testing is required. Call the doctor if you develop fever, chills, flank pain, inability to urinate, or blood in the urine. ANTIBIOTIC THERAPY: You have been given an antibiotic prescription. It's important that you take all the medication, unless instructed otherwise by your physician. Failure to complete the entire course can result in relapse of your condition. Common side effects of antibiotics include nausea, intestinal cramping, or diarrhea. Women may develop vaginal yeast infections, and babies can get yeast (thrush) in the mouth following the use of antibiotics. Contact your physician if you develop significant side effects from this medication. Allergy to this antibiotic can result in hives, wheezing, faintness, or itching. If symptoms of allergy occur, stop the medication and call the doctor. Rocephin You have been given an injection of an antibiotic called Rocephin (ceftriaxone). Sometimes the injection must be combined with antibiotic pills. For some infections, such as an uncomplicated ear infection, Rocephin provides all the antibiotic that's needed. The antibiotic will be in your body for about two days. For serious infections, we usually repeat doses of Rocephin daily. Side effects are very unusual following a shot. Women may develop vaginal yeast infections, and babies can get yeast (thrush) in the mouth following the use of antibiotics. Contact your physician if you have symptoms with this medication. Allergy to this antibiotic can result in hives, wheezing, faintness, or itching. If symptoms of allergy occur, call the doctor at once. NITROFURANTOIN (MACRODANTIN, MACROBID): You have received a prescription for nitrofurantoin (Macrodantin). This antibiotic is used for urinary tract infections. Women who are or nursing should notify the physician before taking this medicine. If you have ever had a problem caused by this medication in the past, be sure the physician is aware of it. Common side effects of this medicine include nausea, vomiting, or decreased appetite. Notify your physician if these side effects become severe. Immediately stop this medicine and call the physician if you develop cough, shortness of breath, chest pain, weakness, jaundice (yellow color of the skin and whites of the eyes), or a skin rash. FOLLOW-UP CARE: If you have been referred to a physician for follow-up care, call the physicians office for an appointment as you were instructed or within the next two days. If you experience worsening or a significant change in your symptoms, notify the physician immediately or return to the Emergency Department at any time for re-evaluation. Drink lots of fluids. Go to the bathroom and empty her bladder frequently, every couple of hours, and return if you have vomiting and cannot keep her medicines down or running a high fever. Prescriptions: Nitrofurantoin/Nitrofuran Mac [Macrobid 100 mg Capsule] 1 tab PO BID #20 capsule
[2018-12-17 14:12] VITALS: BP 104/86
== END 2018-12-17 21:00 | disposition home or self-care (01) ==
LOC: ER 11:09
DX: N39.0 Urinary tract infection, site not specified (principal); R53.1 Weakness; Z90.710 Acquired absence of both cervix and uterus
CPT/HCPCS: 99283; 96372; 51701; 87086; 87088; 81001; 87186; J0696

== ENCOUNTER 2019-01-20 14:06 | Inpatient (IN) | payer BC, MEDICARE ==
--- NOTE | 2019-01-20 14:46 | ER Document Report ---
ED General - General Chief Complaint: Wound Infection Stated Complaint: PRESSURE SORES Time Seen by Provider: 01/20/19 14:21 Notes: This is a 68-year-old female brought in by EMS for evaluation of sacral decubitus ulcer and pressure sore on her left heel. Patient states that she was paralyzed in August after a botched procedure. States that she can feel her legs however she cannot move them. Has been bedridden since that time. Has sig nificant sores in her sacrum and there is a sore on the left heel that has been seen by home health. Home health felt that there is a significant odor to it today so was sent here for further evaluation. Patient states that she has felt chills however no fever. Denies any significant pain at this time. Denies any other major complaints. TRAVEL OUTSIDE OF THE [place] IN LAST 30 DAYS: No - HPI Quality of pain: [place]y - Related Data Allergies/Adverse Reactions: No Known Allergies Allergy (Verified 01/20/19 14:39) Past Medical History - General Information source: Patient - Social History Smoking Status: Former Smoker Frequency of alcohol use: None Drug Abuse: None Lives with: Alone Family History: Hypertension Patient has suicidal ideation: No Patient has homicidal ideation: No - Medical History Medical History: Other - Has medical history significant for breast cancer, back pain, paralysis - Past Medical History Cardiac Medical History: Denies: Hx Coronary Artery Disease, Hx Heart Attack, Hx Hypertension Pulmonary Medical History: Denies: Hx Asthma, Hx Bronchitis, Hx COPD, Hx Pneumonia Neurological Medical History: Denies: Hx Cerebrovascular Accident, Hx Seizures Renal/ Medical History: Denies: Hx Peritoneal Dialysis Musculoskeletal Medical History: Denies Hx Arthritis Psychiatric Medical History: Reports: Hx Anxiety, Hx Depression Past Surgical History: Reports: Hx Appendectomy, Hx Breast Surgery - lumpectomy, Hx Hysterectomy, Hx Neurologic Surgery - spinal stimulator 08/10/2018, Hx Orthopedic Surgery - L knee, Other - Spinal stimulator September 2018 with subsequent removal - Immunizations Hx Diphtheria, Pertussis, Tetanus Vaccination: Yes Review of Systems - Review of Systems Notes: Constitutional: denies: Chills, Diaphoresis, Fever, Malaise, Weakness EENT: denies: Eye discharge, Blurred vision, Tearing, Double vision, Nose congestion, Nose discharge, Throat swelling, Mouth pain Cardiovascular: denies: Palpitations, Heart racing, Orthopnea, Dyspnea, Chest pain Respiratory: denies: Cough, Hurts to breathe, Wheezing, Shortness of breath Gastrointestinal: denies: Abdominal pain, Diarrhea, Nausea, Vomiting, Black stools, bright red blood in stool Genitourinary: denies: Burning, Dysuria, Discharge, Frequency, Flank pain, Hematuria Musculoskeletal: denies: Joint pain, Joint swelling, Muscle pain, Muscle stiffness, back pain and complaining of sore on the left heel. Hematologic/Lymphatic: denies: Anemia, Easy bleeding, Easy bruising, Blood clots Neurological/Psychological: denies: Confusion, Dementia, Depression, Loss of consciousness Skin: No lesions, no masses,, no abscesses. Complaining of sacral decubitus ulcer and pressure sore on the left heel with abrasions on the toes of the left foot. Physical Exam - Vital signs Vitals: Temp Pulse Resp BP Pulse Ox 97.3 F 80 17 105/47 L 99 01/20/19 14:12 01/20/19 14:12 01/20/19 14:12 01/20/19 14:12 01/20/19 14:12 Interpretation: Normal - General General appearance: Appears well, Alert - HEENT Head: Normocephalic, Atraumatic Eyes: Normal Pupils: PERRL - Respiratory Respiratory status: No respiratory distress Chest status: Nontender Breath sounds: Normal Chest palpation: Normal - Cardiovascular Rhythm: Regular Heart sounds: Normal auscultation Murmur: No - Abdominal Inspection: Normal Distension: No distension Bowel sounds: Normal Tenderness: Nontender Organomegaly: No organomegaly - Back Back: Normal, Nontender - Extremities General upper extremity: Normal inspection, Nontender, Normal color, Normal ROM, Normal temperature General lower extremity: Normal inspection, Nontender, Normal color, Other - The lower extremities demonstrate sequelae of some sort of paralysis. There is a significant pressure ulcer on the left heel which is malodorous and there multiple abrasions on the toes of the left foot on the anterior surface. No: Normal weight bearing, Sigrid's sign - Neurological Neuro grossly intact: Yes Cognition: Normal Orientation: AAOx4 Max Coma Scale Eye Opening: Spontaneous Max Coma Scale Verbal: Oriented Max Coma Scale Motor: Obeys Commands Max Coma Scale Total: 15 Sensory: Normal - Psychological Associated symptoms: Normal affect, Normal mood - Skin Skin Temperature: Warm Skin Moisture: Dry Skin Color: Other - She has a 3 cm round decubitus sore on the left heel with large amount of tissue and is significantly malodorous. It is warm to the touch on the heel with some surrounding cellulitic appearance. There is a large sacral decubitus ulcer stage II. Mildly warm to the touch. Course - Re-evaluation Re-evalutation: 01/20/19 17:44 At this time I do not believe the patient is going to make it as an outpatient. She needs more immediate surgical evaluation but this can be done as an inpatient. I am going to go ahead and start her on some antibiotics as I think this is an early infection due to the odor and the cellulitis appearing on the left heel. Patient is comfortable with this plan. Dr. Rogers excepting 01/20/19 17:45 Laboratory 01/20/19 01/20/19 01/20/19 14:30 14:30 14:30 WBC 8.0 RBC 4.16 Hgb 11.0 L Hct 33.6 L MCV 81 MCH 26.4 L MCHC 32.7 RDW 15.7 H Plt Count 373 Seg Neutrophils % 58.8 Lymphocytes % 31.7 Monocytes % 6.9 Eosinophils % 1.6 Basophils % 1.0 Absolute Neutrophils 4.7 Absolute Lymphocytes 2.6 Absolute Monocytes 0.6 Absolute Eosinophils 0.1 Absolute Basophils 0.1 ESR 46 H Sodium 141.9 Potassium 3.9 Chloride 106 Carbon Dioxide 26 Anion Gap 10 BUN 29 H Creatinine 1.21 Est GFR ( [facility]) 53 L Est GFR (Non-Af [facility]) 44 L Glucose 84 Lactic Acid 1.1 Calcium 11.1 H Total Bilirubin 0.3 Direct Bilirubin 0.3 Neonat Total Bilirubin Not Reportable Neonat Direct Bilirubin Not Reportable Neonat Indirect Bili Not Reportable AST 21 ALT 14 Alkaline Phosphatase 86 C-Reactive Protein 12.0 H Total Protein 7.4 Albumin 4.0 Urine Color Urine Appearance Urine pH Ur Specific [place] Urine Protein Urine Glucose (UA) Urine Ketones Urine Blood Urine Nitrite Urine Bilirubin Urine Urobilinogen Ur Leukocyte Esterase Urine WBC (Auto) Urine RBC (Auto) Amorphous Sediment Auto Urine Mucus (Auto) Urine Ascorbic Acid 01/20/19 15:36 WBC RBC Hgb Hct MCV MCH MCHC RDW Plt Count Seg Neutrophils % Lymphocytes % Monocytes % Eosinophils % Basophils % Absolute Neutrophils Absolute Lymphocytes Absolute Monocytes Absolute Eosinophils Absolute Basophils ESR Sodium Potassium Chloride Carbon Dioxide Anion Gap BUN Creatinine Est GFR ( Amer) Est GFR (Non-Af [facility]) Glucose Lactic Acid Calcium Total Bilirubin Direct Bilirubin Neonat Total Bilirubin Neonat Direct Bilirubin Neonat Indirect Bili AST ALT Alkaline Phosphatase C-Reactive Protein Total Protein Albumin Urine Color YELLOW Urine Appearance SLIGHTLY-CLOUDY Urine pH 7.0 Ur Specific [place] 1.013 Urine Protein NEGATIVE Urine Glucose (UA) NEGATIVE Urine Ketones NEGATIVE Urine Blood NEGATIVE Urine Nitrite NEGATIVE Urine Bilirubin NEGATIVE Urine Urobilinogen NEGATIVE Ur Leukocyte Esterase TRACE H Urine WBC (Auto) 10 Urine RBC (Auto) 0 Amorphous Sediment Auto TRACE Urine Mucus (Auto) RARE Urine Ascorbic Acid NEGATIVE Foot X-Ray 01/20/19 14:45 IMPRESSION: Likely Achilles tendinopathy. No acute abnormality. - Vital Signs Vital signs: Temp Pulse Resp BP Pulse Ox 97.3 F 80 17 105/47 L 99 01/20/19 14:12 01/20/19 14:12 01/20/19 14:12 01/20/19 14:12 01/20/19 14:12 - Laboratory Result Diagrams: 01/20/19 14:30 01/20/19 14:30 Laboratory results interpreted by me: 01/20/19 01/20/19 01/20/19 14:30 14:30 15:36 Hgb 11.0 L Hct 33.6 L MCH 26.4 L RDW 15.7 H ESR 46 H BUN 29 H Est GFR ( Amer) 53 L Est GFR (Non-Af Amer) 44 L Calcium 11.1 H C-Reactive Protein 12.0 H Ur Leukocyte Esterase TRACE H Discharge - Discharge Clinical Impression: Decubitus ulcer, stage 3 with infection Condition: Good Disposition: ADMITTED INPATIENT Admitting Provider: Storm (Hospitalist) Unit Admitted: Medical Floor
[2019-01-20 14:54] LABS: ABSOLUTE BASOPHILS # (AUTO) 0.1 10^3/uL (0.0-0.2); ABSOLUTE EOSINOPHILS # (AUTO) 0.1 10^3/uL (0.0-0.6); ABSOLUTE LYMPHOCYTES (AUTO) 2.6 10^3/uL (0.5-4.7); ABSOLUTE MONOCYTES (AUTO) 0.6 10^3/uL (0.1-1.4); ABSOLUTE NEUT (AUTO) 4.7 10^3/uL (1.7-8.2); EOSINOPHILS % (AUTO) 1.6 % (0-6); HEMATOCRIT 33.6 % (36.0-47.0); LYMPHOCYTES % (AUTO) 31.7 % (13-45); MEAN CORPUSCULAR HEMOGLOBIN 26.4 pg (27.0-33.4); MEAN CORPUSCULAR HGB CONC 32.7 g/dL (32.0-36.0); MEAN CORPUSCULAR VOLUME 81 fl (80-97); MONOCYTES % (AUTO) 6.9 % (3-13); PLATELET COUNT 373 10^3/uL (150-450); RED BLOOD COUNT 4.16 10^6/uL (3.72-5.28); RED CELL DISTRIBUTION WIDTH 15.7 % (11.5-14.0); SEGMENTED NEUTROPHILS % (AUTO) 58.8 % (42-78); TOTAL CELLS COUNTED % (AUTO) 100 %
[2019-01-20 15:07] LABS: ALANINE AMINOTRANSFERASE 14 U/L (9-52); ALKALINE PHOSPHATASE 86 U/L (38-126); ANION GAP 10 (5-19); ASPARTATE AMINO TRANSFERASE 21 U/L (14-36); BILIRUBIN,DIRECT 0.3 mg/dL (0.0-0.4); BILIRUBIN,TOTAL 0.3 mg/dL (0.2-1.3); BLOOD UREA NITROGEN 29 mg/dL (7-20); CALCIUM 11.1 mg/dL (8.4-10.2); CARBON DIOXIDE 26 mmol/L (22-30); CHLORIDE 106 mmol/L (98-107); GLUCOSE 84 mg/dL (75-110); POTASSIUM 3.9 mmol/L (3.6-5.0); SODIUM 141.9 mmol/L (137-145); TOTAL PROTEIN 7.4 g/dL (6.3-8.2)
--- NOTE | 2019-01-20 15:11 | RADIOLOGY REPORT (SQ) ---
EXAM DESCRIPTION: FOOT LEFT 2 VIEWS COMPLETED DATE/TIME: 01/20/2019 3:01 pm REASON FOR STUDY: heel sore COMPARISON: None. NUMBER OF VIEWS: Two views. TECHNIQUE: AP and lateral radiographic images acquired of the left foot. LIMITATIONS: None. FINDINGS: MINERALIZATION: Normal. BONES: No fracture. There is a prominent dorsal calcaneal spur. JOINTS: No effusions. SOFT TISSUES: No soft tissue swelling. No foreign body. OTHER: No other significant finding. IMPRESSION: Likely Achilles tendinopathy. No acute abnormality. TECHNICAL DOCUMENTATION: JOB ID: [id number]- All Rights Reserved Reading location - IP/workstation name: [email or web address]
[2019-01-20 15:35] LABS: ERYTHROCYTE SEDIMENTATION RATE 46 mm/hr (0-30)
[2019-01-20 16:19] LABS: AMORPHOUS SEDIMENT,URINE TRACE /HPF; APPEARANCE,URINE SLIGHTLY-CLOUDY; BILIRUBIN,URINE NEGATIVE (NEGATIVE); COLOR,URINE YELLOW; GLUCOSE, URINE NEGATIVE (NEGATIVE); KETONES,URINE NEGATIVE (NEGATIVE); LEUKOCYTE ESTERASE,URINE TRACE (NEGATIVE); NITRITE,URINE NEGATIVE (NEGATIVE); PROTEIN,URINE NEGATIVE (NEGATIVE); URINE SPECIFIC GRAVITY 1.013; UROBILINOGEN,URINE NEGATIVE mg/dL (<2.0)
[2019-01-20] MEDS ORDERED: PIPERACILLIN/TAZOBACTAM 3.375 GM VIAL IV ONE (17:44)
[2019-01-20] MEDS ORDERED: VANCOMYCIN HCL INJ 1000 MG VIAL IV ONE (17:44)
[2019-01-20] MEDS ORDERED: CLONAZEPAM 1 MG TABLET PO PRN (18:16)
[2019-01-20] MEDS ORDERED: ST JOHN S WORT PO SCH (18:30)
[2019-01-20] MEDS ORDERED: (PENDING PHARMACY ID) (Omega-3 Fatty Acids/Fish Oil [Fish Oil 1,000 Mg Capsule] 1 EACH) PO SCH (18:30)
[2019-01-20] MEDS ORDERED: PIPERACILLIN/TAZOBACTAM 3.375 GM VIAL IV SCH (18:30)
[2019-01-20] MEDS ORDERED: TURMERIC ROOT EXTRACT 500 MG PO SCH (18:30)
--- NOTE | 2019-01-20 18:41 | PDOC H&P ---
History of Present Illness Admission Date/PCP: 01/20/19 17:58 Patient complains of: Sacral wound on the right heel wound started 1 week ago History of Present Illness: PARESH FRANCISCO is a 68 year old female with history of spinal surgery in August last year as per the patient she became pathologic after the surgery and she had a spinal stimulator placed at that time and in September of this year spinal tumor letter was removed she is also given the history of breast cancer on DrBryan Waldron is her doctor, anxiety disorder, panic attacks came to the emergency room with complaints of development of sacral and right heel decubitus 1 week ago. Patient is complaining of right heel pain for the last 1 week and foul-smelling odor from the wound patient says she is able to only move from a bed to wheelchair and wheelchair to bed unable to walk. She had home health but despite their best efforts the sacral wounds and right hand wounds are getting worse decided to came to the emergency room for further evaluation and the patient is requesting to be placed in a rehab facility. Denies any fevers denies any nausea vomiting denies any constipation or diarrhea denies any problems with urination. Denies any anxiety depression. Past Medical History Cardiac Medical History: Denies: Coronary Artery Disease, Myocardial Infarction, Hypertension Pulmonary Medical History: Denies: Asthma, Bronchitis, Chronic Obstructive Pulmonary Disease (COPD), Pneumonia Neurological Medical History: Denies: Seizures Malignancy Medical History: Reports: Breast Cancer Musculoskeltal Medical History: Reports: Other - History of spinal problems status post spinal surgery in August 2018 Denies: Arthritis Psychiatric Medical History: Reports: Depression Hematology: Denies: Anemia Past Surgical History Past Surgical History: Reports: Appendectomy, Hysterectomy, Orthopedic Surgery - L knee, Other - Spinal stimulator September 2018 with subsequent removal Social History Information Source: Patient Lives with: Alone Smoking Status: Former Smoker Frequency of Alcohol Use: None Drugs: None - Advance Directive Resuscitation Status: Full Code Family History Family History: Hypertension Parental Family History Reviewed: Yes - Family history of hypertension Children Family History Reviewed: Yes Sibling(s) Family History Reviewed.: Yes Medication/Allergy Home Medications: Clonazepam [Klonopin 1 mg Tablet] 1 mg PO Q8HP PRN 10/02/15 Anastrozole [Arimidex 1 mg Tablet] 1 mg PO DAILY 08/10/18 [place]-3 Fatty Acids/Fish Oil [Fish Oil 1,000 mg Capsule] 1 each PO DAILY 11/15/18 Pregabalin [Lyrica 100 mg Capsule] 100 mg PO Q8 11/15/18 Radha's Wort 300 mg PO DAILY 11/15/18 Turmeric Root Extract [Turmeric] 500 mg PO DAILY 11/15/18 Ferrous Sulfate [Feosol 325 mg Tablet] 325 mg PO BIDPCBS tablet 11/19/18 Duloxetine HCl [Cymbalta 30 mg Capsule.dr] 30 mg PO DAILY 01/20/19 Tramadol HCl [Ultram 50 mg Tablet] 50 mg PO Q12HP PRN 01/20/19 Allergies/Adverse Reactions: No Known Allergies Allergy (Verified 01/20/19 14:39) Review of Systems Constitutional: PRESENT: fatigue, weakness. ABSENT: fever(s), headache(s) Eyes: ABSENT: visual disturbances Ears: ABSENT: hearing changes Nose, Mouth, and Throat: ABSENT: sore throat Cardiovascular: ABSENT: dyspnea on exertion, orthropnea, palpitations Respiratory: ABSENT: dyspnea, hemoptysis Gastrointestinal: ABSENT: constipation, diarrhea, melena, nausea Genitourinary: ABSENT: dysuria, hematuria Musculoskeletal: PRESENT: other - Patient is bedbound most of the time with the help she can move from the bed to wheelchair. Integumentary: PRESENT: other - Complaining of right heel wound with foul- smelling drainage and sacral wounds. Neurological: PRESENT: other - After the spinal surgery as per the patient she is bedbound most of the time. Physical Exam Vital Signs: Temp Pulse Resp BP Pulse Ox 97.3 F 80 17 105/47 L 99 01/20/19 14:12 01/20/19 14:12 01/20/19 14:12 01/20/19 14:12 01/20/19 14:12 Intake & Output 01/19/19 01/20/19 01/21/19 06:59 06:59 06:59 Weight 73.3 kg General appearance: PRESENT: no acute distress Head exam: PRESENT: atraumatic Eye exam: PRESENT: PERRLA Mouth exam: PRESENT: moist, tongue midline Neck exam: ABSENT: carotid bruit, JVD, lymphadenopathy, thyromegaly Respiratory exam: PRESENT: clear to auscultation sujey. ABSENT: rales, rhonchi, wheezes Cardiovascular exam: PRESENT: RRR. ABSENT: diastolic murmur, rubs, systolic murmur GI/Abdominal exam: PRESENT: normal bowel sounds, soft. ABSENT: distended, guarding, mass, organolmegaly, rebound, tenderness Rectal exam: PRESENT: deferred Extremities exam: PRESENT: other - Right foot wound is stage III with foul- smelling drainage. Musculoskeletal exam: PRESENT: other - She has a stage II sacral decubitus. Neurological exam: PRESENT: alert, awake, oriented to person, oriented to place, oriented to time, oriented to situation, CN II-XII grossly intact, other - Shunt is bedbound most of the time.. ABSENT: motor sensory deficit Skin exam: PRESENT: other - Sacral wound stage II. Results Laboratory Results: 01/20/19 14:30 01/20/19 14:30 01/20/19 01/20/19 01/20/19 14:30 14:30 14:30 WBC 8.0 RBC 4.16 Hgb 11.0 L Hct 33.6 L MCV 81 MCH 26.4 L MCHC 32.7 RDW 15.7 H Plt Count 373 Seg Neutrophils % 58.8 Lymphocytes % 31.7 Monocytes % 6.9 Eosinophils % 1.6 Basophils % 1.0 Absolute Neutrophils 4.7 Absolute Lymphocytes 2.6 Absolute Monocytes 0.6 Absolute Eosinophils 0.1 Absolute Basophils 0.1 Sodium 141.9 Potassium 3.9 Chloride 106 Carbon Dioxide 26 Anion Gap 10 BUN 29 H Creatinine 1.21 Est GFR ( Amer) 53 L Est GFR (Non-Af Amer) 44 L Glucose 84 Lactic Acid 1.1 Calcium 11.1 H Total Bilirubin 0.3 AST 21 ALT 14 Alkaline Phosphatase 86 C-Reactive Protein 12.0 H Total Protein 7.4 Albumin 4.0 Urine Color Urine Appearance Urine pH Ur Specific [place] Urine Protein Urine Glucose (UA) Urine Ketones Urine Blood Urine Nitrite Ur Leukocyte Esterase Urine WBC (Auto) Urine RBC (Auto) 01/20/19 15:36 WBC RBC Hgb Hct MCV MCH MCHC RDW Plt Count Seg Neutrophils % Lymphocytes % Monocytes % Eosinophils % Basophils % Absolute Neutrophils Absolute Lymphocytes Absolute Monocytes Absolute Eosinophils Absolute Basophils Sodium Potassium Chloride Carbon Dioxide Anion Gap BUN Creatinine Est GFR ( Amer) Est GFR (Non-Af Amer) Glucose Lactic Acid Calcium Total Bilirubin AST ALT Alkaline Phosphatase C-Reactive Protein Total Protein Albumin Urine Color YELLOW Urine Appearance SLIGHTLY-CLOUDY Urine pH 7.0 Ur Specific [place] 1.013 Urine Protein NEGATIVE Urine Glucose (UA) NEGATIVE Urine Ketones NEGATIVE Urine Blood NEGATIVE Urine Nitrite NEGATIVE Ur Leukocyte Esterase TRACE H Urine WBC (Auto) 10 Urine RBC (Auto) 0 Impressions: Foot X-Ray 01/20/19 14:45 IMPRESSION: Likely Achilles tendinopathy. No acute abnormality. Assessment and Plan - Diagnosis (1) Decubitus ulcer, stage 3 with infection Is this a current diagnosis for this admission?: Yes Plan: 01/20/2019 patient came in with right heel infected wound stage III. Decubitus ulcer because of the bedbound status. Plan to put her in med telemetry started on IV vancomycin and IV Zosyn started on IV fluids normal saline at 75 cc/h surg ical consult was requested MRI of the right heel was requested. GI prophylaxis was initiated because of the possibility of debridement not started on DVT prophylaxis. Order was placed to change the body patient every 2 hours. Physical therapy consult rehab consult was requested. Patient is expressing desire to go to his detention facility. Wound cultures blood cultures are done. Started on Percocet 2 tablets every 4 as needed for back pain. (2) Malignant neoplasm of right female breast Is this a current diagnosis for this admission?: No Plan: 01/20/2019-patient given the history of breast cancer Dr. Waldron is her oncologist consult was placed for Dr. Waldron. (3) Sacral decubitus ulcer, stage II Is this a current diagnosis for this admission?: Yes Plan: 01/20/2019 patient came in with stage II sacral decubitus not infected. Daily dressings are requested and body positioning every 2 hours requested. Air mattress is going to be requested. Dietary consult was requested for nutritional supplements. (4) ARIAN (acute kidney injury) Is this a current diagnosis for this admission?: Yes Plan: 01/20/2019-patient's admission creatinine is 1.21 in November creatinine is around 0.8. Baseline creatinine is around 0.8. AKA may be secondary to poor oral intake. Start on IV fluids normal saline at 75 cc/h. Plan to recheck labs tomorrow. - Time Time Spent with patient: 25-34 minutes Medications reviewed and adjusted accordingly: Yes Anticipated discharge: SNF - Inpatient Certification Based on my medical assessment, after consideration of the patient's comorbi dities, presenting symptoms, or acuity I expect that the services needed warrant INPATIENT care.: Yes I certify that my determination is in accordance with my understanding of Medicare's requirements for reasonable and necessary INPATIENT services [42 CFR 412.3e].: Yes
[2019-01-20] MEDS ORDERED: DULOXETINE HCL 30 MG CAPSULE.DR PO SCH (19:00)
[2019-01-20] MEDS ORDERED: FERROUS SULFATE 325 MG TABLET PO SCH (19:00)
[2019-01-20 19:28] LABS: INTERNATIONAL RATION (INR) 0.94
[2019-01-20 19:44] LABS: CREATINE KINASE MB 3.26 ng/mL (<4.55)
[2019-01-20 19:47] LABS: TROPONIN I < 0.012 ng/mL
--- NOTE | 2019-01-20 20:02 | PDOC CONSULTATION ---
Consultation Consult Date: 01/20/19 Provider Consulted: RIA RIVERA Consult reason:: sacral and left heel decubuti History of Present Illness Admission Date/PCP: 01/20/19 17:58 History of Present Illness: PARESH FRANCISCO is a 68 year old female with history of spinal surgery in August last year as per the patient she became paraplegic after having surgery for a spinal stimulator placed at that time and in September of this year. Came to the emergency room with complaints of development of sacral and right heel decubitus starting 1 week ago. Patient is complaining of right heel pain for the last 1 week and foul-smelling odor from the wound patient says she is able to only move from a bed to wheelchair and wheelchair to bed unable to walk. She had home health but despite their best efforts the sacral wounds and right hand wounds are getting worse decided to came to the emergency room for further evaluation and the patient is requesting to be placed in a rehab facility. Denies any fevers denies any nausea vomiting denies any constipation or diarrhea denies any problems with urination. Past Medical History Cardiac Medical History: Denies: Coronary Artery Disease, Myocardial Infarction, Hypertension Pulmonary Medical History: Denies: Asthma, Bronchitis, Chronic Obstructive Pulmonary Disease (COPD), Pneumonia Neurological Medical History: Denies: Seizures Malignancy Medical History: Reports: Breast Cancer Musculoskeltal Medical History: Reports: Other - History of spinal problems status post spinal surgery in August 2018 Denies: Arthritis Psychiatric Medical History: Reports: Depression Hematology: Denies: Anemia Past Surgical History Past Surgical History: Reports: Appendectomy, Hysterectomy, Orthopedic Surgery - L knee, Other - Spinal stimulator September 2018 with subsequent removal Social History Lives with: Alone Smoking Status: Former Smoker Frequency of Alcohol Use: None Drugs: None - Advance Directive Resuscitation Status: Full Code Family History Family History: Hypertension Parental Family History Reviewed: No Children Family History Reviewed: NA Sibling(s) Family History Reviewed.: NA Medication/Allergy Home Medications: Clonazepam [Klonopin 1 mg Tablet] 1 mg PO Q8HP PRN 10/02/15 Anastrozole [Arimidex 1 mg Tablet] 1 mg PO DAILY 08/10/18 [place]-3 Fatty Acids/Fish Oil [Fish Oil 1,000 mg Capsule] 1 each PO DAILY 11/15/18 Pregabalin [Lyrica 100 mg Capsule] 100 mg PO Q8 11/15/18 Radha's Wort 300 mg PO DAILY 11/15/18 Turmeric Root Extract [Turmeric] 500 mg PO DAILY 11/15/18 Ferrous Sulfate [Feosol 325 mg Tablet] 325 mg PO BIDPCBS tablet 11/19/18 Duloxetine HCl [Cymbalta 30 mg Capsule.dr] 30 mg PO DAILY 01/20/19 Tramadol HCl [Ultram 50 mg Tablet] 50 mg PO Q12HP PRN 01/20/19 Allergies/Adverse Reactions: No Known Allergies Allergy (Verified 01/20/19 14:39) Review of Systems Constitutional: ABSENT: chills, fever(s), headache(s), weight gain, weight loss Eyes: ABSENT: as per HPI, visual disturbances, other Ears: ABSENT: hearing changes Nose, Mouth, and Throat: ABSENT: as per HPI, headache(s), mouth pain, sore throat, vertigo, other Cardiovascular: ABSENT: as per HPI, chest pain, dyspnea on exertion, edema, orthropnea, palpitations, other Respiratory: ABSENT: as per HPI, cough, dyspnea, hemoptysis, sputum, other Gastrointestinal: ABSENT: as per HPI, abdominal pain, bloating, coffee ground emesis, constipation, diarrhea, dysphagia, heartburn, hematemesis, hematochezia, melena, nausea, vomiting, other Genitourinary: PRESENT: other - chronic uti's Musculoskeletal: PRESENT: deformity, muscle weakness Integumentary: PRESENT: erythema, lesions, wounds Neurological: PRESENT: weakness, other - lower extremity paralysis Psychiatric: PRESENT: depression Endocrine: ABSENT: cold intolerance, heat intolerance, polydipsia, polyuria Allergic/Immunologic: ABSENT: as per HPI, seasonal rhinorrhea, other Physical Exam Vital Signs: Temp Pulse Resp BP Pulse Ox 97.3 F 80 17 105/47 L 99 01/20/19 14:12 01/20/19 14:12 01/20/19 14:12 01/20/19 14:12 01/20/19 14:12 Intake & Output 01/19/19 01/20/19 01/21/19 06:59 06:59 06:59 Weight 73.3 kg General appearance: PRESENT: mild distress Head exam: PRESENT: atraumatic Eye exam: PRESENT: EOMI Ear exam: PRESENT: normal external ear exam Mouth exam: PRESENT: moist Neck exam: PRESENT: full ROM Respiratory exam: PRESENT: clear to auscultation sujey Cardiovascular exam: PRESENT: RRR Pulses: PRESENT: +2 pedal pulses bilateral GI/Abdominal exam: PRESENT: soft Rectal exam: PRESENT: deferred, other - large 15-20 sacral decubiti stage 2 without underlying abscess or fluid collection, clean base Extremities exam: PRESENT: other - left heel decubiti approx 5-7 cm diameter on left heel dry area of skin necrosis with dry gangrene. early seperation, no areas of abscess or fluid collection. Neurological exam: PRESENT: alert, awake Psychiatric exam: PRESENT: depressed Skin exam: PRESENT: skin tears, other - large 15-20 sacral decubiti stage 2 without underlying abscess or fluid collection, clean base Results Laboratory Results: 01/20/19 14:30 01/20/19 14:30 01/20/19 01/20/19 01/20/19 14:30 14:30 14:30 WBC 8.0 RBC 4.16 Hgb 11.0 L Hct 33.6 L MCV 81 MCH 26.4 L MCHC 32.7 RDW 15.7 H Plt Count 373 Seg Neutrophils % 58.8 Lymphocytes % 31.7 Monocytes % 6.9 Eosinophils % 1.6 Basophils % 1.0 Absolute Neutrophils 4.7 Absolute Lymphocytes 2.6 Absolute Monocytes 0.6 Absolute Eosinophils 0.1 Absolute Basophils 0.1 Sodium 141.9 Potassium 3.9 Chloride 106 Carbon Dioxide 26 Anion Gap 10 BUN 29 H Creatinine 1.21 Est GFR ( Amer) 53 L Est GFR (Non-Af Amer) 44 L Glucose 84 Lactic Acid 1.1 Calcium 11.1 H Total Bilirubin 0.3 AST 21 ALT 14 Alkaline Phosphatase 86 C-Reactive Protein 12.0 H Total Protein 7.4 Albumin 4.0 Urine Color Urine Appearance Urine pH Ur Specific [place] Urine Protein Urine Glucose (UA) Urine Ketones Urine Blood Urine Nitrite Ur Leukocyte Esterase Urine WBC (Auto) Urine RBC (Auto) 01/20/19 15:36 WBC RBC Hgb Hct MCV MCH MCHC RDW Plt Count Seg Neutrophils % Lymphocytes % Monocytes % Eosinophils % Basophils % Absolute Neutrophils Absolute Lymphocytes Absolute Monocytes Absolute Eosinophils Absolute Basophils Sodium Potassium Chloride Carbon Dioxide Anion Gap BUN Creatinine Est GFR ( Amer) Est GFR (Non-Af Amer) Glucose Lactic Acid Calcium Total Bilirubin AST ALT Alkaline Phosphatase C-Reactive Protein Total Protein Albumin Urine Color YELLOW Urine Appearance SLIGHTLY-CLOUDY Urine pH 7.0 Ur Specific [place] 1.013 Urine Protein NEGATIVE Urine Glucose (UA) NEGATIVE Urine Ketones NEGATIVE Urine Blood NEGATIVE Urine Nitrite NEGATIVE Ur Leukocyte Esterase TRACE H Urine WBC (Auto) 10 Urine RBC (Auto) 0 Impressions: Foot X-Ray 01/20/19 14:45 IMPRESSION: Likely Achilles tendinopathy. No acute abnormality. Assessment & Plan - Plan Summary Plan Summary: impression stage 2 sacral decubiti stage 3 heel decubuti heel debrided of necrotic tissue recommend wet to dry dressing changes to left heel q 4 hrs with normal saline and kerlix gauze for the sacral decubit needs local wound care with silvedene ointment and dressing changes q 6-8 hrs needs airflow bed. or eggcrate mattress and turned every 2 hrs. please reconsult surgery as needed.
[2019-01-20] MEDS: OXYCODONE-ACETAMINOPHEN 5-325 MG TABLET PO PRN (21:48)
[2019-01-20] MEDS: PIPERACILLIN SODIUM/TAZOBACTAM 3.375 GM in NORMAL SALINE 100 ML IV SCH (21:48)
[2019-01-20] MEDS: ANASTROZOLE 1 MG TABLET PO SCH (21:48)
[2019-01-20] MEDS: PREGABALIN 100 MG CAPSULE PO SCH (21:48)
[2019-01-20] MEDS: NORMAL SALINE 1000 ML 1,000 ML IV PRN (21:49)
[2019-01-20] MEDS: FAMOTIDINE 20 MG TABLET PO SCH (21:49)
[2019-01-20 22:32] LABS: URINE AMPHETAMINES SCREEN NEGATIVE; URINE BARBITURATES SCREEN NEGATIVE; URINE BENZODIAZEPINES SCREEN NEGATIVE; URINE COCAINE SCREEN NEGATIVE; URINE MARIJUANA (THC) SCREEN NEGATIVE; URINE METHADONE SCREEN NEGATIVE; URINE PHENCYCLIDINE SCREEN NEGATIVE
[2019-01-21 01:09] LABS: CREATINE KINASE MB 2.29 ng/mL (<4.55)
[2019-01-21 01:12] LABS: TROPONIN I < 0.012 ng/mL
[2019-01-21] MEDS: PIPERACILLIN SODIUM/TAZOBACTAM 3.375 GM in NORMAL SALINE 100 ML IV SCH ×4 (02:38→21:23)
[2019-01-21] MEDS: PREGABALIN 100 MG CAPSULE PO SCH ×3 (05:55→21:23)
[2019-01-21 06:40] LABS: ABSOLUTE BASOPHILS # (AUTO) 0.1 10^3/uL (0.0-0.2); ABSOLUTE EOSINOPHILS # (AUTO) 0.3 10^3/uL (0.0-0.6); ABSOLUTE LYMPHOCYTES (AUTO) 2.5 10^3/uL (0.5-4.7); ABSOLUTE MONOCYTES (AUTO) 0.6 10^3/uL (0.1-1.4); ABSOLUTE NEUT (AUTO) 3.6 10^3/uL (1.7-8.2); BASOPHILS % (AUTO) 0.8 % (0-2); EOSINOPHILS % (AUTO) 3.6 % (0-6); HEMATOCRIT 31.1 % (36.0-47.0); HEMOGLOBIN 10.3 g/dL (12.0-15.5); LYMPHOCYTES % (AUTO) 35.8 % (13-45); MEAN CORPUSCULAR HEMOGLOBIN 26.7 pg (27.0-33.4); MEAN CORPUSCULAR HGB CONC 33.2 g/dL (32.0-36.0); MEAN CORPUSCULAR VOLUME 80 fl (80-97); PLATELET COUNT 320 10^3/uL (150-450); RED BLOOD COUNT 3.87 10^6/uL (3.72-5.28); RED CELL DISTRIBUTION WIDTH 15.6 % (11.5-14.0); SEGMENTED NEUTROPHILS % (AUTO) 51.8 % (42-78); TOTAL CELLS COUNTED % (AUTO) 100 %
[2019-01-21 07:01] LABS: ALANINE AMINOTRANSFERASE 18 U/L (9-52); ALBUMIN 3.4 g/dL (3.5-5.0); ALKALINE PHOSPHATASE 74 U/L (38-126); ANION GAP 11 (5-19); ASPARTATE AMINO TRANSFERASE 17 U/L (14-36); BILIRUBIN,DIRECT 0.3 mg/dL (0.0-0.4); BILIRUBIN,TOTAL 0.4 mg/dL (0.2-1.3); BLOOD UREA NITROGEN 26 mg/dL (7-20); CALCIUM 10.2 mg/dL (8.4-10.2); CARBON DIOXIDE 24 mmol/L (22-30); CHLORIDE 107 mmol/L (98-107); CHOLESTEROL 221.68 mg/dL (0-200); CREATINE KINASE 34 U/L (30-135); GLUCOSE 83 mg/dL (75-110); SODIUM 141.8 mmol/L (137-145); TOTAL PROTEIN 6.3 g/dL (6.3-8.2); TRIGLYCERIDES 179 mg/dL (<150)
[2019-01-21 07:11] LABS: DIRECT LDL 120 mg/dL (<100)
[2019-01-21 07:16] LABS: VLDL CHOLESTEROL 35.8 mg/dL (10-31)
[2019-01-21 07:18] LABS: CREATINE KINASE MB 1.55 ng/mL (<4.55)
[2019-01-21 07:25] LABS: TROPONIN I < 0.012 ng/mL
--- NOTE | 2019-01-21 08:48 | PDOC CONSULTATION ---
Consultation Consult Date: 01/21/19 Provider Consulted: LACY HOUSTON Consult reason:: Hematology/Oncology consultation was requested for patient (known to us as Kristie Ghotra) with history of breast cancer. History of Present Illness Admission Date/PCP: 01/20/19 17:58 History of Present Illness: KRISTIE FRANCISCO (Goodson) is a 68 year old female who was diagnosed with a right invasive ductal carcinoma of the breast in 2014. She underwent Lumpectomy, but no radiation was performed. She did not receive chemotherapy. Cancer was initially stage [id number] = stage IA. She was started on antihormonal therapy 10/2015 and continues adjuvant arimidex 1 mg daily. She has had no evidence of disease, except a stable lung nodule on CT scans. She was last seen in the office Jun 2018. Patient states that she had a spinal stimulator placed in Aug 2018. 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 She states that she was transferred to [facility] in Sep for the paralysis and after 18 days, they could not tell her what was wrong. She has an appointment to see a neurosurgeon next week. However, she presented to the ED with complaints of skin issues in her back and foot. She was found to have infected pressure ulcers and has requested Rehab placement for further strengthening and care. Today, she asks me if she will ever walk again. She states that she has been taking her arimidex. Past Medical History Cardiac Medical History: Denies: Coronary Artery Disease, Myocardial Infarction, Hypertension Pulmonary Medical History: Denies: Asthma, Bronchitis, Chronic Obstructive Pulmonary Disease (COPD), Pneumonia Neurological Medical History: Denies: Seizures Malignancy Medical History: Reports: Breast Cancer Musculoskeltal Medical History: Reports: Other - History of spinal problems status post spinal surgery in August 2018 Denies: Arthritis Psychiatric Medical History: Reports: Depression Hematology: Denies: Anemia Past Surgical History Past Surgical History: Reports: Appendectomy, Hysterectomy, Orthopedic Surgery - L knee, Other - Spinal stimulator September 2018 with subsequent removal Social History Lives with: Alone Smoking Status: Smoker,Current Status Unk Frequency of Alcohol Use: None Hx Recreational Drug Use: No Drugs: None Hx Prescription Drug Abuse: No - Advance Directive Resuscitation Status: Full Code Family History Family History: Hypertension Parental Family History Reviewed: Yes - Mother with lymphoma, father with colon and lung cancers Children Family History Reviewed: No Sibling(s) Family History Reviewed.: Yes - Brothers with bladder, kidney, and prostate cancer Medication/Allergy Home Medications: Clonazepam [Klonopin 1 mg Tablet] 1 mg PO Q8HP PRN 10/02/15 Anastrozole [Arimidex 1 mg Tablet] 1 mg PO DAILY 08/10/18 Pregabalin [Lyrica 100 mg Capsule] 100 mg PO Q8 11/15/18 Allergies/Adverse Reactions: No Known Allergies Allergy (Verified 01/20/19 14:39) Review of Systems Constitutional: ABSENT: fever(s), headache(s) Eyes: ABSENT: visual disturbances Ears: ABSENT: hearing changes Nose, Mouth, and Throat: ABSENT: sore throat Cardiovascular: ABSENT: chest pain Respiratory: ABSENT: dyspnea Gastrointestinal: ABSENT: constipation, nausea Genitourinary: ABSENT: dysuria Musculoskeletal: PRESENT: as per HPI Integumentary: PRESENT: as per HPI Neurological: PRESENT: as per HPI Hematologic/Lymphatic: ABSENT: easy bleeding Physical Exam Vital Signs: Temp Pulse Resp BP Pulse Ox 97.8 F 72 18 107/49 L 99 01/20/19 23:47 01/21/19 07:00 01/20/19 23:47 01/20/19 23:47 01/20/19 23:47 Intake & Output 01/20/19 01/21/19 01/22/19 06:59 06:59 06:59 Intake Total 744 Balance 744 Weight 71.9 kg General appearance: PRESENT: no acute distress, well-developed, well-nourished Exam: 68 year old female. Head exam: PRESENT: atraumatic, normocephalic Eye exam: PRESENT: EOMI Mouth exam: PRESENT: tongue midline Neck exam: ABSENT: lymphadenopathy, tenderness Respiratory exam: PRESENT: clear to auscultation sujey, unlabored Cardiovascular exam: PRESENT: RRR GI/Abdominal exam: PRESENT: normal bowel sounds, soft. ABSENT: tenderness Extremities exam: PRESENT: other - trace ankle edema. Neurological exam: PRESENT: alert, awake, oriented to person, oriented to place, oriented to time, oriented to situation, other - Full exam deferred. Psychiatric exam: PRESENT: appropriate affect Skin exam: PRESENT: normal color, other - escars on tops of toes. Grimm boots in place, Skin areas covered with dressings. I did not remove for my exam. Results Laboratory Results: 01/21/19 06:23 01/21/19 06:23 01/20/19 01/20/19 01/20/19 14:30 14:30 14:30 WBC 8.0 RBC 4.16 Hgb 11.0 L Hct 33.6 L MCV 81 MCH 26.4 L MCHC 32.7 RDW 15.7 H Plt Count 373 Seg Neutrophils % 58.8 Lymphocytes % 31.7 Monocytes % 6.9 Eosinophils % 1.6 Basophils % 1.0 Absolute Neutrophils 4.7 Absolute Lymphocytes 2.6 Absolute Monocytes 0.6 Absolute Eosinophils 0.1 Absolute Basophils 0.1 Sodium 141.9 Potassium 3.9 Chloride 106 Carbon Dioxide 26 Anion Gap 10 BUN 29 H Creatinine 1.21 Est GFR ( Amer) 53 L Est GFR (Non-Af Amer) 44 L Glucose 84 Lactic Acid 1.1 Calcium 11.1 H Magnesium Total Bilirubin 0.3 AST 21 ALT 14 Alkaline Phosphatase 86 C-Reactive Protein 12.0 H Total Protein 7.4 Albumin 4.0 Triglycerides Cholesterol LDL Cholesterol Direct VLDL Cholesterol HDL Cholesterol Urine Color Urine Appearance Urine pH Ur Specific Floyd Urine Protein Urine Glucose (UA) Urine Ketones Urine Blood Urine Nitrite Ur Leukocyte Esterase Urine WBC (Auto) Urine RBC (Auto) 01/20/19 01/21/19 01/21/19 15:36 06:23 06:23 WBC 7.0 RBC 3.87 Hgb 10.3 L Hct 31.1 L MCV 80 MCH 26.7 L MCHC 33.2 RDW 15.6 H Plt Count 320 Seg Neutrophils % 51.8 Lymphocytes % 35.8 Monocytes % 8.0 Eosinophils % 3.6 Basophils % 0.8 Absolute Neutrophils 3.6 Absolute Lymphocytes 2.5 Absolute Monocytes 0.6 Absolute Eosinophils 0.3 Absolute Basophils 0.1 Sodium 141.8 Potassium 4.0 Chloride 107 Carbon Dioxide 24 Anion Gap 11 BUN 26 H Creatinine 1.11 Est GFR ( Amer) 59 L Est GFR (Non-Af Amer) 49 L Glucose 83 Lactic Acid Calcium 10.2 Magnesium 1.4 L Total Bilirubin 0.4 AST 17 ALT 18 Alkaline Phosphatase 74 C-Reactive Protein Total Protein 6.3 Albumin 3.4 L Triglycerides 179 H Cholesterol 221.68 H LDL Cholesterol Direct 120 H VLDL Cholesterol 35.8 H HDL Cholesterol 49 Urine Color YELLOW Urine Appearance SLIGHTLY-CLOUDY Urine pH 7.0 Ur Specific Floyd 1.013 Urine Protein NEGATIVE Urine Glucose (UA) NEGATIVE Urine Ketones NEGATIVE Urine Blood NEGATIVE Urine Nitrite NEGATIVE Ur Leukocyte Esterase TRACE H Urine WBC (Auto) 10 Urine RBC (Auto) 0 01/20/19 01/20/19 01/21/19 14:30 14:30 00:19 Creatine Kinase 51 40 CK-MB (CK-2) 3.26 Troponin I < 0.012 01/21/19 01/21/19 01/21/19 00:19 06:23 06:23 Creatine Kinase 34 CK-MB (CK-2) 2.29 1.55 Troponin I < 0.012 < 0.012 Impressions: Foot X-Ray 01/20/19 14:45 IMPRESSION: Likely Achilles tendinopathy. No acute abnormality. Assessment & Plan - Diagnosis (1) Malignant neoplasm of right female breast Is this a current diagnosis for this admission?: No Plan: Patient should continue her arimidex. Although it does not sound like her current problems are due to cancer, and her initial cancer was a very early stage, if she has not already had MRI brain and Spine to rule out mets, I believe this would be reasonable. (2) Lung nodule seen on imaging study Is this a current diagnosis for this admission?: No Plan: Repeat CT with contrast of the chest was recommended for December. I do not see that she had this performed. Consider following up on this as well. (3) Decubitus ulcer, stage 3 with infection Is this a current diagnosis for this admission?: Yes Plan: I will defer to Surgery and primary team. It appears that she should benefit from rehab/SNF care. (4) Anemia Qualifiers: Other causes of anemia: chronic disease, other Is this a current diagnosis for this admission?: Yes Plan: Most likely anemia of chronic disease. However, this is a new finding. I will check anemia panel as well. - Plan Summary Plan Summary: I spoke with Dr. Maciel about her care. I agree that most of her care should be directed by a neurosurgeon. She has an appointment with them next week as outpatient. I will try to obtain records from [facility].
[2019-01-21] MEDS: DOCUSATE SODIUM 100 MG CAPSULE PO SCH ×2 (09:15→16:45)
[2019-01-21] MEDS: FAMOTIDINE 20 MG TABLET PO SCH ×2 (09:18→21:23)
[2019-01-21] MEDS: OMEGA-3 ACID ETHYL ESTERS 1 GM CAPSULE PO SCH (09:18)
[2019-01-21] MEDS: ANASTROZOLE 1 MG TABLET PO SCH (09:18)
[2019-01-21] MEDS: OXYCODONE-ACETAMINOPHEN 5-325 MG TABLET PO PRN (09:23)
[2019-01-21 09:38] LABS: ABSOLUTE RETICS # 0.025 10^6/uL (0.028-0.122); RETICULOCYTE COUNT (AUTO) 0.63 % (0.66-2.85)
[2019-01-21 09:43] LABS: IRON(TIBC) 53.3 ug/dL (37-170)
[2019-01-21] MEDS ORDERED: VANCOMYCIN HCL INJ 1000 MG VIAL IV SCH (10:00)
[2019-01-21] MEDS ORDERED: SILVER SULFADIAZINE 1% CREAM 50 GM TP SCH (10:00)
[2019-01-21 10:49] LABS: FOLATE > 20.00 ng/mL (>2.76)
[2019-01-21] MEDS: VANCOMYCIN HCL 1,000 MG in DEXTROSE 5%-WATER 250 ML IV SCH (17:02)
--- NOTE | 2019-01-21 18:12 | PDOC PROGRESS REPORT ---
Subjective Progress Note for:: 01/21/19 Subjective:: No adverse events overnight. No new complaints. She is not seem to be terribly concerned about her pressure wounds. She is more concerned about her back and asks more questions about what to do regarding her back than anything else. Reason For Visit: RT HEEL WOUND Physical Exam Vital Signs: Temp Pulse Resp BP Pulse Ox 98.1 F 83 18 101/59 L 96 01/21/19 16:00 01/21/19 16:00 01/21/19 16:00 01/21/19 16:01 01/21/19 16:00 Intake & Output 01/20/19 01/21/19 01/22/19 06:59 06:59 06:59 Intake Total 744 1700 Balance 744 1700 Weight 71.9 kg General appearance: PRESENT: no acute distress Respiratory exam: PRESENT: clear to auscultation sujey. ABSENT: rales, rhonchi, wheezes Cardiovascular exam: PRESENT: RRR. ABSENT: diastolic murmur, rubs, systolic murmur GI/Abdominal exam: PRESENT: normal bowel sounds, soft. ABSENT: distended, guarding, mass, organolmegaly, rebound, tenderness Extremities exam: PRESENT: other - Right foot wound is stage III with foul- smelling drainage. Musculoskeletal exam: PRESENT: other - She has a stage II sacral decubitus. Neurological exam: PRESENT: alert, awake, oriented to person, oriented to place, oriented to time, oriented to situation Skin exam: PRESENT: Warm and dry, wounds as noted above Results Laboratory Results: 01/21/19 06:23 01/21/19 06:23 01/21/19 01/21/19 01/21/19 06:23 06:23 06:23 WBC 7.0 RBC 3.87 Hgb 10.3 L Hct 31.1 L MCV 80 MCH 26.7 L MCHC 33.2 RDW 15.6 H Plt Count 320 Seg Neutrophils % 51.8 Lymphocytes % 35.8 Monocytes % 8.0 Eosinophils % 3.6 Basophils % 0.8 Absolute Neutrophils 3.6 Absolute Lymphocytes 2.5 Absolute Monocytes 0.6 Absolute Eosinophils 0.3 Absolute Basophils 0.1 Retic Count (auto) 0.63 L Absolute Retic 0.025 L Sodium 141.8 Potassium 4.0 Chloride 107 Carbon Dioxide 24 Anion Gap 11 BUN 26 H Creatinine 1.11 Est GFR ( Amer) 59 L Est GFR (Non-Af Amer) 49 L Glucose 83 Calcium 10.2 Magnesium 1.4 L Iron TIBC % Saturation Ferritin Total Bilirubin 0.4 AST 17 ALT 18 Alkaline Phosphatase 74 Total Protein 6.3 Albumin 3.4 L Triglycerides 179 H Cholesterol 221.68 H LDL Cholesterol Direct 120 H VLDL Cholesterol 35.8 H HDL Cholesterol 49 Vitamin B12 Folate 01/21/19 06:23 WBC RBC Hgb Hct MCV MCH MCHC RDW Plt Count Seg Neutrophils % Lymphocytes % Monocytes % Eosinophils % Basophils % Absolute Neutrophils Absolute Lymphocytes Absolute Monocytes Absolute Eosinophils Absolute Basophils Retic Count (auto) Absolute Retic Sodium Potassium Chloride Carbon Dioxide Anion Gap BUN Creatinine Est GFR ( Amer) Est GFR (Non-Af Amer) Glucose Calcium Magnesium Iron 53.3 TIBC 275 % Saturation 19 Ferritin 182.00 Total Bilirubin AST ALT Alkaline Phosphatase Total Protein Albumin Triglycerides Cholesterol LDL Cholesterol Direct VLDL Cholesterol HDL Cholesterol Vitamin B12 753.0 Folate > 20.00 01/20/19 01/20/19 01/21/19 14:30 14:30 00:19 Creatine Kinase 51 40 CK-MB (CK-2) 3.26 Troponin I < 0.012 01/21/19 01/21/19 01/21/19 00:19 06:23 06:23 Creatine Kinase 34 CK-MB (CK-2) 2.29 1.55 Troponin I < 0.012 < 0.012 Impressions: Foot X-Ray 01/20/19 14:45 IMPRESSION: Likely Achilles tendinopathy. No acute abnormality. Assessment and Plan - Diagnosis (1) Sacral decubitus ulcer, stage II Is this a current diagnosis for this admission?: Yes Plan: Local wound care per surgery, cultures are pending, empiric antibiotics. She also has a wound on her heel that was nonsurgical. We continue to try to offload every 2 hours. (2) ARIAN (acute kidney injury) Is this a current diagnosis for this admission?: Yes Plan: Resolved with IV fluids. (3) Anemia Qualifiers: Other causes of anemia: chronic disease, other Is this a current diagnosis for this admission?: Yes Plan: Likely from chronic disease. Hematology consulted. Anemia panel is pending. - Time Time Spent with patient: 15-24 minutes
[2019-01-21] MEDS: SILVER SULFADIAZINE 1% CREAM 50 GM TP SCH (21:23)
[2019-01-22] MEDS: OXYCODONE-ACETAMINOPHEN 5-325 MG TABLET PO PRN ×3 (03:56→22:21)
[2019-01-22] MEDS: PIPERACILLIN SODIUM/TAZOBACTAM 3.375 GM in NORMAL SALINE 100 ML IV SCH ×4 (03:57→22:21)
[2019-01-22] MEDS: PREGABALIN 100 MG CAPSULE PO SCH ×3 (06:48→22:21)
[2019-01-22] MEDS: NORMAL SALINE 1000 ML 1,000 ML IV PRN ×2 (09:10→22:20)
[2019-01-22] MEDS: FAMOTIDINE 20 MG TABLET PO SCH ×2 (09:10→22:21)
[2019-01-22] MEDS: ANASTROZOLE 1 MG TABLET PO SCH (09:10)
[2019-01-22] MEDS: OMEGA-3 ACID ETHYL ESTERS 1 GM CAPSULE PO SCH (09:10)
[2019-01-22] MEDS: SILVER SULFADIAZINE 1% CREAM 50 GM TP SCH ×2 (09:20→22:22)
[2019-01-22] MEDS: DOCUSATE SODIUM 100 MG CAPSULE PO SCH ×2 (09:21→17:57)
--- NOTE | 2019-01-22 13:01 | PDOC PROGRESS REPORT ---
Subjective Progress Note for:: 01/22/19 Subjective:: No adverse events overnight. No new complaints. She said her appetite has improved. She wants to be able to get into the wheelchair and somebody take her around today so she can get out of her room. Reason For Visit: RT HEEL WOUND Physical Exam Vital Signs: Temp Pulse Resp BP Pulse Ox 98.1 F 95 17 108/41 L 97 01/22/19 08:00 01/22/19 08:00 01/22/19 08:00 01/22/19 08:00 01/22/19 08:00 Intake & Output 01/21/19 01/22/19 01/23/19 06:59 06:59 06:59 Intake Total 744 2869 Balance 744 2869 Weight 71.9 kg 72.3 kg General appearance: PRESENT: no acute distress Respiratory exam: PRESENT: clear to auscultation sujey. ABSENT: rales, rhonchi, wheezes Cardiovascular exam: PRESENT: RRR. ABSENT: diastolic murmur, rubs, systolic murmur GI/Abdominal exam: PRESENT: normal bowel sounds, soft. ABSENT: distended, guarding, mass, organolmegaly, rebound, tenderness Extremities exam: PRESENT: other - Right foot wound is stage III with foul- smelling drainage. Musculoskeletal exam: PRESENT: other - She has a stage II sacral decubitus. Neurological exam: PRESENT: alert, awake, oriented to person, oriented to place, oriented to time, oriented to situation Skin exam: PRESENT: Warm and dry, wounds as noted above Results Laboratory Results: 01/21/19 06:23 01/21/19 06:23 01/20/19 01/20/19 01/21/19 14:30 14:30 00:19 Creatine Kinase 51 40 CK-MB (CK-2) 3.26 Troponin I < 0.012 01/21/19 01/21/19 01/21/19 00:19 06:23 06:23 Creatine Kinase 34 CK-MB (CK-2) 2.29 1.55 Troponin I < 0.012 < 0.012 Impressions: Foot X-Ray 01/20/19 14:45 IMPRESSION: Likely Achilles tendinopathy. No acute abnormality. Assessment and Plan - Diagnosis (1) Sacral decubitus ulcer, stage II Is this a current diagnosis for this admission?: Yes Plan: Local wound care per surgery, cultures are pending, empiric antibiotics. She also has a wound on her heel that was nonsurgical. We continue to try to offload every 2 hours. We are trying to get her placed in [place]. That should happen after the weekend. (2) ARIAN (acute kidney injury) Is this a current diagnosis for this admission?: Yes Plan: Resolved with IV fluids. (3) Anemia Qualifiers: Other causes of anemia: chronic disease, other Is this a current diagnosis for this admission?: Yes Plan: Likely from chronic disease. Hematology consulted. Anemia panel is pending. Will likely follow-up with hematology as an outpatient. - Time Time Spent with patient: 15-24 minutes
[2019-01-22] MEDS: VANCOMYCIN HCL 1,000 MG in DEXTROSE 5%-WATER 250 ML IV SCH (17:55)
[2019-01-23] MEDS: PIPERACILLIN SODIUM/TAZOBACTAM 3.375 GM in NORMAL SALINE 100 ML IV SCH ×3 (04:39→14:18)
[2019-01-23] MEDS: PREGABALIN 100 MG CAPSULE PO SCH ×3 (06:00→21:38)
[2019-01-23] MEDS: FAMOTIDINE 20 MG TABLET PO SCH ×2 (10:04→21:38)
[2019-01-23] MEDS: OMEGA-3 ACID ETHYL ESTERS 1 GM CAPSULE PO SCH (10:04)
[2019-01-23] MEDS: DOCUSATE SODIUM 100 MG CAPSULE PO SCH ×2 (10:04→17:29)
[2019-01-23] MEDS: ANASTROZOLE 1 MG TABLET PO SCH (10:05)
[2019-01-23] MEDS: SILVER SULFADIAZINE 1% CREAM 50 GM TP SCH ×2 (10:05→21:38)
[2019-01-23] MEDS: OXYCODONE-ACETAMINOPHEN 5-325 MG TABLET PO PRN ×2 (10:21→21:38)
--- NOTE | 2019-01-23 16:07 | PDOC PROGRESS REPORT ---
Subjective Progress Note for:: 01/23/19 Subjective:: No adverse events overnight. No new complaints. No fevers. She talked about wanting to get in a wheelchair and go around outside of her room yesterday but when the opportunity presented itself she refused to go. She again reiterates her desire to go to [facility]. Reason For Visit: RT HEEL WOUND Physical Exam Vital Signs: Temp Pulse Resp BP Pulse Ox 98.4 F 79 20 117/53 L 96 01/23/19 12:00 01/23/19 14:00 01/23/19 12:00 01/23/19 12:00 01/23/19 12:00 Intake & Output 01/22/19 01/23/19 01/24/19 06:59 06:59 06:59 Intake Total 2869 3564 200 Balance 2869 3564 200 Weight 72.3 kg 71.2 kg General appearance: PRESENT: no acute distress Respiratory exam: PRESENT: clear to auscultation sujey. ABSENT: rales, rhonchi, wheezes Cardiovascular exam: PRESENT: RRR. ABSENT: diastolic murmur, rubs, systolic murmur GI/Abdominal exam: PRESENT: normal bowel sounds, soft. ABSENT: distended, guarding, mass, organolmegaly, rebound, tenderness Extremities exam: PRESENT: other -right foot wound is dressed in a clean jaki ssing, she has bunny boots on. She cannot wiggle her toes on either foot. Musculoskeletal exam: PRESENT: other - She has a stage II sacral decubitus. Neurological exam: PRESENT: alert, awake, oriented to person, oriented to place, oriented to time, oriented to situation Skin exam: PRESENT: Warm and dry, wounds as noted above Results Laboratory Results: 01/21/19 06:23 01/21/19 06:23 01/20/19 15:36 Catheterized Urine Urine Culture - Final NO GROWTH 2 DAYS 01/20/19 01/20/19 01/21/19 14:30 14:30 00:19 Creatine Kinase 51 40 CK-MB (CK-2) 3.26 Troponin I < 0.012 01/21/19 01/21/19 01/21/19 00:19 06:23 06:23 Creatine Kinase 34 CK-MB (CK-2) 2.29 1.55 Troponin I < 0.012 < 0.012 Impressions: Foot X-Ray 01/20/19 14:45 IMPRESSION: Likely Achilles tendinopathy. No acute abnormality. Assessment and Plan - Diagnosis (1) Sacral decubitus ulcer, stage II Is this a current diagnosis for this admission?: Yes Plan: Local wound care per surgery, culture showed an E. coli that has multiple drug resistances but is sensitive to Cipro, as well as a staph aureus that is r esistant to clindamycin but is sensitive to cephalosporins. We will switch her antibiotics to Cipro and Keflex. She also has a wound on her heel that was nonsurgical. We continue to try to offload every 2 hours. We are trying to get her placed in [place]. (2) ARIAN (acute kidney injury) Is this a current diagnosis for this admission?: Yes Plan: Resolved with IV fluids. (3) Anemia Qualifiers: Other causes of anemia: chronic disease, other Is this a current diagnosis for this admission?: Yes Plan: Likely from chronic disease. Hematology consulted. Anemia panel is pending. Will likely follow-up with hematology as an outpatient. - Time Time Spent with patient: 15-24 minutes
[2019-01-23] MEDS: CEPHALEXIN 500 MG CAPSULE PO SCH ×2 (17:29→23:40)
[2019-01-23] MEDS: CIPROFLOXACIN HCL 500 MG TABLET PO SCH (21:38)
[2019-01-24] MEDS: PREGABALIN 100 MG CAPSULE PO SCH ×3 (06:05→22:12)
[2019-01-24] MEDS: CEPHALEXIN 500 MG CAPSULE PO SCH ×2 (06:05→11:16)
[2019-01-24] MEDS: OXYCODONE-ACETAMINOPHEN 5-325 MG TABLET PO PRN ×2 (06:16→18:08)
--- NOTE | 2019-01-24 08:32 | PDOC PROGRESS REPORT ---
Subjective Progress Note for:: 01/24/19 Subjective:: Patient is worried about the infections. She asks me how she got food poisoning in her heel and asks if it the flesh eating bacteria. I reassured her that this is not the case and that the antibiotics should take care of the infections. She denies pain or nausea. Reason For Visit: RT HEEL WOUND Physical Exam Vital Signs: Temp Pulse Resp BP Pulse Ox 98 F 63 16 118/47 L 99 01/24/19 00:00 01/24/19 02:00 01/24/19 00:00 01/24/19 00:00 01/24/19 00:00 Intake & Output 01/23/19 01/24/19 01/25/19 06:59 06:59 06:59 Intake Total 3564 890 Balance 3564 890 Weight 71.2 kg 71.3 kg General appearance: PRESENT: no acute distress, well-developed, well-nourished Head exam: PRESENT: normocephalic Respiratory exam: PRESENT: unlabored GI/Abdominal exam: PRESENT: normal bowel sounds, soft. ABSENT: tenderness Extremities exam: PRESENT: +1 edema Neurological exam: PRESENT: alert, awake Psychiatric exam: PRESENT: appropriate affect Skin exam: PRESENT: other - Grimm boots in place. Heel is wrapped in dressing. Lesions on toes without change. Results Laboratory Results: 01/21/19 06:23 01/21/19 06:23 01/20/19 01/20/19 01/21/19 14:30 14:30 00:19 Creatine Kinase 51 40 CK-MB (CK-2) 3.26 Troponin I < 0.012 01/21/19 01/21/19 01/21/19 00:19 06:23 06:23 Creatine Kinase 34 CK-MB (CK-2) 2.29 1.55 Troponin I < 0.012 < 0.012 Impressions: Foot X-Ray 01/20/19 14:45 IMPRESSION: Likely Achilles tendinopathy. No acute abnormality. Assessment & Plan - Diagnosis (1) Malignant neoplasm of right female breast Is this a current diagnosis for this admission?: No Plan: No evidence of breast cancer currently. Continue with adjuvant aromatase inhibitor tablet daily. (2) Lung nodule seen on imaging study Is this a current diagnosis for this admission?: No (3) Decubitus ulcer, stage 3 with infection Is this a current diagnosis for this admission?: Yes (4) Anemia Qualifiers: Other causes of anemia: chronic disease, other Is this a current diagnosis for this admission?: Yes Plan: No evidence of iron, B12, or Folic Acid deficiency. Most likely anemia of chronic disease. May transfuse if indicated. No indication at this time. - Plan Summary Plan Summary: I will sign off. Please reconsult if needed.
[2019-01-24] MEDS: DOCUSATE SODIUM 100 MG CAPSULE PO SCH ×2 (11:16→17:48)
[2019-01-24] MEDS: OMEGA-3 ACID ETHYL ESTERS 1 GM CAPSULE PO SCH (11:16)
[2019-01-24] MEDS: CIPROFLOXACIN HCL 500 MG TABLET PO SCH (11:16)
[2019-01-24] MEDS: ANASTROZOLE 1 MG TABLET PO SCH (11:16)
[2019-01-24] MEDS: SILVER SULFADIAZINE 1% CREAM 50 GM TP SCH ×2 (11:17→22:14)
[2019-01-24] MEDS: FAMOTIDINE 20 MG TABLET PO SCH ×2 (11:18→22:12)
--- NOTE | 2019-01-24 16:04 | PDOC PROGRESS REPORT ---
Subjective Progress Note for:: 01/24/19 Subjective:: No adverse events overnight. No new complaints. Vital signs are stable. Eating and drinking without difficulty. No fevers. Still cannot move her feet. Reason For Visit: RT HEEL WOUND Physical Exam Vital Signs: Temp Pulse Resp BP Pulse Ox 98.0 F 69 18 115/52 L 97 01/24/19 12:00 01/24/19 12:00 01/24/19 12:00 01/24/19 12:00 01/24/19 12:00 Intake & Output 01/23/19 01/24/19 01/25/19 06:59 06:59 06:59 Intake Total 3564 890 Balance 3564 890 Weight 71.2 kg 71.3 kg General appearance: PRESENT: no acute distress Respiratory exam: PRESENT: clear to auscultation sujey. ABSENT: rales, rhonchi, wheezes Cardiovascular exam: PRESENT: RRR. ABSENT: diastolic murmur, rubs, systolic murmur GI/Abdominal exam: PRESENT: normal bowel sounds, soft. ABSENT: distended, guarding, mass, organolmegaly, rebound, tenderness Extremities exam: PRESENT: other - Right foot wound is stage III with minimal erythema and decreased drainage Musculoskeletal exam: PRESENT: other - She has a stage II sacral decubitus. Neurological exam: PRESENT: alert, awake, oriented to person, oriented to place, oriented to time, oriented to situation Skin exam: PRESENT: Warm and dry, wounds as noted above Results Laboratory Results: 01/21/19 06:23 01/21/19 06:23 01/20/19 17:53 Foot - Decubitis Ulcer Gram Stain - Final 01/20/19 17:53 Foot - Decubitis Ulcer Wound Culture - Final Escherichia Coli Esbl Staphylococcus Aureus Enterococcus Faecalis(Group D) 01/20/19 01/20/19 01/21/19 14:30 14:30 00:19 Creatine Kinase 51 40 CK-MB (CK-2) 3.26 Troponin I < 0.012 01/21/19 01/21/19 01/21/19 00:19 06:23 06:23 Creatine Kinase 34 CK-MB (CK-2) 2.29 1.55 Troponin I < 0.012 < 0.012 Impressions: Foot X-Ray 01/20/19 14:45 IMPRESSION: Likely Achilles tendinopathy. No acute abnormality. Assessment and Plan - Diagnosis (1) Sacral decubitus ulcer, stage II Is this a current diagnosis for this admission?: Yes Plan: Local wound care per surgery. She also has a wound on her heel that was also nonsurgical. Cultures initially showed an ESBL E. coli sensitive to fluoroquinolones as well as an MSSA, and she was initially started on Cipro and Keflex. However, today the culture turned positive for Enterococcus faecalis. I have switched her antibiotics to Levaquin and Augmentin and attempt to have comprehensive coverage for all 3 organisms. We continue to try to offload every 2 hours. We are trying to get her placed in [place]. (2) ARIAN (acute kidney injury) Is this a current diagnosis for this admission?: Yes Plan: Resolved with IV fluids. (3) Anemia Qualifiers: Other causes of anemia: chronic disease, other Is this a current diagnosis for this admission?: Yes Plan: Likely from chronic disease. Hematology consulted. Anemia panel is pending. Will likely follow-up with hematology as an outpatient. - Time Time Spent with patient: 15-24 minutes
[2019-01-24] MEDS: AMOXICILLIN TR/POT CLAVULANATE 500-125 MG TAB PO SCH (22:11)
[2019-01-24] MEDS: ONDANSETRON HCL INJ/PF 4 MG/2 ML SDV IV PRN (23:12)
[2019-01-25] MEDS ORDERED: MAGNESIUM HYDROXIDE SUSP 30 ML UDCUP PO PRN (00:50)
[2019-01-25] MEDS ORDERED: PROMETHAZINE HCL INJ 25 MG/1 ML VIAL IV PRN (03:43)
[2019-01-25] MEDS: PREGABALIN 100 MG CAPSULE PO SCH ×3 (07:13→22:05)
[2019-01-25] MEDS: AMOXICILLIN TR/POT CLAVULANATE 500-125 MG TAB PO SCH ×3 (07:13→22:05)
[2019-01-25] MEDS: DOCUSATE SODIUM 100 MG CAPSULE PO SCH ×2 (09:38→17:36)
[2019-01-25] MEDS: LEVOFLOXACIN 750 MG TABLET PO SCH (09:38)
[2019-01-25] MEDS: OMEGA-3 ACID ETHYL ESTERS 1 GM CAPSULE PO SCH (09:38)
[2019-01-25] MEDS: ANASTROZOLE 1 MG TABLET PO SCH (09:38)
[2019-01-25] MEDS: SILVER SULFADIAZINE 1% CREAM 50 GM TP SCH ×2 (09:38→22:07)
[2019-01-25] MEDS: FAMOTIDINE 20 MG TABLET PO SCH ×2 (09:38→22:05)
[2019-01-25] MEDS: ONDANSETRON HCL INJ/PF 4 MG/2 ML SDV IV PRN (09:39)
--- NOTE | 2019-01-25 15:29 | PDOC PROGRESS REPORT ---
Subjective Progress Note for:: 01/25/19 Subjective:: This is a 68 year old female with paraplegia and history of breast CA and chronic sacral and right heel ulcer who presented with increasing pain and drainage on the heel ulcer. She was seen by surgery on the day of admission and had bedside debridement of necrotic tissue on the heel ulcer. Surgery has recommended wound dressings. Her wound cultures came back positive for E. faecalis, MSSA and E coli ESBL. She is currently on Augmentin and Levaquin. She is awaiting SNF/rehab placement. This morning, she said she threw up once. Denies chest pain, abdominal pain or SOB. Reason For Visit: RT HEEL WOUND Physical Exam Vital Signs: Temp Pulse Resp BP Pulse Ox 100.1 F 107 H 16 101/57 L 93 01/25/19 11:10 01/25/19 14:00 01/25/19 11:10 01/25/19 11:10 01/25/19 11:10 Intake & Output 01/24/19 01/25/19 01/26/19 06:59 06:59 06:59 Intake Total 890 874 Output Total 400 600 Balance 890 474 -600 Weight 157 lb 3.033 oz 158 lb 15.253 oz General appearance: PRESENT: no acute distress, well-developed, well-nourished Head exam: PRESENT: atraumatic, normocephalic Eye exam: PRESENT: conjunctiva pink, EOMI, PERRLA. ABSENT: scleral icterus Ear exam: PRESENT: normal external ear exam Mouth exam: PRESENT: moist, tongue midline Neck exam: ABSENT: carotid bruit, JVD, lymphadenopathy, thyromegaly Respiratory exam: PRESENT: clear to auscultation sujey. ABSENT: rales, rhonchi, wheezes Cardiovascular exam: PRESENT: RRR. ABSENT: diastolic murmur, rubs, systolic murmur Pulses: PRESENT: normal dorsalis pedis pul GI/Abdominal exam: PRESENT: normal bowel sounds, soft. ABSENT: distended, gua rding, mass, organolmegaly, rebound, tenderness Rectal exam: PRESENT: deferred Neurological exam: PRESENT: alert, awake, oriented to person, oriented to place, oriented to time, oriented to situation, CN II-XII grossly intact. ABSENT: motor sensory deficit Skin exam: PRESENT: other - grade 3 heel ulcer grade 2 sacral ulcer Results Laboratory Results: 01/21/19 06:23 01/21/19 06:23 01/20/19 14:30 Blood Blood Culture - Final NO GROWTH IN 5 DAYS 01/20/19 17:53 Foot - Decubitis Ulcer Gram Stain - Final 01/20/19 17:53 Foot - Decubitis Ulcer Wound Culture - Final Escherichia Coli Esbl Staphylococcus Aureus Enterococcus Faecalis(Group D) 01/20/19 01/20/19 01/21/19 14:30 14:30 00:19 Creatine Kinase 51 40 CK-MB (CK-2) 3.26 Troponin I < 0.012 01/21/19 01/21/19 01/21/19 00:19 06:23 06:23 Creatine Kinase 34 CK-MB (CK-2) 2.29 1.55 Troponin I < 0.012 < 0.012 Impressions: Foot X-Ray 01/20/19 14:45 IMPRESSION: Likely Achilles tendinopathy. No acute abnormality. Assessment and Plan - Diagnosis (1) Decubitus ulcer, stage 3 with infection Is this a current diagnosis for this admission?: Yes Plan: She was seen by surgery on the day of admission and had bedside debridement of necrotic tissues on the the heel ulcer. Surgery has recommended wound dressings. Her wound cultures came back positive for E. faecalis, MSSA and E coli ESBL. She is currently on Augmentin and Levaquin. Patient may be discharged on monotherapy with Levaquin. Will consult ID for further home antibiotic recommendations. (2) Sacral decubitus ulcer, stage II Is this a current diagnosis for this admission?: Yes Plan: As per number 2. (3) ARIAN (acute kidney injury) Is this a current diagnosis for this admission?: Yes Plan: Resolved with IV fluids. - Time Time Spent with patient: 15-24 minutes
[2019-01-25] MEDS: LIDOCAINE 5% (700 MG) TRANSDERMAL ADH..PATCH TP SCH (15:30)
--- NOTE | 2019-01-25 23:06 | RADIOLOGY REPORT (SQ) ---
EXAM DESCRIPTION: XR ABDOMEN 1 VIEW (KUB) COMPLETED DATE/TME: 01/25/2019 18:04 CLINICAL HISTORY: 68 years, Female, constipation, fecal impaction COMPARISON: None. NUMBER OF VIEWS: Two TECHNIQUE: Two views of the abdomen were obtained. LIMITATIONS: None. FINDINGS: Gas and a moderate amount of stool are noted throughout the large bowel. A few scattered nondilated loops of small bowel are also visible throughout the abdomen. Phleboliths project over the pelvic inlet. No suspicious osseous anomalies. No obvious subdiaphragmatic free air. IMPRESSION: Nonobstructive bowel gas pattern. Moderate colonic stool load. copyright 2010 [employer] [facility] [employer]- All Rights Reserved
[2019-01-26] MEDS: PREGABALIN 100 MG CAPSULE PO SCH ×3 (05:27→21:18)
[2019-01-26] MEDS: AMOXICILLIN TR/POT CLAVULANATE 500-125 MG TAB PO SCH ×2 (05:27→13:52)
[2019-01-26] MEDS: NORMAL SALINE 1000 ML 1,000 ML IV PRN (05:29)
[2019-01-26] MEDS: OMEGA-3 ACID ETHYL ESTERS 1 GM CAPSULE PO SCH (09:50)
[2019-01-26] MEDS: LEVOFLOXACIN 750 MG TABLET PO SCH (09:50)
[2019-01-26] MEDS: FAMOTIDINE 20 MG TABLET PO SCH ×2 (09:51→21:18)
[2019-01-26] MEDS: LIDOCAINE 5% (700 MG) TRANSDERMAL ADH..PATCH TP SCH (09:51)
[2019-01-26] MEDS: DOCUSATE SODIUM 100 MG CAPSULE PO SCH ×2 (09:51→17:46)
[2019-01-26] MEDS: ANASTROZOLE 1 MG TABLET PO SCH (09:52)
[2019-01-26] MEDS: SILVER SULFADIAZINE 1% CREAM 50 GM TP SCH ×2 (11:05→21:19)
--- NOTE | 2019-01-26 14:22 | Progress Note ---
Provider Note Provider Note: ID Consult Note Asked to review patient's chart. Pt not seen or examined. Ms. Rodas is a 68 year old woman with limited mobility who was admitted on 01/20 with complaints of worsening decubitus ulcer. She has a right heel ulcer that had increasing pain, malodor, and drainage from the wound. On exam she was apprecaited as having on her heel a 5-7 cm diameter dry area of skin necrosis with dry gangrene and no areas of abscess appreciated. She had bedside debridement of necrotic tissue on 01/20 and was recommended to continue dressing changes by Surgery. Plain films of the foot showed no acute abnormality; likely Achilles tendinopathy was present. She was empirically given vancomycin and Zosyn from admission 01/20 to 01/23. Subsequently this was switched to Levaquin 750 mg PO daily and Augmentin 500/125 TID. She is approaching discharge. Impression/Recommendations Pt has been managed for a soft tissue infection involving a R heel decubitus ulcer. - Plain films did not disclose any bony erosive changes. She had no bacteremia. The wound has been noted to have minimal erythema and decreased drainage. - Agree, Levaquin 750 mg daily monotherapy to complete treatment should be sufficient. Dedicated enterococcal activity is often not required in mixed infections, particularly when combined with debridement/source control. - Total duration of therapy for a skin/soft tissue infection is generally in the range of 5-14 days depending on the severity of the infection and response to therapy. With resolving cardinal markers of inflammation noted about the wound and debridement having been undertaken, I do not think that she will need a long course of antibiotics. She is essentially on day 6 or 7 of treatment with activity against the organisms isolated, and continuing to complete a total of 7-10 days might be reasonable. Madhu Beltran MD [facility] Infectious Diseases pager [phone]
--- NOTE | 2019-01-26 15:45 | PDOC PROGRESS REPORT ---
Subjective Progress Note for:: 01/26/19 Subjective:: This is a 68 year old female with paraplegia and history of breast CA and chronic sacral and right heel ulcer who presented with increasing pain and drainage on the heel ulcer. She was seen by surgery on the day of admission and had bedside debridement of necrotic tissue on the heel ulcer. Surgery has recommended wound dressings. Her wound cultures came back positive for E. faecalis, MSSA and E coli ESBL. She is currently on Augmentin and Levaquin. No acute event overnight. No recurrence of vomiting. She is tolerating diet well. She is awaiting SNF/rehab placement. Denies chest pain, abdominal pain or SOB. Reason For Visit: RT HEEL WOUND Physical Exam Vital Signs: Temp Pulse Resp BP Pulse Ox 97.8 F 79 16 108/50 L 94 01/26/19 10:58 01/26/19 14:00 01/26/19 10:58 01/26/19 10:58 01/26/19 10:58 Intake & Output 01/25/19 01/26/19 01/27/19 06:59 06:59 06:59 Intake Total 874 834 360 Output Total 400 1200 Balance 474 -366 360 Weight 158 lb 15.253 oz 161 lb 13.109 oz General appearance: PRESENT: no acute distress, well-developed, well-nourished Head exam: PRESENT: atraumatic, normocephalic Eye exam: PRESENT: conjunctiva pink, EOMI, PERRLA. ABSENT: scleral icterus Ear exam: PRESENT: normal external ear exam Mouth exam: PRESENT: moist, tongue midline Neck exam: ABSENT: carotid bruit, JVD, lymphadenopathy, thyromegaly Respiratory exam: PRESENT: clear to auscultation sujey. ABSENT: rales, rhonchi, wheezes Cardiovascular exam: PRESENT: RRR. ABSENT: diastolic murmur, rubs, systolic murmur GI/Abdominal exam: PRESENT: normal bowel sounds, soft. ABSENT: distended, guarding, mass, organolmegaly, rebound, tenderness Rectal exam: PRESENT: deferred Neurological exam: PRESENT: alert, awake, oriented to person, oriented to place, oriented to time, oriented to situation, CN II-XII grossly intact. ABSENT: motor sensory deficit Results Laboratory Results: 01/21/19 06:23 01/21/19 06:23 01/20/19 15:46 Blood Blood Culture - Final NO GROWTH IN 5 DAYS 01/20/19 14:30 Blood Blood Culture - Final NO GROWTH IN 5 DAYS 01/20/19 01/20/19 01/21/19 14:30 14:30 00:19 Creatine Kinase 51 40 CK-MB (CK-2) 3.26 Troponin I < 0.012 01/21/19 01/21/19 01/21/19 00:19 06:23 06:23 Creatine Kinase 34 CK-MB (CK-2) 2.29 1.55 Troponin I < 0.012 < 0.012 Impressions: Foot X-Ray 01/20/19 14:45 IMPRESSION: Likely Achilles tendinopathy. No acute abnormality. KUB X-Ray 01/25/19 18:04 IMPRESSION: Nonobstructive bowel gas pattern. Moderate colonic stool load. copyright 2010 [employer]- All Rights Reserved Assessment and Plan - Diagnosis (1) Decubitus ulcer, stage 3 with infection Is this a current diagnosis for this admission?: Yes Plan: She was seen by surgery on the day of admission and had bedside debridement of necrotic tissues on the the heel ulcer. Surgery has recommended wound dressings. Her wound cultures came back positive for E. faecalis, MSSA and E coli ESBL. She is currently on Augmentin and Levaquin. Appreciate ID recommendations. Discontinue Augmentin. Continue levofloxacin. (2) Sacral decubitus ulcer, stage II Is this a current diagnosis for this admission?: Yes Plan: As per number 2. (3) ARIAN (acute kidney injury) Is this a current diagnosis for this admission?: Yes Plan: Resolved with IV fluids. - Time Time Spent with patient: 15-24 minutes
[2019-01-26] MEDS: OXYCODONE-ACETAMINOPHEN 5-325 MG TABLET PO PRN (18:07)
[2019-01-27] MEDS: NORMAL SALINE 1000 ML 1,000 ML IV PRN (05:32)
[2019-01-27] MEDS: PREGABALIN 100 MG CAPSULE PO SCH ×3 (05:32→21:56)
[2019-01-27] MEDS: OMEGA-3 ACID ETHYL ESTERS 1 GM CAPSULE PO SCH (09:42)
[2019-01-27] MEDS: LEVOFLOXACIN 750 MG TABLET PO SCH (09:42)
[2019-01-27] MEDS: FAMOTIDINE 20 MG TABLET PO SCH ×2 (09:42→21:56)
[2019-01-27] MEDS: ANASTROZOLE 1 MG TABLET PO SCH (09:42)
[2019-01-27] MEDS: LIDOCAINE 5% (700 MG) TRANSDERMAL ADH..PATCH TP SCH (09:43)
[2019-01-27] MEDS: ACETAMINOPHEN 325 MG TABLET PO PRN (09:45)
[2019-01-27] MEDS: SILVER SULFADIAZINE 1% CREAM 50 GM TP SCH ×2 (09:46→21:56)
[2019-01-27] MEDS: DOCUSATE SODIUM 100 MG CAPSULE PO SCH ×2 (09:46→18:48)
[2019-01-27] MEDS: OXYCODONE-ACETAMINOPHEN 5-325 MG TABLET PO PRN (16:34)
--- NOTE | 2019-01-27 16:41 | PDOC PROGRESS REPORT ---
Subjective Progress Note for:: 01/27/19 Subjective:: This is a 68 year old female with paraplegia and history of breast CA and chronic sacral and right heel ulcer who presented with increasing pain and drainage on the heel ulcer. She was seen by surgery on the day of admission and had bedside debridement of necrotic tissue on the heel ulcer. Surgery has recommended wound dressings. Her wound cultures came back positive for E. faecalis, MSSA and E coli ESBL. She is currently on Augmentin and Levaquin. No acute event overnight. Denies acute complaints. She is tolerating diet well. She is awaiting SNF/rehab placement. Reason For Visit: RT HEEL WOUND Physical Exam Vital Signs: Temp Pulse Resp BP Pulse Ox 97.8 F 63 18 103/40 L 97 01/27/19 12:00 01/27/19 12:00 01/27/19 12:00 01/27/19 12:00 01/27/19 12:00 Intake & Output 01/26/19 01/27/19 01/28/19 06:59 06:59 06:59 Intake Total 834 2756 Output Total 1200 1175 Balance -366 1581 Weight 161 lb 13.109 oz 163 lb 9.328 oz General appearance: PRESENT: no acute distress, well-developed, well-nourished Head exam: PRESENT: atraumatic, normocephalic Eye exam: PRESENT: conjunctiva pink, EOMI, PERRLA. ABSENT: scleral icterus Ear exam: PRESENT: normal external ear exam Mouth exam: PRESENT: moist, tongue midline Neck exam: ABSENT: carotid bruit, JVD, lymphadenopathy, thyromegaly Respiratory exam: PRESENT: clear to auscultation sujey. ABSENT: rales, rhonchi, wheezes Cardiovascular exam: PRESENT: RRR. ABSENT: diastolic murmur, rubs, systolic murmur Pulses: PRESENT: normal dorsalis pedis pul GI/Abdominal exam: PRESENT: normal bowel sounds, soft. ABSENT: distended, guarding, mass, organolmegaly, rebound, tenderness Rectal exam: PRESENT: deferred Neurological exam: PRESENT: alert, awake, oriented to person, oriented to place, oriented to time, oriented to situation, CN II-XII grossly intact. ABSENT: motor sensory deficit Results Laboratory Results: 01/21/19 06:23 01/21/19 06:23 01/20/19 01/20/19 01/21/19 14:30 14:30 00:19 Creatine Kinase 51 40 CK-MB (CK-2) 3.26 Troponin I < 0.012 01/21/19 01/21/19 01/21/19 00:19 06:23 06:23 Creatine Kinase 34 CK-MB (CK-2) 2.29 1.55 Troponin I < 0.012 < 0.012 Impressions: Foot X-Ray 01/20/19 14:45 IMPRESSION: Likely Achilles tendinopathy. No acute abnormality. KUB X-Ray 01/25/19 18:04 IMPRESSION: Nonobstructive bowel gas pattern. Moderate colonic stool load. copyright 2010 [email or web address]- All Rights Reserved Assessment and Plan - Diagnosis (1) Decubitus ulcer, stage 3 with infection Is this a current diagnosis for this admission?: Yes Plan: She was seen by surgery on the day of admission and had bedside debridement of necrotic tissues on the the heel ulcer. Surgery has recommended wound dressings. Her wound cultures came back positive for E. faecalis, MSSA and E coli ESBL. She is currently on Augmentin and Levaquin. Appreciate ID recommendations. Discontinued Augmentin. Continue levofloxacin. (2) Sacral decubitus ulcer, stage II Is this a current diagnosis for this admission?: Yes Plan: As per number 2. (3) ARIAN (acute kidney injury) Is this a current diagnosis for this admission?: Yes Plan: Resolved with IV fluids. - Time Time Spent with patient: 15-24 minutes
[2019-01-28] MEDS: ACETAMINOPHEN 325 MG TABLET PO PRN (04:31)
[2019-01-28] MEDS: NORMAL SALINE 1000 ML 1,000 ML IV PRN (04:32)
[2019-01-28] MEDS: PREGABALIN 100 MG CAPSULE PO SCH ×2 (06:04→14:12)
[2019-01-28] MEDS: FAMOTIDINE 20 MG TABLET PO SCH (09:49)
[2019-01-28] MEDS: LEVOFLOXACIN 750 MG TABLET PO SCH (09:49)
[2019-01-28] MEDS: DOCUSATE SODIUM 100 MG CAPSULE PO SCH (09:49)
[2019-01-28] MEDS: LIDOCAINE 5% (700 MG) TRANSDERMAL ADH..PATCH TP SCH (09:49)
[2019-01-28] MEDS: OMEGA-3 ACID ETHYL ESTERS 1 GM CAPSULE PO SCH (09:49)
[2019-01-28] MEDS: ANASTROZOLE 1 MG TABLET PO SCH (09:49)
[2019-01-28] MEDS: SILVER SULFADIAZINE 1% CREAM 50 GM TP SCH (11:16)
--- NOTE | 2019-01-28 12:17 | PDOC TRANSFER SUMMARY ---
General - Admit/Disc Date/PCP Admission Date/Primary Care Provider: 01/20/19 17:58 Discharge Date: 01/28/19 - Discharge Diagnosis (1) Decubitus ulcer, stage 3 with infection Is this a current diagnosis for this admission?: Yes (2) Sacral decubitus ulcer, stage II Is this a current diagnosis for this admission?: Yes (3) ARIAN (acute kidney injury) Is this a current diagnosis for this admission?: Yes - Additional Information Resuscitation Status: Full Code Home Medications: Clonazepam [Klonopin 1 mg Tablet] 1 mg PO Q8HP PRN 10/02/15 Anastrozole [Arimidex 1 mg Tablet] 1 mg PO DAILY 08/10/18 Pregabalin [Lyrica 100 mg Capsule] 100 mg PO Q8 11/15/18 History of Present Illness Admission Date/PCP: 01/20/19 17:58 History of Present Illness: Admitting hospitalist's H&P: PARESH FRANCISCO is a 68 year old female with history of spinal surgery in August last year as per the patient she became pathologic 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 Vanita is her doctor, anxiety disorder, panic attacks came to the emergency room with complaints of development of sacral and right heel decubitus 1 week ago. Patient is complaining of right heel pain for the last 1 week and foul-smelling odor from the wound patient says she is able to only move from a bed to wheelchair and wheelchair to bed unable to walk. She had home health but despite their best efforts the sacral wounds and right hand wounds are getting worse decided to came to the emergency room for further evaluation and the patient is requesting to be placed in a rehab facility. Denies any fevers denies any nausea vomiting denies any constipation or diarrhea denies any problems with urination. Denies any anxiety depression. Hospital Course Hospital Course: This is a 68 year old female with paraplegia and history of breast CA and chronic sacral and right heel ulcer who presented with increasing pain and drainage on the heel ulcer. She was seen by surgery on the day of admission and had bedside debridement of necrotic tissue on the heel ulcer. Surgery has recommended wound dressings. Her wound cultures came back positive for E. faecalis, MSSA and E coli ESBL. She was initially started on IV antibiotics then switched to Augmentin and Levaquin. ID was consulted who did agree about monotherapy with Levaquin. She will need 3 more days of Levaquin. She also had ARIAN which resolved with IV fluids. She will be going to [facility]. Physical Exam Vital Signs: Temp Pulse Resp BP Pulse Ox 98.1 F 84 18 114/70 99 01/28/19 08:00 01/28/19 08:00 01/28/19 08:00 01/28/19 08:00 01/28/19 08:00 Intake & Output 01/27/19 01/28/19 01/29/19 06:59 06:59 06:59 Intake Total 2756 1040 Output Total 1175 700 Balance 1581 340 Weight 163 lb 9.328 oz 165 lb 12.602 oz Results Laboratory Results: 01/21/19 06:23 01/21/19 06:23 01/20/19 01/20/19 01/21/19 14:30 14:30 00:19 Creatine Kinase 51 40 CK-MB (CK-2) 3.26 Troponin I < 0.012 01/21/19 01/21/19 01/21/19 00:19 06:23 06:23 Creatine Kinase 34 CK-MB (CK-2) 2.29 1.55 Troponin I < 0.012 < 0.012 Impressions: Foot X-Ray 01/20/19 14:45 IMPRESSION: Likely Achilles tendinopathy. No acute abnormality. KUB X-Ray 01/25/19 18:04 IMPRESSION: Nonobstructive bowel gas pattern. Moderate colonic stool load. copyright 2010 [employer]- All Rights Reserved Qualifiers - * PATIENT BEING DISCHARGED WITH ANY OF THE FOLLOWING DIAGNOSIS: No Acute Heart Failure Is this a Heart Failure Patient?: No
[2019-01-28 16:18] VITALS: BP 111/47
== END 2019-01-28 17:30 | DRG 593 ==
LOC: ER 14:06 → EH 17:58 → 4N 20:45
PROVIDERS: ADMIT Internal Medicine; ATTEND Internal Medicine
DX: L89.613 Pressure ulcer of right heel, stage 3 (principal); N17.9 Acute kidney failure, unspecified; G82.20 Paraplegia, unspecified; L89.152 Pressure ulcer of sacral region, stage 2; Z60.2 Problems related to living alone; C50.911 Malignant neoplasm of unspecified site of right female breast; R91.1 Solitary pulmonary nodule; D63.8 Anemia in other chronic diseases classified elsewhere; B96.20 Unspecified Escherichia coli [E. coli] as the cause of diseases classified elsewhere; B95.61 Methicillin susceptible Staphylococcus aureus infection as the cause of diseases classified elsewhere; Z16.12 Extended spectrum beta lactamase (ESBL) resistance
CPT/HCPCS: 36415; 74018; 80053; 80061; 80307; 81001; 82550; 82553; 82607; 82728; 82746; 83036; 83540; 83550; 83605; 83735; 84484; 85025; 85045; 85610; 85652; 86140; 87040; 87070; 87077; 87086; 87186; 87205; 93005; 99285; J2405; J2543; J2550; J3370; J3490; J7030; J7050; J7060

== ENCOUNTER 2019-06-16 09:16 | Observation (INO) | payer BC, MEDICARE ==
--- NOTE | 2019-06-16 09:26 | ER Document Report ---
ED General - General Chief Complaint: Nausea Stated Complaint: NAUSEA Time Seen by Provider: 06/16/19 09:26 Primary Care Provider: FLO MITCHELL DO [NO LOCAL MD] - Follow up as needed TRAVEL OUTSIDE OF THE [place] IN LAST 30 DAYS: No - HPI Patient complains to provider of: Nausea vomiting Notes: 68-year-old paraplegic presents with nausea and vomiting for the past 5 days. Patient has a slow to heal sacral decubitus ulcer with recent debridement. Has been on multiple antibiotics. Denies fever chills. She also endorses decreased urinary output. - Related Data Allergies/Adverse Reactions: No Known Allergies Allergy (Verified 03/29/19 13:50) Past Medical History - Social History Smoking Status: Unknown if Ever Smoked Family History: Hypertension - Past Medical History Cardiac Medical History: Denies: Hx Coronary Artery Disease, Hx Heart Attack, Hx Hypertension Pulmonary Medical History: Denies: Hx Asthma, Hx Bronchitis, Hx COPD, Hx Pneumonia Neurological Medical History: Denies: Hx Cerebrovascular Accident, Hx Seizures Renal/ Medical History: Denies: Hx Peritoneal Dialysis Malignancy Medical History: Reports: Hx Breast Cancer Musculoskeletal Medical History: Denies Hx Arthritis Psychiatric Medical History: Reports: Hx Anxiety, Hx Depression Past Surgical History: Reports: Hx Appendectomy, Hx Breast Surgery - lumpectomy, Hx Hysterectomy, Hx Neurologic Surgery - spinal stimulator 08/10/2018, Hx Orthopedic Surgery - L knee, Other - Spinal stimulator September 2018 with subsequent removal - Immunizations Hx Diphtheria, Pertussis, Tetanus Vaccination: Yes Review of Systems - Review of Systems Notes: REVIEW OF SYSTEMS: CONSTITUTIONAL: -fevers, -chills EENT: -eye pain, -difficulty swallowing, -nasal congestion CARDIOVASCULAR: -chest pain, -syncope. RESPIRATORY: -cough, -SOB GASTROINTESTINAL: Positive for nausea and vomiting denies abdominal pain. GENITOURINARY: -dysuria, -hematuria MUSCULOSKELETAL: -back pain, -neck pain SKIN: -rash or skin lesions. HEMATOLOGIC: -easy bruising or bleeding. LYMPHATIC: -swollen, enlarged glands. NEUROLOGICAL: -altered mental status or loss of consciousness, -headache, - neurologic symptoms PSYCHIATRIC: -anxiety, -depression. ALL OTHER SYSTEMS REVIEWED AND NEGATIVE. Physical Exam - Vital signs Vitals: Temp Resp BP Pulse Ox 97.7 F 16 113/64 98 06/16/19 09:47 06/16/19 09:47 06/16/19 09:47 06/16/19 09:47 - Notes Notes: PHYSICAL EXAMINATION: GENERAL: Well-appearing, well-nourished and in no acute distress. HEAD: Atraumatic, normocephalic. EYES: Pupils equal round and reactive to light, extraocular movements intact, sclera anicteric, conjunctiva are normal. ENT: nares patent, oropharynx clear without exudates. Moist mucous membranes. NECK: Normal range of motion, supple without lymphadenopathy LUNGS: Breath sounds clear to auscultation bilaterally and equal. No wheezes rales or rhonchi. HEART: Regular rate and rhythm without murmurs ABDOMEN: Soft, nontender, normoactive bowel sounds. No guarding, no rebound. No masses appreciated. EXTREMITIES: Obvious deformity patient is paraplegic below the waist.. PSYCH: Normal mood, normal affect. SKIN: Large sacral decubitus ulcer had recent debridement. Wound appears well- healed no purulent discharge or foul smell. Course - Re-evaluation Re-evalutation: 06/16/19 13:38 Unfortunate 68-year-old female with intractable nausea and vomiting for 5 days. Patient is a bedbound paraplegic. Patient has leukocytosis, signs of urinary tract infection. Patient given ample fluid resuscitation, antiemetics still not feeling well. Will be started on IV cefepime for UTI. Patient will be admitted to the hospital. Also consult social work to start arrange discharge planning for this ill-appearing female with multiple medical comorbidities. Patient's CAT scan abdomen pelvis unremarkable. Patient sacral decub chronic wounds appear noninfected. Will be admitted to the hospital - Vital Signs Vital signs: Temp Pulse Resp BP Pulse Ox 97.7 F 16 108/60 98 06/16/19 09:47 06/16/19 09:47 06/16/19 10:00 06/16/19 12:55 - Laboratory Result Diagrams: 06/16/19 08:30 06/16/19 08:30 Laboratory results interpreted by me: 06/16/19 06/16/19 06/16/19 08:30 08:30 09:43 WBC 12.3 H Hgb 11.3 L Hct 34.6 L RDW 16.1 H Plt Count 564 H Eos % (Auto) 16.8 H Absolute Eos (auto) 2.1 H Creatinine 0.48 L Alkaline Phosphatase 132 H Albumin 3.1 L Urine Protein 30 H Urine Ketones TRACE H Urine Blood SMALL H Ur Leukocyte Esterase LARGE H Discharge - Discharge Clinical Impression: Weakness UTI (urinary tract infection) Qualifiers: Urinary tract infection type: catheter-associated UTI Indwelling urinary catheter type: indwelling urethral catheter Encounter type: initial encounter Qualified Code(s): T83.511A - Infection and inflammatory reaction due to indwelling urethral catheter, initial encounter Disposition: ADMITTED INPATIENT Admitting Provider: Alecia (Hospitalist) Unit Admitted: Medical Floor Referrals: FLO MITCHELL DO [NO LOCAL MD] - Follow up as needed
[2019-06-16] MEDS ORDERED: NORMAL SALINE 1000 ML 1,000 ML IV ONE (09:30)
[2019-06-16] MEDS ORDERED: ONDANSETRON HCL INJ/PF 4 MG/2 ML SDV IV ONE (09:30)
[2019-06-16 09:38] LABS: ABSOLUTE BASOPHILS # (AUTO) 0.1 10^3/uL (0.0-0.2); ABSOLUTE EOSINOPHILS # (AUTO) 2.1 10^3/uL (0.0-0.6); ABSOLUTE LYMPHOCYTES (AUTO) 2.9 10^3/uL (0.5-4.7); ABSOLUTE MONOCYTES (AUTO) 0.6 10^3/uL (0.1-1.4); ABSOLUTE NEUT (AUTO) 6.7 10^3/uL (1.7-8.2); BASOPHILS % (AUTO) 0.5 % (0-2); EOSINOPHILS % (AUTO) 16.8 % (0-6); HEMATOCRIT 34.6 % (36.0-47.0); HEMOGLOBIN 11.3 g/dL (12.0-15.5); LYMPHOCYTES % (AUTO) 23.7 % (13-45); MEAN CORPUSCULAR HEMOGLOBIN 27.3 pg (27.0-33.4); MEAN CORPUSCULAR HGB CONC 32.6 g/dL (32.0-36.0); MEAN CORPUSCULAR VOLUME 84 fl (80-97); MONOCYTES % (AUTO) 4.6 % (3-13); PLATELET COUNT 564 10^3/uL (150-450); RED BLOOD COUNT 4.13 10^6/uL (3.72-5.28); RED CELL DISTRIBUTION WIDTH 16.1 % (11.5-14.0); SEGMENTED NEUTROPHILS % (AUTO) 54.4 % (42-78); TOTAL CELLS COUNTED % (AUTO) 100 %; WHITE BLOOD COUNT 12.3 10^3/uL (4.0-10.5)
[2019-06-16 09:59] LABS: ALBUMIN 3.1 g/dL (3.5-5.0); ALKALINE PHOSPHATASE 132 U/L (38-126); ANION GAP 12 (5-19); ASPARTATE AMINO TRANSFERASE 16 U/L (14-36); BILIRUBIN,DIRECT 0.3 mg/dL (0.0-0.4); BILIRUBIN,TOTAL 0.4 mg/dL (0.2-1.3); BLOOD UREA NITROGEN 18 mg/dL (7-20); CALCIUM 10.1 mg/dL (8.4-10.2); CARBON DIOXIDE 25 mmol/L (22-30); CHLORIDE 101 mmol/L (98-107); GLUCOSE 80 mg/dL (75-110); TOTAL PROTEIN 6.6 g/dL (6.3-8.2)
--- NOTE | 2019-06-16 12:45 | RADIOLOGY REPORT (SQ) ---
EXAM DESCRIPTION: CT ABD/PELVIS WITH IV ONLY COMPLETED DATE/TIME: 06/16/2019 11:04 am REASON FOR STUDY: nausea and vomi COMPARISON: CT pelvis 03/29/2019 CT abdomen pelvis 11/15/2018 PET-CT 04/11/2016 TECHNIQUE: CT scan of the abdomen and pelvis performed using helical scanning technique with dynamic intravenous contrast injection. No oral contrast. Images reviewed with lung, soft tissue, and bone windows. Reconstructed coronal and sagittal MPR images reviewed. Delayed images for evaluation of the urinary system also acquired. All images stored on PACS. All CT scanners at this facility use dose modulation, iterative reconstruction, and/or weight based d osing when appropriate to reduce radiation dose to as low as reasonably achievable (ALARA). [facility]: Dose Right [facility]: CareDose [facility]: Dose Right [facility]: Teradose 4D [facility]: VIOSO CONTRAST TYPE AND DOSE: contrast/concentration: Isovue 350.00 mg/ml; Total Contrast Delivered: 59.0 ml; Total Saline Delivered: 65.0 ml RENAL FUNCTION: Creatinine 0.5 RADIATION DOSE: CT Rad equipment meets quality standard of care and radiation dose reduction techniq ues were employed. CTDIvol: 9.9 - 14.3 mGy. DLP: 1245 mGy-cm.. LIMITATIONS: None. FINDINGS: LOWER CHEST: Minimal bibasilar atelectasis LIVER: Normal size. No masses. No dilated ducts. SPLEEN: Normal size. No focal lesions. PANCREAS: No masses. No significant calcifications. No adjacent inflammation or peripancreatic fluid collections. Pancreatic duct not dilated. GALLBLADDER: No identified stones by CT criteria. No inflammatory changes to suggest cholecystitis. ADRENAL GLANDS: No significant masses or asymmetry. RIGHT KIDNEY AND URETER: No solid masses. No significant calcifications. No hydronephrosis or hyd roureter. LEFT KIDNEY AND URETER: No solid masses. No significant calcifications. No hydronephrosis or hydr oureter. AORTA AND VESSELS: No aneurysm. No dissection. Renal arteries, SMA, celiac without stenosis. RETROPERITONEUM: No retroperitoneal adenopathy, hemorrhage or masses. BOWEL AND PERITONEAL CAVITY: No masses or inflammatory changes. No free fluid or peritoneal masses. APPENDIX: Not identified. No right lower quadrant inflammatory change PELVIS: Matthews catheter drains the bladder. Post hysterectomy. Large amount of stool in the rectum. Stable sacral and right ischial decubitus ulcers compared to CT pelvis 03/29/2019 ABDOMINAL WALL: No masses. No hernias. BONES: No acute findings. Stable right ischial and sacral decubitus ulcers as compared to 03/29/2019 OTHER: No other significant finding. IMPRESSION: Bibasilar atelectasis. Moderate stool in the rectosigmoid. Post hysterectomy Stable right ischial and sacral decubitus ulcers TECHNICAL DOCUMENTATION: JOB ID: [id number] Quality ID # [id number]: Final reports with documentation of one or more dose reduction techniques (e.g., Au tomated exposure control, adjustment of the mA and/or kV according to patient size, use of iterative reconstruction technique) 2010 [employer]- All Rights Reserved Reading location - IP/workstation name: [email or web address]
[2019-06-16 12:56] LABS: APPEARANCE,URINE CLOUDY; BILIRUBIN,URINE NEGATIVE (NEGATIVE); COLOR,URINE AMBER; GLUCOSE, URINE NEGATIVE (NEGATIVE); KETONES,URINE TRACE mg/dL (NEGATIVE); LEUKOCYTE ESTERASE,URINE LARGE (NEGATIVE); NITRITE,URINE NEGATIVE (NEGATIVE); PROTEIN,URINE 30 mg/dL (NEGATIVE); URINE SPECIFIC GRAVITY 1.018; UROBILINOGEN,URINE NEGATIVE mg/dL (<2.0)
[2019-06-16] MEDS: CEFEPIME 2 GM/D5W RTU 2 GM/50 ML RTUPB IV SCH ×2 (13:35→14:02)
[2019-06-16] MEDS ORDERED: NA PHOS,M-B/NA PHOS,DI-BA (ADULT) 133 ML ENEMA PR ONE (14:07)
[2019-06-16] MEDS: NORMAL SALINE 1000 ML 1,000 ML IV PRN (18:16)
[2019-06-16] MEDS: ONDANSETRON HCL INJ/PF 4 MG/2 ML SDV IV PRN (18:23)
[2019-06-16] MEDS ORDERED: ALPRAZOLAM 0.5 MG TABLET PO ONE (22:15)
[2019-06-16] MEDS: HEPARIN SOD (PORCINE) 5,000 UNIT/ML 1 ML VIAL SUBCUT SCH (22:24)
[2019-06-17] MEDS: HEPARIN SOD (PORCINE) 5,000 UNIT/ML 1 ML VIAL SUBCUT SCH ×3 (05:36→21:50)
[2019-06-17] MEDS: NORMAL SALINE 1000 ML 1,000 ML IV PRN ×2 (05:37→19:49)
[2019-06-17] MEDS: ONDANSETRON HCL INJ/PF 4 MG/2 ML SDV IV PRN (05:45)
[2019-06-17] MEDS ORDERED: INFLUENZA QUAD (6MOS+) 2019-20 VAC 0.5 ML SYR IM ONE (08:00)
--- NOTE | 2019-06-17 10:28 | PDOC H&P ---
History of Present Illness Admission Date/PCP: 06/16/19 13:52 History of Present Illness: PARESH FRANCISCO is a 68 year old female with paraplegia after having a spinal stimulator placed who takes chronic pain medication who comes in with 5 days of nausea and occasional vomiting. Her main complaint is just overall not feeling well. It started a couple of days after her last bowel movement. She says that on Thursday of this week, about 4 5 days ago, she started having not pain but rath er an unpleasant sensation in her belly and she started feeling a little nauseated. She has not had a bowel movement since the end of last week. She is chronically bedbound and when she does get around its in a wheelchair and as stated above she takes chronic narcotics. She does not take a stool softener at home. She has 2 sacral pressure sores that are present on admission are getting local wound care. She always has a little bit of a chronically elevated white blood cell count as a result. She does not complain of any dysuria. She has not had any fevers. She has a chronic indwelling Matthews. Her urinalysis always looks dirty. Her abdominal CT was unremarkable except for moderately large stool burden. She is being admitted for a bowel regimen and antiemetics. Past Medical History Cardiac Medical History: Denies: Coronary Artery Disease, Myocardial Infarction, Hypertension Pulmonary Medical History: Denies: Asthma, Bronchitis, Chronic Obstructive Pulmonary Disease (COPD), Pneumonia Neurological Medical History: Denies: Seizures Malignancy Medical History: Reports: Breast Cancer Musculoskeltal Medical History: Denies: Arthritis Psychiatric Medical History: Reports: Depression Hematology: Denies: Anemia Past Surgical History Past Surgical History: Reports: Appendectomy, Hysterectomy, Orthopedic Surgery - L knee, Other - Spinal stimulator September 2018 with subsequent removal Social History Smoking Status: Unknown if Ever Smoked Frequency of Alcohol Use: None Hx Recreational Drug Use: No Drugs: None Hx Prescription Drug Abuse: No Family History Family History: Hypertension Parental Family History Reviewed: Yes Children Family History Reviewed: Yes Sibling(s) Family History Reviewed.: Yes Medication/Allergy Home Medications: Anastrozole [Arimidex 1 mg Tablet] 1 mg PO DAILY 08/10/18 Alprazolam [Xanax 0.5 mg Tablet] 0.5 mg PO TIDP PRN 03/29/19 Duloxetine HCl [Cymbalta 30 mg Capsule.dr] 30 mg PO DAILY 06/17/19 Allergies/Adverse Reactions: No Known Allergies Allergy (Verified 03/29/19 13:50) Review of Systems All systems: reviewed and no additional remarkable complaints except as stated - All systems reviewed and were negative except as noted in the HPI Physical Exam Vital Signs: Temp Pulse Resp BP Pulse Ox 97.5 F 88 16 110/56 L 96 06/17/19 07:34 06/17/19 07:34 06/17/19 07:34 06/17/19 07:34 06/17/19 07:34 Intake & Output 06/16/19 06/17/19 06/18/19 06:59 06:59 06:59 Intake Total 2071 Output Total 1000 Balance 1071 Weight 53.2 kg General appearance: PRESENT: no acute distress, cooperative, disheveled Head exam: PRESENT: atraumatic, normocephalic Eye exam: PRESENT: EOMI, PERRLA. ABSENT: conjunctival injection, nystagmus, scleral icterus Ear exam: PRESENT: normal external ear exam Mouth exam: PRESENT: dry mucosa, neck supple Throat exam: ABSENT: post pharyngeal erythema Neck exam: PRESENT: full ROM. ABSENT: carotid bruit, JVD, lymphadenopathy, meningismus, tenderness, thyromegaly Respiratory exam: PRESENT: clear to auscultation sujey, symmetrical, unlabored. ABSENT: accessory muscle use, chest wall tenderness, crackles, prolonged expiratory phas, rhonchi, tachypnea, wheezes Cardiovascular exam: PRESENT: RRR, +S1, +S2 Pulses: PRESENT: normal carotid pulses Vascular exam: PRESENT: normal capillary refill GI/Abdominal exam: PRESENT: normal bowel sounds, soft. ABSENT: distended, guarding, rebound, tenderness Extremities exam: ABSENT: clubbing, pedal edema Musculoskeletal exam: PRESENT: normal inspection. ABSENT: ambulatory, deformity Neurological exam: PRESENT: alert, awake, oriented to person, oriented to place, oriented to situation, CN II-XII grossly intact, motor sensory deficit - She has minimal if any movement in her lower extremities which is chronic Psychiatric exam: PRESENT: flat affect Skin exam: PRESENT: dry, warm Results Laboratory Results: 06/16/19 08:30 06/16/19 08:30 06/16/19 09:43 Urine Color ANA Urine Appearance CLOUDY Urine pH 6.0 Ur Specific Farrell 1.018 Urine Protein 30 H Urine Glucose (UA) NEGATIVE Urine Ketones TRACE H Urine Blood SMALL H Urine Nitrite NEGATIVE Ur Leukocyte Esterase LARGE H Urine WBC (Auto) >182 Urine RBC (Auto) 33 Impressions: Abdomen/Pelvis CT 06/16/19 10:17 IMPRESSION: Bibasilar atelectasis. Moderate stool in the rectosigmoid. Post hysterectomy Stable right ischial and sacral decubitus ulcers Assessment and Plan - Diagnosis (1) Constipation due to opioid therapy Is this a current diagnosis for this admission?: Yes Plan: Given enema and what she is able to take p.o. we will give her her bowel regimen (2) Paraplegia Is this a current diagnosis for this admission?: Yes Plan: Chronic, will do local wound care for her wounds and will turn her every couple of hours (3) Nausea & vomiting Qualifiers: Vomiting type: unspecified Vomiting Intractability: non-intractable Qualified Code(s): R11.2 - Nausea with vomiting, unspecified Is this a current diagnosis for this admission?: Yes Plan: Due to her constipation, will give antiemetics anticipate will resolve with colonic decompression (4) Sacral decubitus ulcer, stage II Is this a current diagnosis for this admission?: Yes Plan: Present on admission, local wound care continued (5) Sacral decubitus ulcer, stage IV Is this a current diagnosis for this admission?: Yes Plan: Present on admission, local wound care continued
[2019-06-17] MEDS: LACTULOSE SYRUP 20 GM/30 ML UDCUP PO SCH ×2 (12:08→18:19)
[2019-06-17] MEDS: ALPRAZOLAM 0.5 MG TABLET PO PRN ×2 (12:23→18:19)
--- NOTE | 2019-06-17 17:02 | PDOC PROGRESS REPORT ---
Subjective Progress Note for:: 06/17/19 Subjective:: No adverse events overnight. No new complaints. Vital signs been stable. She had a enema yesterday and had some relief in her nausea is a little bit better today. She is able to take liquids by mouth without vomiting. Reason For Visit: N & V, CONSTIPATION Physical Exam Vital Signs: Temp Pulse Resp BP Pulse Ox 97.5 F 88 16 110/56 L 96 06/17/19 07:34 06/17/19 07:34 06/17/19 07:34 06/17/19 07:34 06/17/19 07:34 Intake & Output 06/16/19 06/17/19 06/18/19 06:59 06:59 06:59 Intake Total 2071 Output Total 1000 Balance 1071 Weight 53.2 kg General appearance: PRESENT: no acute distress, cooperative, disheveled Respiratory exam: PRESENT: clear to auscultation sujey, symmetrical, unlabored. ABSENT: accessory muscle use, chest wall tenderness, crackles, prolonged expiratory phas, rhonchi, tachypnea, wheezes Cardiovascular exam: PRESENT: RRR, +S1, +S2 Pulses: PRESENT: normal carotid pulses Vascular exam: PRESENT: normal capillary refill GI/Abdominal exam: PRESENT: normal bowel sounds, soft. ABSENT: distended, guarding, rebound, tenderness Extremities exam: ABSENT: clubbing, pedal edema Musculoskeletal exam: PRESENT: normal inspection. ABSENT: ambulatory, deformity Neurological exam: PRESENT: alert, awake, oriented to person, oriented to place, oriented to situation Psychiatric exam: PRESENT: flat affect Skin exam: PRESENT: dry, warm Results Laboratory Results: 06/16/19 08:30 06/16/19 08:30 Impressions: Abdomen/Pelvis CT 06/16/19 10:17 IMPRESSION: Bibasilar atelectasis. Moderate stool in the rectosigmoid. Post hysterectomy Stable right ischial and sacral decubitus ulcers Assessment and Plan - Diagnosis (1) Constipation due to opioid therapy Is this a current diagnosis for this admission?: Yes Plan: She has had some relief with enema and is able to tolerate p.o. a little bit today, so we are going to add a schedule of lactulose (2) Paraplegia Is this a current diagnosis for this admission?: Yes Plan: Chronic, will do local wound care for her wounds and will turn her every couple of hours (3) Nausea & vomiting Qualifiers: Vomiting type: unspecified Vomiting Intractability: non-intractable Qual ified Code(s): R11.2 - Nausea with vomiting, unspecified Is this a current diagnosis for this admission?: Yes Plan: Improved after enema, will try to give her an oral bowel regimen to look for continued improvement (4) Sacral decubitus ulcer, stage II Is this a current diagnosis for this admission?: Yes Plan: Present on admission, local wound care continued (5) Sacral decubitus ulcer, stage IV Is this a current diagnosis for this admission?: Yes Plan: Present on admission, local wound care continued - Time Time Spent with patient: 15-24 minutes
[2019-06-18] MEDS: LACTULOSE SYRUP 20 GM/30 ML UDCUP PO SCH ×5 (01:48→23:30)
[2019-06-18] MEDS: HEPARIN SOD (PORCINE) 5,000 UNIT/ML 1 ML VIAL SUBCUT SCH ×3 (05:08→21:26)
[2019-06-18] MEDS: ACETAMINOPHEN 325 MG TABLET PO PRN ×2 (05:08→21:26)
[2019-06-18] MEDS: ALPRAZOLAM 0.5 MG TABLET PO PRN ×2 (05:16→14:13)
[2019-06-18] MEDS: DULOXETINE HCL 30 MG CAPSULE.DR PO SCH (09:38)
[2019-06-18] MEDS: ANASTROZOLE 1 MG TABLET PO SCH (09:39)
[2019-06-18] MEDS: NORMAL SALINE 1000 ML 1,000 ML IV PRN ×2 (10:50→22:57)
[2019-06-18] MEDS: ONDANSETRON HCL INJ/PF 4 MG/2 ML SDV IV PRN ×2 (12:39→21:25)
--- NOTE | 2019-06-18 13:59 | PDOC PROGRESS REPORT ---
Subjective Progress Note for:: 06/18/19 Reason For Visit: N & V, CONSTIPATION Physical Exam Vital Signs: Temp Pulse Resp BP Pulse Ox 97.5 F 75 15 126/61 H 98 06/18/19 07:42 06/18/19 11:41 06/18/19 11:41 06/18/19 11:41 06/18/19 11:41 Intake & Output 06/17/19 06/18/19 06/19/19 06:59 06:59 06:59 Intake Total 2071 1220 1000 Output Total 1000 620 Balance 8703 664 5012 Weight 53.2 kg 54.2 kg General appearance: PRESENT: no acute distress, cooperative, disheveled Respiratory exam: PRESENT: clear to auscultation sujey, symmetrical, unlabored. ABSENT: accessory muscle use, chest wall tenderness, crackles, prolonged expiratory phas, rhonchi, tachypnea, wheezes Cardiovascular exam: PRESENT: RRR, +S1, +S2 Pulses: PRESENT: normal carotid pulses Vascular exam: PRESENT: normal capillary refill GI/Abdominal exam: PRESENT: normal bowel sounds, soft. ABSENT: distended, guarding, rebound, tenderness Extremities exam: ABSENT: clubbing, pedal edema Musculoskeletal exam: PRESENT: normal inspection. ABSENT: ambulatory, deformity Neurological exam: PRESENT: alert, awake, oriented to person, oriented to place, oriented to situation Psychiatric exam: PRESENT: flat affect Skin exam: PRESENT: dry, warm Results Laboratory Results: 06/16/19 08:30 06/16/19 08:30 Impressions: Abdomen/Pelvis CT 06/16/19 10:17 IMPRESSION: Bibasilar atelectasis. Moderate stool in the rectosigmoid. Post hysterectomy Stable right ischial and sacral decubitus ulcers Assessment and Plan - Diagnosis (1) Constipation due to opioid therapy Is this a current diagnosis for this admission?: Yes Plan: Resolved. She responded to enema and she is not nauseated anymore. She is only eaten a banana today and would like for a little bit better before she goes home. Keeping her to be sure that she will eat well enough because she is a high risk of readmission. (2) Paraplegia Is this a current diagnosis for this admission?: Yes Plan: Chronic, will do local wound care for her wounds and will turn her every couple of hours (3) Nausea & vomiting Qualifiers: Vomiting type: unspecified Vomiting Intractability: non-intractable Qualified Code(s): R11.2 - Nausea with vomiting, unspecified Is this a current diagnosis for this admission?: Yes Plan: Resolved (4) Sacral decubitus ulcer, stage II Is this a current diagnosis for this admission?: Yes Plan: Present on admission, local wound care continued (5) Sacral decubitus ulcer, stage IV Is this a current diagnosis for this admission?: Yes Plan: Present on admission, local wound care continued - Time Time Spent with patient: 15-24 minutes
[2019-06-18] MEDS ORDERED: BISACODYL 5 MG TABEC PO ONE (15:45)
[2019-06-19] MEDS: LACTULOSE SYRUP 20 GM/30 ML UDCUP PO SCH ×2 (05:14→12:11)
[2019-06-19] MEDS: HEPARIN SOD (PORCINE) 5,000 UNIT/ML 1 ML VIAL SUBCUT SCH ×3 (05:14→21:37)
[2019-06-19] MEDS: ONDANSETRON HCL INJ/PF 4 MG/2 ML SDV IV PRN ×4 (05:17→22:03)
[2019-06-19] MEDS: ALPRAZOLAM 0.5 MG TABLET PO PRN ×3 (05:20→22:03)
[2019-06-19] MEDS: ANASTROZOLE 1 MG TABLET PO SCH (11:04)
[2019-06-19] MEDS: DULOXETINE HCL 30 MG CAPSULE.DR PO SCH (11:04)
[2019-06-19] MEDS: NORMAL SALINE 1000 ML 1,000 ML IV PRN ×2 (12:12→21:38)
--- NOTE | 2019-06-19 12:40 | PDOC PROGRESS REPORT ---
Subjective Progress Note for:: 06/19/19 Subjective:: No adverse events overnight. No new complaints. Vital signs been stable. She had a large bowel movement this morning. Her appetite is still not very good but she has not been throwing up. Reason For Visit: N & V, CONSTIPATION Physical Exam Vital Signs: Temp Pulse Resp BP Pulse Ox 97.5 F 95 16 107/62 97 06/19/19 08:40 06/19/19 08:40 06/19/19 08:40 06/19/19 08:40 06/19/19 08:40 Intake & Output 06/18/19 06/19/19 06/20/19 06:59 06:59 06:59 Intake Total 1220 2265 994 Output Total 620 1650 Balance 600 615 994 Weight 54.2 kg 64.9 kg General appearance: PRESENT: no acute distress, cooperative, disheveled Respiratory exam: PRESENT: clear to auscultation sujey, symmetrical, unlabored. ABSENT: accessory muscle use, chest wall tenderness, crackles, prolonged expiratory phas, rhonchi, tachypnea, wheezes Cardiovascular exam: PRESENT: RRR, +S1, +S2 Pulses: PRESENT: normal carotid pulses Vascular exam: PRESENT: normal capillary refill GI/Abdominal exam: PRESENT: normal bowel sounds, soft. ABSENT: distended, guarding, rebound, tenderness Extremities exam: ABSENT: clubbing, pedal edema Musculoskeletal exam: PRESENT: normal inspection. ABSENT: ambulatory, deformity Neurological exam: PRESENT: alert, awake, oriented to person, oriented to place, oriented to situation Psychiatric exam: PRESENT: flat affect Skin exam: PRESENT: dry, warm. She has 2 pressure wounds, the one on the sacrum is approximately 6 x 8 cm, one over right ischium is approximately 3 x 4 cm. Both of them have no exudates or surrounding erythema. Both have granulation tissue in the wound beds. Results Laboratory Results: 06/16/19 08:30 06/16/19 08:30 06/16/19 09:43 Coccyx - Decubitis Ulcer Gram Stain - Final Impressions: Abdomen/Pelvis CT 06/16/19 10:17 IMPRESSION: Bibasilar atelectasis. Moderate stool in the rectosigmoid. Post hysterectomy Stable right ischial and sacral decubitus ulcers Assessment and Plan - Diagnosis (1) Constipation due to opioid therapy Is this a current diagnosis for this admission?: Yes Plan: Now resolved. She should have an improvement in her appetite at this point. No evidence of infection. (2) Paraplegia Is this a current diagnosis for this admission?: Yes Plan: Chronic, will do local wound care for her wounds and will turn her every couple of hours (3) Nausea & vomiting Qualifiers: Vomiting type: unspecified Vomiting Intractability: non-intractable Qualified Code(s): R11.2 - Nausea with vomiting, unspecified Is this a current diagnosis for this admission?: Yes Plan: Resolved. Now she just has a poor appetite but is able to take some liquids and some food without getting sick to her stomach. (4) Sacral decubitus ulcer, stage II Is this a current diagnosis for this admission?: Yes Plan: Present on admission, local wound care continued (5) Sacral decubitus ulcer, stage IV Is this a current diagnosis for this admission?: Yes Plan: Present on admission, local wound care continued - Plan Summary Summary: Once she is eating a little bit better she can go home and continue home health for wound care. She does not want to go to a facility. - Time Time Spent with patient: 15-24 minutes
[2019-06-19] MEDS: ACETAMINOPHEN 325 MG TABLET PO PRN (13:44)
[2019-06-20] MEDS: HEPARIN SOD (PORCINE) 5,000 UNIT/ML 1 ML VIAL SUBCUT SCH ×3 (06:07→21:37)
[2019-06-20] MEDS: ONDANSETRON HCL INJ/PF 4 MG/2 ML SDV IV PRN ×2 (06:07→11:30)
[2019-06-20] MEDS: ALPRAZOLAM 0.5 MG TABLET PO PRN ×2 (06:08→15:22)
[2019-06-20] MEDS: DULOXETINE HCL 30 MG CAPSULE.DR PO SCH (09:25)
[2019-06-20] MEDS: ANASTROZOLE 1 MG TABLET PO SCH (09:28)
[2019-06-20] MEDS: ACETAMINOPHEN 325 MG TABLET PO PRN (11:24)
--- NOTE | 2019-06-20 15:00 | PDOC PROGRESS REPORT ---
Subjective Progress Note for:: 06/20/19 Subjective:: The patient feels that she is back to baseline. She still has 2 large ulcers one on the sacral area and one on the right buttock. The VAC was discontinued and is no longer at the home. We will use saline dressings at this time. In anticipation of discharge 12 asked that an appointment be made at the wound care clinic for Thursday and arrangements for home health, etc. Reason For Visit: N & V, CONSTIPATION Physical Exam Vital Signs: Temp Pulse Resp BP Pulse Ox 97.8 F 85 18 122/64 97 06/20/19 11:47 06/20/19 11:47 06/20/19 11:47 06/20/19 11:47 06/20/19 11:47 Intake & Output 06/19/19 06/20/19 06/21/19 06:59 06:59 06:59 Intake Total 2265 2138 120 Output Total 1650 1400 425 Balance 615 738 -305 Weight 64.9 kg 69.6 kg 69.6 kg General appearance: PRESENT: no acute distress, cooperative, well-developed Head exam: PRESENT: atraumatic, normocephalic Respiratory exam: PRESENT: clear to auscultation sujey, symmetrical, unlabored. ABSENT: rales, rhonchi, tachypnea, wheezes Cardiovascular exam: PRESENT: RRR, +S1, +S2 GI/Abdominal exam: PRESENT: normal bowel sounds, soft. ABSENT: distended, tenderness Rectal exam: PRESENT: deferred Gentrourinary exam: PRESENT: indwelling catheter Extremities exam: ABSENT: pedal edema Musculoskeletal exam: ABSENT: ambulatory - Bilateral lower extremity paralysis Neurological exam: PRESENT: alert, awake, oriented to person, oriented to place, oriented to time, oriented to situation, CN II-XII grossly intact Psychiatric exam: PRESENT: flat affect. ABSENT: agitated, anxious Skin exam: PRESENT: other - Large sacral ulcer and smaller deeper right buttock ulcer. Saline gauze packing removed. There is good granulation tissue in both. There is a small amount of macerated skin along the periphery at approximately 7 o'clock position. The right buttock lesion is much smaller in diameter but deeper. Excellent granulation tissue was observed in both areas. Adult Front & Back Image: 1 - Sacral ulcer 2 - Buttock ulcer Results Laboratory Results: 06/16/19 08:30 06/16/19 08:30 06/16/19 09:43 Coccyx - Decubitis Ulcer Gram Stain - Final 06/16/19 09:43 Coccyx - Decubitis Ulcer Wound Culture - Final Pseudomonas Aeruginosa Acinetobacter Baumannii/Haem Group G Beta Streptococcus Peptostreptococcus Species Impressions: Abdomen/Pelvis CT 06/16/19 10:17 IMPRESSION: Bibasilar atelectasis. Moderate stool in the rectosigmoid. Post hysterectomy Stable right ischial and sacral decubitus ulcers Assessment and Plan - Diagnosis (1) Constipation due to opioid therapy Is this a current diagnosis for this admission?: Yes Plan: 06/20/2019-the patient would benefit from Linzess or Relistor. Will prescribe at discharge. (2) Paraplegia Is this a current diagnosis for this admission?: Yes Plan: 06/20/2019-chronic condition from complications of a deep brain stimulator in the past. Will order home health at discharge. (3) Nausea & vomiting Qualifiers: Vomiting type: unspecified Vomiting Intractability: non-intractable Qualified Code(s): R11.2 - Nausea with vomiting, unspecified Is this a current diagnosis for this admission?: Yes Plan: 06/20/2019-no further vomiting. Continue as needed medications. (4) Decubitus ulcer of right buttock, stage 4 Is this a current diagnosis for this admission?: Yes Plan: 06/20/2019-continue saline dressings. Set up follow-up appointment at the wound care center. The patient was on negative pressure therapy previously. (5) Sacral decubitus ulcer, stage IV Is this a current diagnosis for this admission?: Yes Plan: 06/20/2019-continue saline dressings. Scheduled follow-up appointment at wound care center. - Plan Summary Summary: Once she is eating a little bit better she can go home and continue home health for wound care. She does not want to go to a facility. - Time Time Spent with patient: 15-24 minutes Medications reviewed and adjusted accordingly: Yes Anticipated discharge: Home with Homehealth Within: within 24 hours
[2019-06-21] MEDS: HEPARIN SOD (PORCINE) 5,000 UNIT/ML 1 ML VIAL SUBCUT SCH (05:52)
[2019-06-21] MEDS: ALPRAZOLAM 0.5 MG TABLET PO PRN (05:56)
[2019-06-21] MEDS: NORMAL SALINE 1000 ML 1,000 ML IV PRN (06:11)
[2019-06-21 08:32] VITALS: BP 123/72
--- NOTE | 2019-06-21 09:19 | PDOC DISCHARGE SUMMARY ---
Impression - Admit/DC Date/PCP Admission Date/Primary Care Provider: 06/16/19 13:52 Discharge Date: 06/21/19 - Discharge Diagnosis (1) Constipation due to opioid therapy Is this a current diagnosis for this admission?: Yes (2) Paraplegia Is this a current diagnosis for this admission?: Yes (3) Nausea & vomiting Is this a current diagnosis for this admission?: Yes (4) Decubitus ulcer of right buttock, stage 4 Is this a current diagnosis for this admission?: Yes (5) Sacral decubitus ulcer, stage IV Is this a current diagnosis for this admission?: Yes - Assessment Summary: Once she is eating a little bit better she can go home and continue home health for wound care. She does not want to go to a facility. - Additional Information Discharge Diet: Regular Discharge Activity: Other - Change positions every 2 hours to offload ulcers Referrals: WOUND CARE [Outside] - 06/24/19 3:00 pm FLO MITCHELL DO [NO LOCAL MD] - 07/05/19 1:15 pm ([facility]. 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 She had 5 days of nausea and vomiting prior to admission. She reported that she was not feeling well. She has not had a bowel movement in several days. She is on chronic narcotic therapy for pain. She also has to stage IV decubitus ulcers one on the sacrum and one on the right buttock. She had an elevated white blood cell count and was referred to the hospital service for admission for IV fluids and ongoing wound care. Hospital Course Hospital Course: The patient had a relatively unremarkable hospital course. Conservative wound care with moist saline gauze dressings worked very well and she has good granulation tissue present. She received some IV fluids but did not require antibiotic therapy. Her nausea and vomiting settled in her constipation was relieved. Her oral intake has improved and she will return home with home health services. Physical Exam Vital Signs: Temp Pulse Resp BP Pulse Ox 98.2 F 98 17 123/72 97 06/21/19 08:00 06/21/19 08:00 06/21/19 08:00 06/21/19 08:00 06/21/19 08:00 Intake & Output 06/20/19 06/21/19 06/22/19 06:59 06:59 06:59 Intake Total 2138 1380 Output Total 1400 2050 Balance 738 -670 Weight 69.6 kg 69.6 kg General appearance: PRESENT: no acute distress, cooperative, well-developed Head exam: PRESENT: atraumatic, normocephalic Respiratory exam: PRESENT: clear to auscultation sujey, symmetrical, unlabored. ABSENT: rales, rhonchi, tachypnea, wheezes Cardiovascular exam: PRESENT: RRR, +S1, +S2 GI/Abdominal exam: PRESENT: normal bowel sounds, soft. ABSENT: distended, tenderness Extremities exam: PRESENT: other Musculoskeletal exam: ABSENT: ambulatory Neurological exam: PRESENT: alert, awake, oriented to person, oriented to place, oriented to time, oriented to situation, CN II-XII grossly intact, motor sensory deficit - Paraplegia Psychiatric exam: PRESENT: flat affect. ABSENT: agitated, anxious Focused psych exam: ABSENT: delusional, restlessness Skin exam: PRESENT: other - Stage IV ulcers. Large wound on sacrum and smaller deeper one on right buttock Results Laboratory Results: WBC 12.3 10^3/uL (4.0-10.5) H 06/16/19 08:30 RBC 4.13 10^6/uL (3.72-5.28) 06/16/19 08:30 Hgb 11.3 g/dL (12.0-15.5) L 06/16/19 08:30 Hct 34.6 % (36.0-47.0) L 06/16/19 08:30 MCV 84 fl (80-97) 06/16/19 08:30 MCH 27.3 pg (27.0-33.4) 06/16/19 08:30 MCHC 32.6 g/dL (32.0-36.0) 06/16/19 08:30 RDW 16.1 % (11.5-14.0) H 06/16/19 08:30 Plt Count 564 10^3/uL (150-450) H 06/16/19 08:30 Lymph % (Auto) 23.7 % (13-45) 06/16/19 08:30 [place] % (Auto) 4.6 % (3-13) 06/16/19 08:30 Eos % (Auto) 16.8 % (0-6) H 06/16/19 08:30 Baso % (Auto) 0.5 % (0-2) 06/16/19 08:30 Absolute Neuts (auto) 6.7 10^3/uL (1.7-8.2) 06/16/19 08:30 Absolute Lymphs (auto) 2.9 10^3/uL (0.5-4.7) 06/16/19 08:30 Absolute Monos (auto) 0.6 10^3/uL (0.1-1.4) 06/16/19 08:30 Absolute Eos (auto) 2.1 10^3/uL (0.0-0.6) H 06/16/19 08:30 Absolute Basos (auto) 0.1 10^3/uL (0.0-0.2) 06/16/19 08:30 Seg Neutrophils % 54.4 % (42-78) 06/16/19 08:30 Sodium 137.8 mmol/L (137-145) 06/16/19 08:30 Potassium 4.0 mmol/L (3.6-5.0) 06/16/19 08:30 Chloride 101 mmol/L (98-107) 06/16/19 08:30 Carbon Dioxide 25 mmol/L (22-30) 06/16/19 08:30 Anion Gap 12 (5-19) 06/16/19 08:30 BUN 18 mg/dL (7-20) 06/16/19 08:30 Creatinine 0.48 mg/dL (0.52-1.25) L 06/16/19 08:30 Est GFR ( Amer) > 60 (>60) 06/16/19 08:30 Est GFR (MDRD) Non-Af > 60 (>60) 06/16/19 08:30 Glucose 80 mg/dL (75-110) 06/16/19 08:30 Calcium 10.1 mg/dL (8.4-10.2) 06/16/19 08:30 Total Bilirubin 0.4 mg/dL (0.2-1.3) 06/16/19 08:30 Direct Bilirubin 0.3 mg/dL (0.0-0.4) 06/16/19 08:30 Neonat Total Bilirubin Not Reportable 06/16/19 08:30 Neonat Direct Bilirubin Not Reportable 06/16/19 08:30 Neonat Indirect Bili Not Reportable 06/16/19 08:30 AST 16 U/L (14-36) 06/16/19 08:30 ALT 10 U/L (<35) 06/16/19 08:30 Alkaline Phosphatase 132 U/L (38-126) H 06/16/19 08:30 Total Protein 6.6 g/dL (6.3-8.2) 06/16/19 08:30 Albumin 3.1 g/dL (3.5-5.0) L 06/16/19 08:30 Urine Color ANA 06/16/19 09:43 Urine Appearance CLOUDY 06/16/19 09:43 Urine pH 6.0 (5.0-9.0) 06/16/19 09:43 Ur Specific [place] 1.018 06/16/19 09:43 Urine Protein 30 mg/dL (NEGATIVE) H 06/16/19 09:43 Urine Glucose (UA) NEGATIVE mg/dL (NEGATIVE) 06/16/19 09:43 Urine Ketones TRACE mg/dL (NEGATIVE) H 06/16/19 09:43 Urine Blood SMALL (NEGATIVE) H 06/16/19 09:43 Urine Nitrite NEGATIVE (NEGATIVE) 06/16/19 09:43 Urine Bilirubin NEGATIVE (NEGATIVE) 06/16/19 09:43 Urine Urobilinogen NEGATIVE mg/dL (<2.0) 06/16/19 09:43 Ur Leukocyte Esterase LARGE (NEGATIVE) H 06/16/19 09:43 Urine WBC (Auto) >182 /HPF 06/16/19 09:43 Urine RBC (Auto) 33 /HPF 06/16/19 09:43 Urine Bacteria (Auto) 3+ /HPF 06/16/19 09:43 Urine WBC Clumps MANY /HPF 06/16/19 09:43 Squamous Epi Cells Auto <1 /HPF 06/16/19 09:43 U Non-Squamous Epis Auto 1 /HPF 06/16/19 09:43 Urine Mucus (Auto) MOD /LPF 06/16/19 09:43 Urine Yeast (Bud[place]) PRESENT /HPF 06/16/19 09:43 Urine Ascorbic Acid NEGATIVE (NEGATIVE) 06/16/19 09:43 Impressions: Abdomen/Pelvis CT 06/16/19 10:17 IMPRESSION: Bibasilar atelectasis. Moderate stool in the rectosigmoid. Post hysterectomy Stable right ischial and sacral decubitus ulcers Plan Health Concerns: An appointment for the patient was set up at the wound care center for Thursday. She was going on every Thursday for care of the 2 stage IV ulcers. Because of her chronic narcotic use she should consider a medication for opiate-induced constipation such as Linzess or Relistor. Plan of Treatment: Home with home health. Follow-up with the wound care center on Fridays. Goals: Maintain independence despite paraplegia. Try to achieve complete wound healing. Time Spent: Greater than 30 Minutes Stroke Is this a Stroke Patient?: No Acute Heart Failure - Is this a Heart Failure Patient?: No
[2019-06-21] MEDS: DULOXETINE HCL 30 MG CAPSULE.DR PO SCH (09:24)
[2019-06-21] MEDS: ANASTROZOLE 1 MG TABLET PO SCH (09:24)
[2019-06-21] MEDS ORDERED: INFLUENZA QUAD (6MOS+) 2019-20 VAC 0.5 ML SYR IM ONE (09:49)
== END 2019-06-21 11:05 | disposition home health service (06) ==
LOC: ER 09:16 → EH 13:52 → INTOOBSV 13:52 → 4W 15:38
PROVIDERS: ADMIT Family Medicine; ATTEND Family Medicine
DX: K59.03 Drug induced constipation (principal); T40.2X5A Adverse effect of other opioids, initial encounter; G82.20 Paraplegia, unspecified; T85.9XXS Unspecified complication of internal prosthetic device, implant and graft, sequela; Y75.8 Miscellaneous neurological devices associated with adverse incidents, not elsewhere classified; R11.2 Nausea with vomiting, unspecified; L89.314 Pressure ulcer of right buttock, stage 4; L89.152 Pressure ulcer of sacral region, stage 2; L89.154 Pressure ulcer of sacral region, stage 4; R63.0 Anorexia; T83.511A Infection and inflammatory reaction due to indwelling urethral catheter, initial encounter; Z79.899 Other long term (current) drug therapy; Z79.891 Long term (current) use of opiate analgesic; Z74.01 Bed confinement status; Z99.3 Dependence on wheelchair; Z85.3 Personal history of malignant neoplasm of breast; Z90.49 Acquired absence of other specified parts of digestive tract; Z90.710 Acquired absence of both cervix and uterus; Z23 Encounter for immunization; D72.829 Elevated white blood cell count, unspecified
CPT/HCPCS: 99285; 96361; 96374; 36415; 87040; 87070; 87205; 85025; 87075; 87077; 80053; 81001; 87186; 74177; 90686; G0378 ×7; J1644 ×6; J3490 ×5; J2405 ×5; J7030 ×5; J0692